=== PATIENT | female | born 1940 | race Caucasian/White ===

== ENCOUNTER 2017-06-24 10:24 | Observation (INO) ==
[2017-06-24] MEDS ORDERED: Dextrose Gel 15 GM/37.5 ML TUBE PO PRN ×2 (14:25)
[2017-06-24] MEDS ORDERED: D5% in Water 1,000 ML IVC PRN ×2 (14:25→21:39)
[2017-06-24] MEDS ORDERED: *HR* Dextrose 50 % in Water (Syg) 50 ML SYRINGE IVP PRN (14:25)
--- NOTE | 2017-06-24 14:30 | Internal Med History&Physical ---
Date of Encounter: 06/24/17 Time of Encounter: 14:28 Assessment and Plan (1) Renal failure (ARF), acute on chronic Current visit: Yes Status: Acute [place] [facility] [place] Multiple lesions noted in kidneys History of IgA-MGUS Electropheresis for light chains ordered Hold all nephrotoxic medications Nephrology consulted Qualifiers: Acute renal failure type: unspecified Chronic kidney disease stage: stage 4 (severe) Qualified Code(s): N17.9 - Acute kidney failure, unspecified; N18.4 - Chronic kidney disease, stage 4 (severe); N18.4 - Chronic kidney disease , stage 4 (severe); N18.4 - Chronic kidney disease, stage 4 (severe); N18.4 - Chronic kidney disease, stage 4 (severe) (2) Anemia Current visit: Yes Status: Acute Likely secondary to CKD but check FOB Above transfusion limit Continue to monitor Qualifiers: Anemia type: unspecified type Qualified Code(s): D64.9 - Anemia, unspecified (3) MGUS (monoclonal gammopathy of unknown significance) Current visit: No Status: Acute Protein electrophoresis for light chains ordered. (4) Diabetes mellitus Current visit: No Status: Acute Hold oral agents and start LD SSI with meals and qACHS AccuChecks Qualifiers: Diabetes mellitus type: type 2 Diabetes mellitus complication status: with unspecified complications Diabetes mellitus auto care center manager insulin use: unspecified auto care center manager insulin use status Qualified Code(s): E11.8 - Type 2 diabetes mellitus with unspecified complications (5) Bronchitis Current visit: Yes Status: Acute She was started on Rocephin and Azithromycin at [facility] but she may be devolping PNA. Start Levaquin DuoNebs as needed Internal Medicine - H&P: HPI Chief complaint: ARF Admitted From: Hospital to Hospital Transfer History of present illness: 76 yr old woman transferred from [facility] in [place] with ARF. She has been previously diagnosed with IgA MGUS and was evaluated by Dr. Ramirez in 2014 for her CKD-III. She was admitted to [facility] about 3 days ago with "allergic Bronchitis and treated with Rocephin and Azithromycin plus SoluMedrol. Her routine labs reveal a significant change in renal function since her last available labs at [facility] (12/2016). At that time her KERI, Cr, eGFR were 45,2.31,21 respectively and at [facility] 81,3.59, 12 respectively. Additionally she appears volume overloaded with a possible pneumonia. A CT-Chest, Abdoman/ Pelvis as well as a renal U/S which showed nonspecific renal lesions. A possible hemorrhagic cyst was noted in the left idney and 3 small lessions likely representing benign cysts in the right kidney. Also a 4.5 x 4.1 cm mass was noted in the lower abdomen requiring further w/u. She cannot tell us if she's had changes to her stools, melanna or hematochezia. At [facility] she had a TTE which was read as grossly normal. She's hemodynamically stable but has coarse lung sounds and is requiring supplemental O2 now. Her additional comorbid conditions include TIA, DM-2, obesity and essential HTN. Past Med Surg Social Fam HX - Past Medical History Medical history: diabetes, hyperlipidemia, hypertension, renal disease Psychiatric history: depression - Past Surgical History Surgical History: appendectomy, cholecystectomy, hysterectomy, knee replacement , orthopedic, other - Social History Smoking Status: Never smoker Alcohol use: none Drug use: none - Family History Mother Living Status: Hx Family Endocrine Disorder: Yes (DM) Father Living Status: Internal Medicine - H&P: Meds Allopurinol [Zyloprim 100 MG] 200 mg PO DAILY 05/13/15 [History] Cholecalciferol (Vitamin D3) [Vitamin D3] 10,000 unit PO DAILY 05/13/15 [History ] HYDROcodone/Acet 5/325 mg [[place] 5-325 mg] 1 tab PO Q6H PRN 05/13/15 [History] amLODIPine [Norvasc] 5 mg PO DAILY 05/13/15 [History] GlipiZIDE XL (24 HR) [Glucotrol XL] 2.5 mg PO DAILY 03/22/16 [History] Lovastatin [Mevacor] 40 mg PO HS 03/22/16 [History] [place]-3/Dha/Epa/Fish Oil [Fish Oil 1,000 mg Softgel] 1 each PO DAILY 03/22/16 [ History] Venlafaxine [Effexor] 75 mg PO TID 03/22/16 [History] Aspirin Enteric Coated [Aspirin EC] 81 mg PO DAILY #30 tablet. 03/25/16 [Rx] cloNIDine HCl [CloNIDine HCl] 1 tab PO BID 06/24/17 [History] 3 Allergy/AdvReac Type Severity Reaction Status Date / Time ETHAN Inhibitors Allergy Cough Verified 03/22/16 16:25 All Systems PM: A 10-system review of systems was performed and is negative for pertinent findings except as documented above in the HPI. - Constitutional Vitals: Temp Pulse Resp BP Pulse Ox 98.9 F 103 15 151/76 96 06/24/17 13:57 06/24/17 13:57 06/24/17 13:57 06/24/17 13:57 06/24/17 13:57 Internal Med - H&P Results - Labs CBC & Chem 7: 06/24/17 14:40 06/24/17 14:40
[2017-06-24 14:54] LABS: Basophils % 0.2 %; Eosinophils # 0.1 K/mcL (0.0-0.6); Eosinophils % 0.7 %; Hematocrit 24.1 % (35.3-44.9); Hemoglobin 8.1 g/dL (11.5-15.4); Immature Granulocytes % 1.2 % (0-4); Lymphocytes % 8.8 %; Mean Corpuscular HGB Conc 33.6 g/dL (31.6-35.5); Mean Corpuscular Hemoglobin 29.7 pg (28.0-33.3); Mean Corpuscular Volume 88.3 fL (83.0-100.0); Mean Platelet Volume 9.9 fL (9.4-12.4); Monocytes # 0.4 K/mcL (0.0-1.3); Monocytes % 3.3 %; Neutrophils # 9.9 K/mcL (1.6-8.9); Platelet Count 114 K/mcL (140-400); Red Blood Count 2.73 M/mcL (3.82-4.97); Red Cell Distribution Width 14.4 % (11.5-14.5); Segmented Neutrophils % 85.8 %
[2017-06-24 15:03] LABS: Albumin 3.3 g/dL (3.5-5.7); Bilirubin,Total 0.4 mg/dL (0.3-1.0); Calcium 8.2 mg/dL (8.6-10.3); Potassium 5.1 mEq/L (3.5-5.1)
[2017-06-24 15:09] LABS: Albumin/Globulin Ratio 1.4 (1.1-2.2); Globulin 2.3 g/dL (2.4-3.5); Total Protein 5.6 g/dL (6.4-8.9)
[2017-06-24] MEDS ORDERED: Acetaminophen 325 MG TABLET PO PRN (16:42)
[2017-06-24] MEDS: Insulin LISPRO 300 UNITS/3 ML VIAL SQ SCH ×2 (17:31→22:03)
[2017-06-24] MEDS: Levofloxacin 750 MG/150 ML 750 MG/150 ML BAG IVPB SCH (17:32)
[2017-06-24] MEDS: cloNIDine HCl 0.1 MG TABLET PO SCH (21:59)
--- NOTE | 2017-06-25 07:41 | Nephrology Consult Note ---
Date of Encounter: 06/25/17 Time of Encounter: 07:39 Assessment and Plan (1) Renal failure (ARF), acute on chronic Current Visit: Yes Status: Acute The patient has a history of stage III chronic kidney disease with significant proteinuria likely related related to diabetic nephropathy. Her serum creatinine has been known to progressively worsen between 2015 in 2017. At this point time is difficult to say if her worsening renal function is related to progressive chronic kidney disease or if there is an acute component superimposed on chronic kidney disease. Her renal ultrasound did not suggest any hydronephrosis. She currently has a Menendez catheter and so we cannot evaluate her bladder emptying. There is no obvious sign of nephrotoxin exposure. This may represent progressive chronic kidney disease. We will check a few other studies as well as workup her anemia while she is here. Nephrotoxins should be avoided. Additional recommendations will be made as her evaluation proceeds. Qualifiers: Acute renal failure type: unspecified Chronic kidney disease stage: stage 4 (severe) Qualified Code(s): N17.9 - Acute kidney failure, unspecified; N18.4 - Chronic kidney disease, stage 4 (severe); N18.4 - Chronic kidney disease , stage 4 (severe); N18.4 - Chronic kidney disease, stage 4 (severe); N18.4 - Chronic kidney disease, stage 4 (severe) (2) Benign hypertension with chronic kidney disease, stage III Current Visit: Yes Status: Acute (3) Type 2 diabetes mellitus with diabetic chronic kidney disease Current Visit: Yes Status: Acute Qualifiers: Diabetes mellitus director long term care insulin use: with snf use Chronic kidney disease stage: stage 3 (moderate) Qualified Code(s): E11.22 - Type 2 diabetes mellitus with diabetic chronic kidney disease; N18.3 - Chronic kidney disease, stage 3 (moderate); N18.3 - Chronic kidney disease, stage 3 (moderate); Z79.4 - intermediate project manager (current) use of insulin; Z79.4 - custodial (current) use of insulin; Z79.4 - intermediate project manager (current) use of insulin; Z79.4 - custodial (current) use of insulin (4) MGUS (monoclonal gammopathy of unknown significance) Current Visit: No Status: Acute History of Present Illness - History of Present Illness This is a 76-year-old female was previously previously been seen for stage III chronic kidney disease. She was recently admitted a [facility] in [place] for which she describes as acute bronchitis. [facility] and management per her request. She says she was admitted to the hospital after several days of cough with sputum production along with shortness of breath. She was diagnosed with bronchitis and treated with antibiotics. On her transfer to a dinner she was noted to have a serum creatinine of 3.30. Previous creatinine values were 2.31 in December 2016 and 1.9 in 2016. She has a history of proteinuria. She also been diagnosed with IgA MGUS seen oncology previously. She does have a history of diabetes hypertension and arthritis. She has symptoms of bladder incontinence. She also says that she has several urinary tract infections per year and receives antibiotics. She denies any hematuria. She denies taking any [id number] nonsteroidal anti-inflammatory agents. She says in general she is feeling better from the standpoint of her bronchitis. The recent renal ultrasound shows normal-sized kidneys with no hydronephrosis. Several renal cysts have been noted. Past Med Surg Social Fam HX - Past Medical History Medical history: diabetes, hyperlipidemia, hypertension, renal disease Psychiatric history: depression - Past Surgical History Surgical History: appendectomy, cholecystectomy, hysterectomy, knee replacement , orthopedic, other - Social History Smoking Status: Never smoker Alcohol use: none Drug use: none - Family History Mother Living Status: Hx Family Endocrine Disorder: Yes (DM) Father Living Status: Medications and Allergies Allopurinol [Zyloprim 100 MG] 200 mg PO DAILY 05/13/15 [History] Cholecalciferol (Vitamin D3) [Vitamin D3] 10,000 unit PO DAILY 05/13/15 [History ] HYDROcodone/Acet 5/325 mg [[place] 5-325 mg] 1 tab PO Q6H PRN 05/13/15 [History] amLODIPine [Norvasc] 5 mg PO DAILY 05/13/15 [History] GlipiZIDE XL (24 HR) [Glucotrol XL] 2.5 mg PO DAILY 03/22/16 [History] Lovastatin [Mevacor] 40 mg PO HS 03/22/16 [History] [place]ina-3/Dha/Epa/Fish Oil [Fish Oil 1,000 mg Softgel] 1 each PO DAILY 03/22/16 [ History] Venlafaxine [Effexor] 75 mg PO TID 03/22/16 [History] Aspirin Enteric Coated [Aspirin EC] 81 mg PO DAILY #30 tablet. 03/25/16 [Rx] cloNIDine HCl [CloNIDine HCl] 1 tab PO BID 06/24/17 [History] 3 Allergy/AdvReac Type Severity Reaction Status Date / Time ETHAN Inhibitors Allergy Cough Verified 03/22/16 16:25 Review of Systems Constitutional: as per HPI, weakness Eyes: bilateral: blurred vision (patient denies), diplopia (patient denies) Nose, mouth and throat: no dizziness, no headache(s) Cardiovascular: as per HPI, dyspnea, dyspnea on exertion Respiratory: as per HPI, cough, dyspnea, dyspnea on exertion Gastrointestinal: nausea, vomiting Genitourinary Female: urinary incontinence Musculoskeletal: no muscle weakness, no numbness Integumentary: no hirsutism, no striae Neurological: weakness Psychiatric: no depression, no difficulty concentrating Endocrine: as per HPI Hematologic/Lymphatic: no easy bruising, no lymphadenopathy Exam - Vital Signs Vital signs: Initial Vital Signs Temp Pulse Resp BP Pulse Ox 98.9 F 103 15 151/76 96 06/24/17 13:57 06/24/17 13:57 06/24/17 13:57 06/24/17 13:57 06/24/17 13:57 Vital Signs - Last 8 Hours Temp Pulse Resp BP Pulse Ox 06/25/17 04:46 97.6 F 90 18 156/75 98 Intake and Output 06/24/17 06/24/17 06/25/17 15:59 23:59 07:59 Intake Total 260 / 260 Output Total 1450 / 1450 650 / 650 Balance -1190 / -1190 -650 / -650 Intake: Oral 260 / 260 Output: Catheter 1450 / 1450 650 / 650 Other: # Urine Diapers 1 2 Weight 158.2 kg 156.5 kg Blood Glucose* 275 Patient Weight 06/25/17 23:59 Weight 156.5 kg - General Appearance Exam: Patient is alert and oriented. She is in no acute distress. She is obese. She appears chronically ill. She appears pale. Lungs diminished breath sounds otherwise clear. Heart regular rate and rhythm without a murmur or S3 or S4 gallops clicks or rubs. Abdomen shows normal bowel sounds bruits masses megaly or tenderness. Lower 70 show minimal swelling. Results - Lab Results 06/24/17 14:40 06/24/17 14:40 Most recent lab results Calcium 8.2 mg/dL (8.6-10.3) L 06/24/17 14:40 Urine Creatinine 37 mg/dL 06/24/17 17:30 Urine Sodium 24.0 mEq/L 06/24/17 17:30 Consult Discharge Plan - Plan Referrals: Bill Candelaria MD [Primary Care Provider] -
[2017-06-25] MEDS: Cholecalciferol (D-3) 1,000 UNIT TABLET PO SCH (08:22)
[2017-06-25] MEDS: amLODIPine 5 MG TABLET PO SCH (08:22)
[2017-06-25] MEDS: Aspirin Enteric Coated 81 MG Tablet PO SCH (08:22)
[2017-06-25] MEDS: (Omega-3/Dha/Epa/Fish Oil [Fish Oil 1,000 Mg Softgel] PO SCH (08:23)
[2017-06-25] MEDS: Insulin LISPRO 300 UNITS/3 ML VIAL SQ SCH ×4 (08:23→22:02)
[2017-06-25] MEDS: cloNIDine HCl 0.1 MG TABLET PO SCH ×2 (08:23→22:01)
[2017-06-25] MEDS ORDERED: Levofloxacin 500 MG/100 ML 500 MG/100 ML BAG IVPB SCH (09:00)
[2017-06-25 09:07] LABS: Phosphorous 6.2 mg/dL (2.7-4.5)
[2017-06-25 09:27] LABS: Folate 14.9 ng/mL (3.0-16.0)
--- NOTE | 2017-06-25 12:12 | General Surgery Consult Note ---
Date of Encounter: 06/25/17 Time of Encounter: 12:09 Assessment and Plan (1) Abdominal mass Current Visit: Yes Status: Acute Going to have the CT uploaded into our PACS system. Once that is uploaded our review the scans with radiology. Qualifiers: Qualified Code(s): R19.00 - Intra-abdominal and pelvic swelling, mass and lump, unspecified site History of Present Illness Reason for consult: other (This 76-year-old female presents to the hospital with renal failure and a questionable pneumonia. However she was transferred in from an outlying facility. On her pre-transfers CT there was a mass identified in her pelvis. I was asked to see her for evaluation of this mass.) Past Med Surg Social Fam HX - Past Medical History Medical history: diabetes, hyperlipidemia, hypertension, renal disease Psychiatric history: depression - Past Surgical History Surgical History: appendectomy, cholecystectomy, hysterectomy, knee replacement , orthopedic, other - Social History Smoking Status: Never smoker Alcohol use: none Drug use: none - Family History Mother Living Status: Hx Family Endocrine Disorder: Yes (DM) Father Living Status: Medications and Allergies Allopurinol [Zyloprim 100 MG] 200 mg PO DAILY 05/13/15 [History] Cholecalciferol (Vitamin D3) [Vitamin D3] 10,000 unit PO DAILY 05/13/15 [History ] HYDROcodone/Acet 5/325 mg [[place] 5-325 mg] 1 tab PO Q6H PRN 05/13/15 [History] amLODIPine [Norvasc] 5 mg PO DAILY 05/13/15 [History] GlipiZIDE XL (24 HR) [Glucotrol XL] 2.5 mg PO DAILY 03/22/16 [History] Lovastatin [Mevacor] 40 mg PO HS 03/22/16 [History] [place]-3/Dha/Epa/Fish Oil [Fish Oil 1,000 mg Softgel] 1 each PO DAILY 03/22/16 [ History] Venlafaxine [Effexor] 75 mg PO TID 03/22/16 [History] Aspirin Enteric Coated [Aspirin EC] 81 mg PO DAILY #30 tablet. 03/25/16 [Rx] cloNIDine HCl [CloNIDine HCl] 1 tab PO BID 06/24/17 [History] 3 Allergy/AdvReac Type Severity Reaction Status Date / Time ETHAN Inhibitors Allergy Cough Verified 03/22/16 16:25 Review of Systems All systems PM: reviewed and no additional remarkable complaints except as stated All systems PM: A 10-system review of systems was performed and is negative for pertinent findings except as documented above in the HPI. General Surgery Exam Initial Vital Signs Temp Pulse Resp BP Pulse Ox 98.9 F 103 15 151/76 96 06/24/17 13:57 06/24/17 13:57 06/24/17 13:57 06/24/17 13:57 06/24/17 13:57 - Eyes PERRL, normal ocular movement - ENT normal pinna, normal mucosa - Respiratory normal respiratory effort, clear to percussion - Abdomen Abdomen general surgery: Present: soft, non tender - Integumentary Integumentary general surgery: Present: warm and dry, no abnormal pigmentation - Neurologic Present: CN 2-12 grossly intact, normal sensation Exam Initial Vital Signs Temp Pulse Resp BP Pulse Ox 98.9 F 103 15 151/76 96 06/24/17 13:57 06/24/17 13:57 06/24/17 13:57 06/24/17 13:57 06/24/17 13:57 Results - Labs 06/24/17 14:40 06/24/17 14:40 Abnormal lab results WBC 11.5 K/mcL (4.3-11.1) H 06/24/17 14:40 RBC 2.73 M/mcL (3.82-4.97) L 06/24/17 14:40 Hgb 8.1 g/dL (11.5-15.4) L 06/24/17 14:40 Hct 24.1 % (35.3-44.9) L 06/24/17 14:40 Plt Count 114 K/mcL (140-400) L 06/24/17 14:40 Neutrophils # 9.9 K/mcL (1.6-8.9) H 06/24/17 14:40 Sodium 130 mEq/L (136-145) L 06/24/17 14:40 Carbon Dioxide 19 mEq/L (23-29) L 06/24/17 14:40 BUN 80 mg/dL (8-23) H 06/24/17 14:40 Creatinine 3.30 mg/dL (0.60-1.20) H 06/24/17 14:40 Est GFR ( Amer) 17 (> 60) L 06/24/17 14:40 Est GFR (Non-Af Amer) 14 (> 60) L 06/24/17 14:40 Glucose 188 mg/dL (70-105) H 06/24/17 14:40 POC Glucose 254 (58-89) H 06/25/17 07:40 Lactic Acid 0.3 mmol/L (0.5-2.2) L 06/24/17 14:40 Calcium 8.2 mg/dL (8.6-10.3) L 06/24/17 14:40 Phosphorus 6.2 mg/dL (2.7-4.5) H 06/25/17 08:20 Iron 17 mcg/dL (50-170) L 06/25/17 08:20 % Saturation 6 % (15-50) L 06/25/17 08:20 Transferrin 192 mg/dL (203-362) L 06/25/17 08:20 Ferritin 175 ng/ml (10-120) H 06/25/17 08:20 Serum Total Protein 5.6 g/dL (6.4-8.9) L 06/24/17 14:40 Albumin 3.3 g/dL (3.5-5.7) L 06/24/17 14:40 Globulin 2.3 g/dL (2.4-3.5) L 06/24/17 14:40 Urine Osmolality 195 mOsm/kg (300-1090) L 06/24/17 17:30 Diabetes panel 06/24/17 Range/Units 14:40 Sodium 130 L (136-145) mEq/L Potassium 5.1 (3.5-5.1) mEq/L Chloride 102 (98-107) mEq/L Carbon Dioxide 19 L (23-29) mEq/L BUN 80 H (8-23) mg/dL Creatinine 3.30 H (0.60-1.20) mg/dL Glucose 188 H (70-105) mg/dL Calcium 8.2 L (8.6-10.3) mg/dL AST 20 (13-39) Units/L ALT 19 (7-52) Units/L Alkaline Phosphatase 79 (34-104) Units/L Albumin 3.3 L (3.5-5.7) g/dL Calcium panel 06/24/17 06/25/17 Range/Units 14:40 08:20 Calcium 8.2 L (8.6-10.3) mg/dL Phosphorus 6.2 H (2.7-4.5) mg/dL Albumin 3.3 L (3.5-5.7) g/dL Pituitary panel 06/24/17 Range/Units 14:40 Sodium 130 L (136-145) mEq/L Potassium 5.1 (3.5-5.1) mEq/L Chloride 102 (98-107) mEq/L Carbon Dioxide 19 L (23-29) mEq/L BUN 80 H (8-23) mg/dL Creatinine 3.30 H (0.60-1.20) mg/dL Glucose 188 H (70-105) mg/dL Calcium 8.2 L (8.6-10.3) mg/dL Adrenal panel 06/24/17 Range/Units 14:40 Sodium 130 L (136-145) mEq/L Potassium 5.1 (3.5-5.1) mEq/L Chloride 102 (98-107) mEq/L Carbon Dioxide 19 L (23-29) mEq/L BUN 80 H (8-23) mg/dL Creatinine 3.30 H (0.60-1.20) mg/dL Glucose 188 H (70-105) mg/dL Calcium 8.2 L (8.6-10.3) mg/dL Total Bilirubin 0.4 (0.3-1.0) mg/dL AST 20 (13-39) Units/L ALT 19 (7-52) Units/L Alkaline Phosphatase 79 (34-104) Units/L Albumin 3.3 L (3.5-5.7) g/dL All other labs normal. Consult Discharge Plan - Plan Referrals: Bill Candelaria MD [Primary Care Provider] -
--- NOTE | 2017-06-25 16:16 | Internal Med Progress Note ---
Date of Encounter: 06/25/17 Time of Encounter: 10:30 - Assessment and plan (1) Acute bronchitis Current Visit: Yes Status: Suspected Assessment and plan: Currently on IV Levaquin. Qualifiers: Bronchitis organism: other organism Qualified Code(s): J20.8 - Acute bronchitis due to other specified organisms (2) Diabetic nephropathy Current Visit: Yes Status: Suspected Assessment and plan: Pt with worsening renal function. Currently in work up per nephrology. 24 hour urine at this time. Qualifiers: Diabetes mellitus type: type 2 Qualified Code(s): E11.21 - Type 2 diabetes mellitus with diabetic nephropathy (3) Atrial fibrillation Current Visit: Yes Status: Chronic Assessment and plan: Continue home meds. Qualifiers: Atrial fibrillation type: chronic Qualified Code(s): I48.2 - Chronic atrial fibrillation (4) Anemia Current Visit: Yes Status: Chronic Qualifiers: Anemia type: due to chronic kidney disease Chronic kidney disease stage: stage 4 (severe) Qualified Code(s): N18.4 - Chronic kidney disease, stage 4 ( severe); D63.1 - Anemia in chronic kidney disease; D63.1 - Anemia in chronic kidney disease (5) Hypertension Current Visit: No Status: Chronic Assessment and plan: Controlled at this time. Continue meds. Qualifiers: Hypertension type: essential hypertension Qualified Code(s): I10 - Essential (primary) hypertension (6) MGUS (monoclonal gammopathy of unknown significance) Current Visit: No Status: Chronic (7) Abdominal mass Current Visit: Yes Status: Acute Assessment and plan: Surgery eval. Qualifiers: Abdominal location: other location Qualified Code(s): R19.09 - Other intra- abdominal and pelvic swelling, mass and lump (8) Morbid obesity with BMI of 50.0-59.9, adult Current Visit: Yes Status: Chronic - Subjective Interval history: Ms Rubin is currently in observation for acute on chronic renal failure. She remains moderate to high risk due to potential for worsening clinical status. Ms Rubin has no new complaints at this time. No CP or SOB at this time. No fever noted. Work up in progress - appreciate nephrology input. - Constitutional Vitals: Temp Pulse Resp BP Pulse Ox 98.3 F 86 18 136/77 97 06/25/17 11:36 06/25/17 11:36 06/25/17 11:36 06/25/17 11:36 06/25/17 11:36 General appearance: Present: A&O X 3, answers questions appropriately - Head Head exam: Present: normocephalic - Eye Eye exam: Present: EOMI, conjuntiva pink - ENT ENT exam: Present: mucous membranes moist - Respiratory Respiratory exam: Present: decreased breath sounds, CTAB. Absent: rales, rhonchi, wheezes - Cardiovascular Cardiovascular exam: Present: RRR. Absent: tachycardia - GI/Abdominal GI/Abdominal exam: Present: soft. Absent: tenderness - Extremities Exam Extremities exam: Present: pedal edema, warm. Absent: tenderness - Neurological Exam Neurological exam: Present: alert, oriented X3 - Skin Skin exam: Present: dry, warm. Absent: rash Internal Medicine: Result - Labs CBC & Chem 7: 06/24/17 14:40 06/24/17 14:40 - Impressions Impressions Retroperitoneum Ultrasound 06/24/17 14:17 IMPRESSION: 1. Limited ultrasound of the kidneys due to patient body habitus but no gross evidence for hydronephrosis. However, I would suggest CT scan for further evaluation. D/ / Antwan Harris MD / Antwan Harris MD Interpreting Provider: Antwan Harris MD Chest X-Ray 06/24/17 14:44 IMPRESSION: No acute process. D/ / Will Hensley MD / Will Hensley MD Interpreting Provider: Will Hensley MD Consult Discharge Plan - Plan Referrals: Bill Candelaria MD [Primary Care Provider] -
[2017-06-26 05:24] LABS: Hematocrit 24.4 % (35.3-44.9); Hemoglobin 7.7 g/dL (11.5-15.4); Mean Corpuscular HGB Conc 31.6 g/dL (31.6-35.5); Mean Corpuscular Hemoglobin 28.8 pg (28.0-33.3); Mean Corpuscular Volume 91.4 fL (83.0-100.0); Mean Platelet Volume 10.1 fL (9.4-12.4); Platelet Count 150 K/mcL (140-400); Red Blood Count 2.67 M/mcL (3.82-4.97); Red Cell Distribution Width 14.5 % (11.5-14.5)
[2017-06-26 05:32] LABS: Albumin/Globulin Ratio 1.3 (1.1-2.2); Bilirubin,Total 0.3 mg/dL (0.3-1.0); Calcium 8.2 mg/dL (8.6-10.3); Globulin 2.4 g/dL (2.4-3.5); Potassium 5.3 mEq/L (3.5-5.1); Total Protein 5.4 g/dL (6.4-8.9)
[2017-06-26] MEDS: Loratadine 10 MG TABLET PO SCH (08:02)
[2017-06-26] MEDS: amLODIPine 5 MG TABLET PO SCH (08:02)
[2017-06-26] MEDS: (Omega-3/Dha/Epa/Fish Oil [Fish Oil 1,000 Mg Softgel] PO SCH (08:02)
[2017-06-26] MEDS: Aspirin Enteric Coated 81 MG Tablet PO SCH (08:02)
[2017-06-26] MEDS: Cholecalciferol (D-3) 1,000 UNIT TABLET PO SCH (08:02)
[2017-06-26] MEDS: cloNIDine HCl 0.1 MG TABLET PO SCH ×2 (08:02→21:07)
[2017-06-26] MEDS: Insulin LISPRO 300 UNITS/3 ML VIAL SQ SCH ×4 (08:03→21:07)
--- NOTE | 2017-06-26 09:08 | Internal Med Progress Note ---
<Hubert Morales - Last Filed: 06/26/17 14:52> Date of Encounter: 06/26/17 Time of Encounter: 08:50 - Assessment and plan (1) Acute bronchitis Current Visit: Yes Status: Suspected Assessment and plan: Currently on IV Levaquin. 750mg IV Q48H; received 1 dose thus far. Possible discharge tomorrow. Qualifiers: Bronchitis organism: other organism Qualified Code(s): J20.8 - Acute bronchitis due to other specified organisms (2) Diabetic nephropathy Current Visit: Yes Status: Suspected Assessment and plan: Pt with minimal improvement in renal function. Currently in work up per nephrology-Dr. Posey. 24 hour urine protein collected. Avoid nephrotoxins as possible. Spoke with Leann(nephrology PATIENT SAFETY COORDINATOR), maicol to follow up as outpatient. Qualifiers: Diabetes mellitus type: type 2 Qualified Code(s): E11.21 - Type 2 diabetes mellitus with diabetic nephropathy (3) Atrial fibrillation with controlled ventricular rate Current Visit: Yes Status: Acute Assessment and plan: Continue home meds. (4) Anemia Current Visit: Yes Status: Chronic Assessment and plan: Hgb down from 8.1 yesterday to 7.7 today. Patient on ASA-home medication. Patient was to received IV iron today, extravasation of medication. Will start oral iron. Qualifiers: Anemia type: due to chronic kidney disease Chronic kidney disease stage: stage 4 (severe) Qualified Code(s): N18.4 - Chronic kidney disease, stage 4 ( severe); D63.1 - Anemia in chronic kidney disease; D63.1 - Anemia in chronic kidney disease (5) Hypertension Current Visit: No Status: Chronic Assessment and plan: Controlled at this time. Continue meds. Qualifiers: Hypertension type: essential hypertension Qualified Code(s): I10 - Essential (primary) hypertension (6) MGUS (monoclonal gammopathy of unknown significance) Current Visit: No Status: Chronic (7) Abdominal mass Current Visit: Yes Status: Acute Assessment and plan: Evaluated by surgery, plan to follow up as outpatient. Qualifiers: Abdominal location: other location Qualified Code(s): R19.09 - Other intra- abdominal and pelvic swelling, mass and lump (8) Morbid obesity with BMI of 50.0-59.9, adult Current Visit: Yes Status: Chronic - Time Spent With Patient less than 15 minutes - Subjective Interval history: No acute events overnight, Afebrile, vital stable on 2LMP supplemental O2. No acute complaints currently. Notes overall energy has improved. Patient was laying in bed eating breakfast upon entering room. Possible discharge tomorrow. - Constitutional Vitals: Temp Pulse Resp BP Pulse Ox 97.8 F 85 18 145/58 98 06/26/17 07:41 06/26/17 07:41 06/26/17 07:41 06/26/17 07:41 06/26/17 07:41 General appearance: Present: A&O X 3, no acute distress, answers questions appropriately - Head Head exam: Present: atraumatic, normocephalic - Eye Eye exam: Present: EOMI, conjuntiva pink - ENT ENT exam: Present: mucous membranes moist - Respiratory Respiratory exam: Present: decreased breath sounds, wheezes. Absent: respiratory distress, rhonchi, stridor - Cardiovascular Cardiovascular exam: Present: RRR. Absent: diastolic murmur, systolic murmur - GI/Abdominal GI/Abdominal exam: Present: normal bowel sounds, soft. Absent: tenderness - Extremities Exam Extremities exam: Present: pedal edema (1+). Absent: cyanotic, tenderness - Neurological Exam Neurological exam: Present: alert, oriented X3 - Skin Skin exam: Present: dry, warm Internal Medicine: Result - Labs CBC & Chem 7: 06/26/17 04:42 06/26/17 04:42 Labs: Short CBC 06/26/17 Range/Units 04:42 WBC 10.0 (4.3-11.1) K/mcL Hgb 7.7 L (11.5-15.4) g/dL Hct 24.4 L (35.3-44.9) % Plt Count 150 (140-400) K/mcL BMP 06/26/17 04:42 Sodium 133 L Potassium 5.3 H Chloride 106 Carbon Dioxide 18 L BUN 78 H Creatinine 3.00 H Glucose 203 H Calcium 8.2 L Liver Function 06/26/17 Range/Units 04:42 Total Bilirubin 0.3 (0.3-1.0) mg/dL AST 14 (13-39) Units/L ALT 13 (7-52) Units/L Alkaline Phosphatase 63 (34-104) Units/L Albumin 3.0 L (3.5-5.7) g/dL Consult Discharge Plan - Plan Referrals: Raudel Reagan DO [Partnered Physician] - 07/11/17 10:50 am (hospital follow- up pelvic mass) Bill Candelaria MD [Primary Care Provider] - <Larry Adam A - Last Filed: 06/26/17 17:51> Date of Encounter: 06/26/17 - Assessment and plan (1) Acute bronchitis Current Visit: Yes Status: Suspected Qualifiers: Bronchitis organism: other organism Qualified Code(s): J20.8 - Acute bronchitis due to other specified organisms (2) Diabetic nephropathy Current Visit: Yes Status: Suspected Qualifiers: Diabetes mellitus type: type 2 Qualified Code(s): E11.21 - Type 2 diabetes mellitus with diabetic nephropathy (3) Atrial fibrillation Current Visit: Yes Status: Chronic Qualifiers: Atrial fibrillation type: chronic Qualified Code(s): I48.2 - Chronic atrial fibrillation (4) Anemia Current Visit: Yes Status: Chronic Qualifiers: Anemia type: due to chronic kidney disease Chronic kidney disease stage: stage 4 (severe) Qualified Code(s): N18.4 - Chronic kidney disease, stage 4 ( severe); D63.1 - Anemia in chronic kidney disease; D63.1 - Anemia in chronic kidney disease (5) Hypertension Current Visit: No Status: Chronic Qualifiers: Hypertension type: essential hypertension Qualified Code(s): I10 - Essential (primary) hypertension (6) MGUS (monoclonal gammopathy of unknown significance) Current Visit: No Status: Chronic (7) Abdominal mass Current Visit: Yes Status: Acute Qualifiers: Abdominal location: other location Qualified Code(s): R19.09 - Other intra- abdominal and pelvic swelling, mass and lump (8) Morbid obesity with BMI of 50.0-59.9, adult Current Visit: Yes Status: Chronic - Time Spent With Patient My time was 37min - Constitutional Vitals: Temp Pulse Resp BP Pulse Ox 98 F 84 18 163/78 96 06/26/17 15:23 06/26/17 15:23 06/26/17 15:23 06/26/17 15:23 06/26/17 15:23 Internal Medicine: Result - Labs CBC & Chem 7: 06/26/17 04:42 06/26/17 04:42 Labs: Short CBC 06/26/17 Range/Units 04:42 WBC 10.0 (4.3-11.1) K/mcL Hgb 7.7 L (11.5-15.4) g/dL Hct 24.4 L (35.3-44.9) % Plt Count 150 (140-400) K/mcL BMP 06/26/17 04:42 Sodium 133 L Potassium 5.3 H Chloride 106 Carbon Dioxide 18 L BUN 78 H Creatinine 3.00 H Glucose 203 H Calcium 8.2 L Liver Function 06/26/17 Range/Units 04:42 Total Bilirubin 0.3 (0.3-1.0) mg/dL AST 14 (13-39) Units/L ALT 13 (7-52) Units/L Alkaline Phosphatase 63 (34-104) Units/L Albumin 3.0 L (3.5-5.7) g/dL - Attending Attestation I examined this patient and my medical decision-making was reviewed with the Resident Physician on 06/26/17. I agree with the documented findings, disposition and treatment plan as described except to the extent set forth below. Ms Rubin is currently in observation for acute on chronic renal failure. Ms Rubin feels OK. She had iron infusion infiltrate today. No fever or chills. H/H low as well today. Completing 24 h urine. Exam alert Comfortable Mucus membranes dry Heart irreg No wheeze Abd soft Area of infiltration of IV iron noted R forearm I/P 1. Anemia due to CKD 2. CKD Further diagnoses and plan as above. Anticipate d/c in next 1-2 days
[2017-06-26] MEDS ORDERED: Ferumoxytol 510 MG in 0.9 % Sodium Chloride 100 ML IVPB ONE (10:14)
--- NOTE | 2017-06-26 10:26 | Nephrology Progress Note ---
Date of Encounter: 06/26/17 Time of Encounter: 09:35 - Assessment and Plan (1) Renal failure (ARF), acute on chronic Current Visit: Yes Status: Acute SAUL superimposed on CKD 4, baseline creat 1.8-2.3. Hx-IgA MGUS, proteinuria. Renal fct improving, creat 3.0. Documented urine output 1700cc. 24 hr urine protein in progress.Tsat 6-will order Feraheme infusion. Continue to monitor, avoid nephrotoxins. Qualifiers: Acute renal failure type: unspecified Chronic kidney disease stage: stage 4 (severe) Qualified Code(s): N17.9 - Acute kidney failure, unspecified; N18.4 - Chronic kidney disease, stage 4 (severe); N18.4 - Chronic kidney disease , stage 4 (severe); N18.4 - Chronic kidney disease, stage 4 (severe); N18.4 - Chronic kidney disease, stage 4 (severe) Subjective Interval history: Resting quietly, states breathing much easier and feels better. Objective - Vital Signs Vital signs: Vital Signs Temp Pulse Resp BP Pulse Ox 06/26/17 07:41 97.8 F 85 18 145/58 98 06/26/17 04:26 97.9 F 89 18 149/60 94 06/25/17 23:12 98.9 F 92 17 158/82 98 06/25/17 19:34 98.8 F 96 19 193/88 96 06/25/17 16:12 98.6 F 94 18 137/75 96 06/25/17 11:36 98.3 F 86 18 136/77 97 Intake and Output 06/25/17 06/26/17 06/26/17 23:59 07:59 15:59 Intake Total 240 / 240 480 / 480 Output Total 400 / 400 1200 / 1200 Balance -160 / -160 -1200 / -1200 480 / 480 Intake: Oral 240 / 240 480 / 480 Output: Urine 650 / 650 Catheter 400 / 400 550 / 550 Other: Meal Dinner Breakfast Percent of Meal Consumed 75% 95% Weight 157 kg Blood Glucose* 254 196 Patient Weight 06/26/17 23:59 Weight 157 kg - General Appearance General appearance: Present: well-developed, well-nourished, appears started age , obese EENT: Present: mucous membranes moist Neck: Present: no JVD Respiratory: Present: clear Cardiology: Present: edema, regular rate, regular rhythm Additional Comments: mild Gastrointestinal: Present: normoactive bowel sounds, no tenderness, obese Integumentary: Present: warm and dry Neurologic: Present: alert and oriented x3 - Lab 06/26/17 04:42 06/26/17 04:42 Most recent lab results Calcium 8.2 mg/dL (8.6-10.3) L 06/26/17 04:42 Phosphorus 6.2 mg/dL (2.7-4.5) H 06/25/17 08:20 Magnesium 2.3 mg/dL (1.6-2.6) 06/26/17 04:42 Urine Creatinine 37 mg/dL 06/24/17 17:30 Urine Sodium 24.0 mEq/L 06/24/17 17:30 Consult Discharge Plan - Plan Referrals: Bill Candelaria MD [Primary Care Provider] -
--- NOTE | 2017-06-26 11:13 | General Surgery Progress Note ---
Date of Encounter: 06/26/17 Time of Encounter: 10:30 - Assessment and Plan (1) Abdominal mass Current Visit: Yes Status: Acute Recommend outpatient follow-up with Dr. Reagan for further work-up and management No urgent surgical intervention indicated at this time Recommend continued treatment of acute renal failure prior to proceeding with further surgical intervention Will schedule appointment for [address] Reagan Continue Diabetic Diet Supportive measures Qualifiers: Abdominal location: other location Qualified Code(s): R19.09 - Other intra- abdominal and pelvic swelling, mass and lump (2) Renal failure (ARF), acute on chronic Current Visit: Yes Status: Chronic Management per nephrology Qualifiers: Acute renal failure type: unspecified Chronic kidney disease stage: stage 4 (severe) Qualified Code(s): N17.9 - Acute kidney failure, unspecified; N18.4 - Chronic kidney disease, stage 4 (severe); N18.4 - Chronic kidney disease , stage 4 (severe); N18.4 - Chronic kidney disease, stage 4 (severe); N18.4 - Chronic kidney disease, stage 4 (severe) Subjective Patient reports: no new complaints, feels better, tolerating a regular diet ( Diabetic), flatus, bowel movement, afebrile Objective Vital Signs - Last 8 Hours Temp Pulse Resp BP Pulse Ox 06/26/17 07:41 97.8 F 85 18 145/58 98 06/26/17 04:26 97.9 F 89 18 149/60 94 Intake and Output 06/25/17 06/26/17 06/26/17 23:59 07:59 15:59 Intake Total 240 / 240 480 / 480 Output Total 400 / 400 1200 / 1200 Balance -160 / -160 -1200 / -1200 480 / 480 Intake: Oral 240 / 240 480 / 480 Output: Urine 650 / 650 Catheter 400 / 400 550 / 550 Other: Meal Dinner Breakfast Percent of Meal Consumed 75% 95% Weight 157 kg Blood Glucose* 254 196 Patient Weight 06/26/17 23:59 Weight 157 kg - General physical appearance well developed, well nourished, no distress, chronically ill, obese - Eyes normal ocular movement - ENT normal mucosa, atraumatic, normocephalic - Neck Neck exam: trachea midline - Respiratory normal respiratory effort, clear to auscultation - Cardiovascular Cardiovascular exam: Present: RRR - Abdomen Abdomen: Present: bowel sounds present, soft, non tender - Neurologic CN 2-12 grossly intact - Psychiatric oriented to time, oriented to person, oriented to place, speech is normal, memory intact - Labs 06/26/17 04:42 06/26/17 04:42 Diabetes panel 06/26/17 Range/Units 04:42 Sodium 133 L (136-145) mEq/L Potassium 5.3 H (3.5-5.1) mEq/L Chloride 106 (98-107) mEq/L Carbon Dioxide 18 L (23-29) mEq/L BUN 78 H (8-23) mg/dL Creatinine 3.00 H (0.60-1.20) mg/dL Glucose 203 H (70-105) mg/dL Calcium 8.2 L (8.6-10.3) mg/dL AST 14 (13-39) Units/L ALT 13 (7-52) Units/L Alkaline Phosphatase 63 (34-104) Units/L Albumin 3.0 L (3.5-5.7) g/dL Calcium panel 06/26/17 Range/Units 04:42 Calcium 8.2 L (8.6-10.3) mg/dL Albumin 3.0 L (3.5-5.7) g/dL Pituitary panel 06/26/17 Range/Units 04:42 Sodium 133 L (136-145) mEq/L Potassium 5.3 H (3.5-5.1) mEq/L Chloride 106 (98-107) mEq/L Carbon Dioxide 18 L (23-29) mEq/L BUN 78 H (8-23) mg/dL Creatinine 3.00 H (0.60-1.20) mg/dL Glucose 203 H (70-105) mg/dL Calcium 8.2 L (8.6-10.3) mg/dL Adrenal panel 06/26/17 Range/Units 04:42 Sodium 133 L (136-145) mEq/L Potassium 5.3 H (3.5-5.1) mEq/L Chloride 106 (98-107) mEq/L Carbon Dioxide 18 L (23-29) mEq/L BUN 78 H (8-23) mg/dL Creatinine 3.00 H (0.60-1.20) mg/dL Glucose 203 H (70-105) mg/dL Calcium 8.2 L (8.6-10.3) mg/dL Total Bilirubin 0.3 (0.3-1.0) mg/dL AST 14 (13-39) Units/L ALT 13 (7-52) Units/L Alkaline Phosphatase 63 (34-104) Units/L Albumin 3.0 L (3.5-5.7) g/dL Consult Discharge Plan - Plan Referrals: Bill Candelaria MD [Primary Care Provider] - Raudel Reagan DO [Partnered Physician] - 07/11/17 10:50 am (hospital follow- up pelvic mass) - Attending Attestation For this encounter, I have reviewed the CARDIAC MONITOR or PA documentation, treatment plan, and medical decision making; and I have had face to face time with this patient.
[2017-06-26 14:36] LABS: Total Volume 24 Hour,Urine 2.3 Liters (0.60-1.60)
[2017-06-26] MEDS: Levofloxacin 750 MG/150 ML 750 MG/150 ML BAG IVPB SCH (16:37)
[2017-06-27 07:49] LABS: Basophils % 0.3 %; Eosinophils # 0.7 K/mcL (0.0-0.6); Eosinophils % 9.4 %; Hematocrit 24.1 % (35.3-44.9); Hemoglobin 7.6 g/dL (11.5-15.4); Immature Granulocytes % 1.1 % (0-4); Lymphocytes # 2.1 K/mcL (0.6-4.6); Lymphocytes % 29.4 %; Mean Corpuscular HGB Conc 31.5 g/dL (31.6-35.5); Mean Corpuscular Hemoglobin 28.8 pg (28.0-33.3); Mean Corpuscular Volume 91.3 fL (83.0-100.0); Monocytes # 0.8 K/mcL (0.0-1.3); Neutrophils # 3.5 K/mcL (1.6-8.9); Platelet Count 139 K/mcL (140-400); Red Blood Count 2.64 M/mcL (3.82-4.97); Red Cell Distribution Width 14.6 % (11.5-14.5); Segmented Neutrophils % 48.8 %
[2017-06-27] MEDS ORDERED: Ferumoxytol 510 MG in 0.9 % Sodium Chloride 100 ML IVPB ONE (08:07)
[2017-06-27] MEDS: Cholecalciferol (D-3) 1,000 UNIT TABLET PO SCH (08:16)
[2017-06-27] MEDS: Loratadine 10 MG TABLET PO SCH (08:16)
[2017-06-27] MEDS: cloNIDine HCl 0.1 MG TABLET PO SCH (08:16)
[2017-06-27] MEDS: Aspirin Enteric Coated 81 MG Tablet PO SCH (08:16)
[2017-06-27] MEDS: Insulin LISPRO 300 UNITS/3 ML VIAL SQ SCH ×2 (08:21→11:38)
[2017-06-27 08:48] LABS: Calcium 8.4 mg/dL (8.6-10.3); Potassium 5.2 mEq/L (3.5-5.1)
--- NOTE | 2017-06-27 08:57 | Nephrology Progress Note ---
Date of Encounter: 06/27/17 Time of Encounter: 08:30 - Assessment and Plan (1) Renal failure (ARF), acute on chronic Current Visit: Yes Status: Chronic SAUL superimposed on CKD 4, baseline creat 1.8-2.3. Hx-IgA MGUS, proteinuria. Renal fct improving, creat 2.79. Documented urine output 1900cc. 24 hr urine protein 3+gms-nephrotic range. Tsat 6-will order Feraheme infusion x 2. Continue to monitor, avoid nephrotoxins. Qualifiers: Acute renal failure type: unspecified Chronic kidney disease stage: stage 4 (severe) Qualified Code(s): N17.9 - Acute kidney failure, unspecified; N18.4 - Chronic kidney disease, stage 4 (severe); N18.4 - Chronic kidney disease , stage 4 (severe); N18.4 - Chronic kidney disease, stage 4 (severe); N18.4 - Chronic kidney disease, stage 4 (severe) Subjective Interval history: Resting quietly, states breathing much easier and feels better. Objective - Vital Signs Vital signs: Vital Signs Temp Pulse Resp BP Pulse Ox 06/27/17 07:44 98.1 F 86 18 139/89 98 06/27/17 05:13 98.7 F 85 17 188/95 94 06/26/17 20:55 96 06/26/17 19:18 98.1 F 88 18 178/84 96 06/26/17 15:23 98 F 84 18 163/78 96 06/26/17 11:44 97.8 F 83 17 122/54 96 Intake and Output 06/26/17 06/27/17 06/27/17 23:59 07:59 15:59 Intake Total 240 / 240 600 / 600 Output Total 1750 / 1750 1450 / 1450 Balance -1510 / -1510 -1450 / -1450 600 / 600 Intake: Oral 240 / 240 600 / 600 Output: Urine 1250 / 1250 Catheter 500 / 500 1450 / 1450 Other: Meal Dinner Breakfast Percent of Meal Consumed 100% 100% Weight 156.9 kg Blood Glucose* 233 166 Patient Weight 06/27/17 23:59 Weight 156.9 kg - General Appearance General appearance: Present: well-developed, well-nourished, appears started age , obese EENT: Present: mucous membranes moist Neck: Present: no JVD Respiratory: Present: clear Cardiology: Present: edema, regular rate, regular rhythm Additional Comments: trace LE pitting edema Gastrointestinal: Present: normoactive bowel sounds, no tenderness Integumentary: Present: warm and dry Neurologic: Present: alert and oriented x3 - Lab 06/27/17 06:09 06/27/17 06:09 Most recent lab results Calcium 8.4 mg/dL (8.6-10.3) L 06/27/17 06:09 Phosphorus 6.2 mg/dL (2.7-4.5) H 06/25/17 08:20 Magnesium 2.3 mg/dL (1.6-2.6) 06/26/17 04:42 Urine Creatinine 60 mg/dL 06/26/17 11:30 Ur Total Protein 24 Hr 3427 mg/day (50-80) H 06/26/17 11:30 Urine Sodium 24.0 mEq/L 06/24/17 17:30 Urine Total Protein 149 mg/dL (1-14) H 06/26/17 11:30 Consult Discharge Plan - Plan Referrals: Raudel Reagan DO [Partnered Physician] - 07/11/17 10:50 am (hospital follow- up pelvic mass) Bill Candelaria MD [Primary Care Provider] -
[2017-06-27] MEDS ORDERED: amLODIPine 5 MG TABLET PO SCH (09:00)
--- NOTE | 2017-06-27 09:50 | Discharge Summary ---
<Hubert Morales - Last Filed: 06/27/17 09:46> Date of Encounter: 06/27/17 Time of Encounter: 07:30 - Discharge Diagnosis (1) Acute bronchitis Priority: Primary Status: Suspected Qualifiers: Bronchitis organism: other organism Qualified Code(s): J20.8 - Acute bronchitis due to other specified organisms (2) Diabetic nephropathy Priority: Secondary Status: Suspected Qualifiers: Diabetes mellitus type: type 2 Qualified Code(s): E11.21 - Type 2 diabetes mellitus with diabetic nephropathy (3) Atrial fibrillation with controlled ventricular rate Priority: Secondary Status: Acute (4) Anemia Priority: Secondary Status: Chronic Qualifiers: Anemia type: due to chronic kidney disease Chronic kidney disease stage: stage 4 (severe) Qualified Code(s): N18.4 - Chronic kidney disease, stage 4 ( severe); D63.1 - Anemia in chronic kidney disease; D63.1 - Anemia in chronic kidney disease (5) Hypertension Priority: Secondary Status: Chronic Qualifiers: Hypertension type: essential hypertension Qualified Code(s): I10 - Essential (primary) hypertension (6) MGUS (monoclonal gammopathy of unknown significance) Priority: Secondary Status: Chronic (7) Abdominal mass Priority: Secondary Status: Acute Qualifiers: Abdominal location: other location Qualified Code(s): R19.09 - Other intra- abdominal and pelvic swelling, mass and lump (8) Morbid obesity with BMI of 50.0-59.9, adult Priority: Secondary Status: Chronic (9) Positive occult stool blood test Priority: Secondary Status: Acute - Discharge Medications Prescriptions: Ferrous Sulfate 325 mg PO BIDWM #60 tablet levoFLOXacin [Levaquin] 500 mg PO DAILY #3 tablet Omeprazole [PriLOSEC] 40 mg PO DAILY #30 cap Home Medications: Allopurinol [Zyloprim 100 MG] 200 mg PO DAILY 05/13/15 [History] Cholecalciferol (Vitamin D3) [Vitamin D3] 10,000 unit PO DAILY 05/13/15 [History ] HYDROcodone/Acet 5/325 mg [[place] 5-325 mg] 1 tab PO Q6H PRN 05/13/15 [History] amLODIPine [Norvasc] 5 mg PO DAILY 05/13/15 [History] GlipiZIDE XL (24 HR) [Glucotrol XL] 2.5 mg PO DAILY 03/22/16 [History] Lovastatin [Mevacor] 40 mg PO HS 03/22/16 [History] [place]-3/Dha/Epa/Fish Oil [Fish Oil 1,000 mg Softgel] 1 each PO DAILY 03/22/16 [ History] Venlafaxine [Effexor] 75 mg PO TID 03/22/16 [History] Aspirin Enteric Coated [Aspirin EC] 81 mg PO DAILY #30 tablet. 03/25/16 [Rx] cloNIDine HCl [CloNIDine HCl] 1 tab PO BID 06/24/17 [History] Cetirizine HCl 10 mg PO DAILY 06/25/17 [History] HYDROcodone/Acet 5/325 mg [[place] 5-325 mg] 1 tab PO Q6H PRN 06/25/17 [History] Losartan Potassium [Cozaar] 50 mg PO DAILY 06/25/17 [History] Ferrous Sulfate 325 mg PO BIDWM #60 tablet 06/27/17 [Rx] Omeprazole [PriLOSEC] 40 mg PO DAILY #30 cap 06/27/17 [Rx] levoFLOXacin [Levaquin] 500 mg PO DAILY #3 tablet 06/27/17 [Rx] Allergies/Adverse Reactions: 3 Allergy/AdvReac Type Severity Reaction Status Date / Time ETHAN Inhibitors Allergy Cough Verified 03/22/16 16:25 Procedures/tests Complete & Pending: Procedures Performed prior 72 hours Category Date Time Status retroperitoneal ultrasound - limited [US Exams 06/24/17 14:17 Completed retroperitoneal limited] [US] Routine Date of admission: 06/24/17 13:37 Primary care physician: Bill Candelaria MD Consults: 06/24/17 16:00 Consult to Surgery [CONS] Routine Consulting Provider: [facility] Reason for Consult: Abdominal mass Time Notified: 16:01 Call Completed: Yes 06/24/17 18:01 Consult to Nephrology [CONS] Routine Consulting Provider: [facility]/LISSA/TIFFANIE/ORI Reason for Consult: ARF Time Notified: 16:00 Call Completed: Yes Discharging clinician: Brennen Tello Anticipated date of discharge: 06/27/17 - Patient Status Disposition: Home, Self-Care Condition: Good Functional capacity at discharge: independent ambulation Overall status at discharge: patient is progressing back to baseline - Discharge Instructions Follow Up With: Raudel Reagan DO [Partnered Physician] - 07/11/17 10:50 am (hospital follow- up pelvic mass) Bill Candelaria MD [Primary Care Provider] - [facility] [Provider Group] Delta Mcdermott DO [Non-Partnered Physician] - Additional Instructions: Complete 3 additional days of antibiotic therapy with levaquin. Continue oral iron supplementation. Start PPI with Omeprazole for possible GI irritation/bleeding. Follow up with PCP in the next 5-7 days. Follow up as outpatient with Surgery of abdominal mass. Follow up as outpatient with Nephrology for kidney issues. Follow up as outpatient with GI for possible GI bleed, positive blood in stool. - Diet and Activity Activity: increase activity as tolerated Diet: diabetic diet Interval History: Patient seen and examined laying in bed, no acute distress, denies respiratory distress. Does have an occasional cough on exam.Patient found have positive occult stool test yesterday in the setting of anemia/low Hgb. Vital stable on 2 L per minute of supplemental oxygen. Offered patient further evaluation and G.I. consult during this day however patient prefers to follow-up as outpatient. Hospital course: Ms. Rubin is a 76 year old female transferred from [facility] in [place] with ARF with bronchitis- initially treated at [facility] with Rocephin and Azithromycin plus SoluMedrol. Abx here switched to IV levaquin, which patient will be sent home with orally. She has been previously diagnosed with IgA MGUS and was evaluated by Dr. Ramirez in 2014 for her CKD-III, workup for nephropathy started while inpatient, but plan is to follow up and continue workup as outpatient. Her routine labs reveal a significant change in renal function since her last available labs at [facility] (12/2016). At that time her KERI, Cr, eGFR were 45,2.31,21 respectively and at [facility] 81,3.59, [address]-Chest, Abdoman/Pelvis as well as a renal U/S which showed nonspecific renal lesions, were completed. A possible hemorrhagic cyst was noted in the left kidney and 3 small lesions likely representing benign cysts in the right kidney. Also a 4.5 x 4.1 cm mass was noted in the lower abdomen requiring further w/u. She was seen by surgery which recommended outpatient follow up n 2 weeks. Echo at [facility], reported as grossly normal. She remained hemodynamically stable, but with renal testing was found to have occult positive stool. Patient not sure of any melena or stool changes. Options discussed for inpatient vs outpatient workup. Patent prefers outpatient, Hgb stable today from yesterday. Will start omeprazole pending GI follow up. Is requiring supplemental O2 now, O2 sat 98%. Pending 6min walk test, may need to send patient home with supplemental O2. Her additional comorbid conditions include TIA, DM-2, obesity and essential HTN. - Time Spent with Patient Total time spent providing and/or coordinating discharge services: Less than 30 minutes - Constitutional Vitals: Temp Pulse Resp BP Pulse Ox 98.1 F 86 18 139/89 98 06/27/17 07:44 06/27/17 07:44 06/27/17 07:44 06/27/17 07:44 06/27/17 07:44 General appearance: Present: A&O X 3, no acute distress, answers questions appropriately - Head Head exam: Present: atraumatic, normocephalic - Eye Eye exam: Present: EOMI, conjuntiva pink, sclera anicteric - Neck Neck exam general surgery: Present: supple, trachea midline. Absent: lymphadenopathy - Respiratory Respiratory exam: Present: wheezes. Absent: accessory muscle use, rales, respiratory distress, rhonchi - Cardiovascular Cardiovascular exam: Present: RRR, +S1, +S2. Absent: diastolic murmur, gallop, rubs, systolic murmur - GI/Abdominal GI/Abdominal exam: Present: normal bowel sounds, soft, no peritoneal signs. Absent: distended, tenderness - Extremities Exam Extremities exam: Present: pedal edema (1+), warm, radial pulses palpable and symmetrical. Absent: calf tenderness, cyanotic - Neurological Exam Neurological exam: Present: oriented X3, no focal deficits. Absent: facial droop, speech deficit - Skin Skin exam: Present: dry, intact <Brennen Tello - Last Filed: 06/27/17 11:05> Date of Encounter: 06/27/17 Procedures/tests Complete & Pending: Procedures Performed prior 72 hours Category Date Time Status retroperitoneal ultrasound - limited [US Exams 06/24/17 14:17 Completed retroperitoneal limited] [US] Routine Date of admission: 06/24/17 13:37 Primary care physician: Bill Cadnelaria MD Consults: 06/24/17 16:00 Consult to Surgery [CONS] Routine Consulting Provider: [facility] Reason for Consult: Abdominal mass Time Notified: 16:01 Call Completed: Yes 06/24/17 18:01 Consult to Nephrology [CONS] Routine Consulting Provider: [facility]/LISSA/TIFFANIE/ORI Reason for Consult: ARF Time Notified: 16:00 Call Completed: Yes Hospital course: Ms. Rubin is a 76 year old female - Time Spent with Patient Total time spent providing and/or coordinating discharge services: - Constitutional Vitals: Temp Pulse Resp BP Pulse Ox 98.1 F 86 18 139/89 98 06/27/17 07:44 06/27/17 07:44 06/27/17 07:44 06/27/17 07:44 06/27/17 07:44 - Attending Attestation Chronic iron deficiency anemia, possible acute on chronic blood loss, not actively bleeding. The patient was given the option to stay another day and be worked up by the GI service but prefers to go home in order to have either endoscopy and a colonoscopy as an outpatient. She will hold aspirin until seen the GI physician. Omeprazole will be provided Complete doses of Levaquin for acute bacterial bronchitis I examined this patient and my medical decision-making was reviewed with the Resident Physician. I agree with the documented findings, disposition and treatment plan as described except to the extent set forth below. time spent : 40 min
--- NOTE | 2017-06-27 11:03 | Physician Discharge Referral ---
Home Health/Hosp Referral Info Transfer to: Home Health Provider in Charge Post Discharge: PCP - Diagnosis (1) Acute bronchitis Priority: Primary Status: Suspected (2) Diabetic nephropathy Priority: Secondary Status: Suspected (3) Atrial fibrillation with controlled ventricular rate Priority: Secondary Status: Acute (4) Anemia Priority: Secondary Status: Chronic (5) Hypertension Priority: Secondary Status: Chronic (6) MGUS (monoclonal gammopathy of unknown significance) Priority: Secondary Status: Chronic (7) Abdominal mass Priority: Secondary Status: Acute (8) Morbid obesity with BMI of 50.0-59.9, adult Priority: Secondary Status: Chronic (9) Positive occult stool blood test Priority: Secondary Status: Acute - Respiratory Orders None Smoking Cessation: Smoking cessation has been advised. For more information, call the [place] Tobacco Quit Line at 3-438-REVI-NOW. - Diet/Nutrition Diet/Nutrition Orders: Regular - Activity Activity Orders: Ambulate, Walker - Services Needed Following services are medically necessary services: Nursing, Home Health Aide, Physical Therapy Home Care Orders: Patient noted to have existing home health services, they expressed concern for limited physical capacity. Patient refused evaluation inpatient. Possible evaluate for PT/OT needs. - Transfer Medications Prescriptions: Ferrous Sulfate 325 mg PO BIDWM #60 tablet levoFLOXacin [Levaquin] 500 mg PO DAILY #3 tablet Omeprazole [PriLOSEC] 40 mg PO DAILY #30 cap Home Medications: Allopurinol [Zyloprim 100 MG] 200 mg PO DAILY 05/13/15 [History] Cholecalciferol (Vitamin D3) [Vitamin D3] 10,000 unit PO DAILY 05/13/15 [History ] HYDROcodone/Acet 5/325 mg [[place] 5-325 mg] 1 tab PO Q6H PRN 05/13/15 [History] amLODIPine [Norvasc] 5 mg PO DAILY 05/13/15 [History] GlipiZIDE XL (24 HR) [Glucotrol XL] 2.5 mg PO DAILY 03/22/16 [History] Lovastatin [Mevacor] 40 mg PO HS 03/22/16 [History] [place]-3/Dha/Epa/Fish Oil [Fish Oil 1,000 mg Softgel] 1 each PO DAILY 03/22/16 [ History] Venlafaxine [Effexor] 75 mg PO TID 03/22/16 [History] Aspirin Enteric Coated [Aspirin EC] 81 mg PO DAILY #30 tablet. 03/25/16 [Rx] cloNIDine HCl [CloNIDine HCl] 1 tab PO BID 06/24/17 [History] Cetirizine HCl 10 mg PO DAILY 06/25/17 [History] HYDROcodone/Acet 5/325 mg [[place] 5-325 mg] 1 tab PO Q6H PRN 06/25/17 [History] Losartan Potassium [Cozaar] 50 mg PO DAILY 06/25/17 [History] Ferrous Sulfate 325 mg PO BIDWM #60 tablet 06/27/17 [Rx] Omeprazole [PriLOSEC] 40 mg PO DAILY #30 cap 06/27/17 [Rx] levoFLOXacin [Levaquin] 500 mg PO DAILY #3 tablet 06/27/17 [Rx] Allergies/Adverse Reactions: 3 Allergy/AdvReac Type Severity Reaction Status Date / Time ETHAN Inhibitors Allergy Cough Verified 03/22/16 16:25 Certification: Further, I certify that my clinical findings support that this patient is homebound (i.e. absences from home require considerable and taxing effort and are for medical reasons or yazdanism services or infrequently or short duration when for other reasons) because: Homebound Reason: Leaving home requires considerable and taxing effort due to condition, Severity of cardiac or pulmonary status limits activity tolerance Attestation: My signature below is to certify that this patient is under my care and that I, or nurse practitioner, or a physician's internal medicine physician assistant working with me, has a face-to -face encounter with this patient.
[2017-06-27 11:34] VITALS: BP 146/82
[2017-06-27 12:49] LABS: Kappa Qnt Free Light Chains 2.9 mg/dL (0.33-1.94); Lambda Qnt Free Light Chains 2.19 mg/dL (0.57-2.63)
[2017-06-28 15:36] LABS: Alpha 2 Globulin (PEP) 0.86 g/dL (0.48-1.05)
[2017-06-29 01:12] LABS: Urine Collection Duration 24 hr; Urine Collection Volume 2300 mL
[2017-06-29 09:49] LABS: IFE Reflexed IFE Done; Immunoglobulin A 240 mg/dL (68-408); Immunoglobulin G 494 mg/dL (768-1632); Immunoglobulin M 32 mg/dL (35-263)
== END 2017-06-27 15:35 | disposition home health service (06) ==
LOC: 2NENU 13:37 → INTOOBSV 13:37
PROVIDERS: ADMIT Internal Medicine Cardiovascular Disease; ATTEND Internal Medicine

== ENCOUNTER 2018-03-07 20:30 | Inpatient (IN) ==
[2018-03-07] MEDS ORDERED: Naloxone 0.4 MG/ML INJ IVP PRN (22:58)
--- NOTE | 2018-03-07 23:00 | Internal Med History&Physical ---
<Ruslan Padilla Tata - Last Filed: 03/08/18 18:42> Date of Encounter: 03/08/18 Time of Encounter: 04:00 Internal Medicine - H&P: HPI History of present illness: Ms. Rubin is a 77 year old female Internal Medicine - H&P: Meds Allopurinol [Zyloprim 100 MG] 200 mg PO DAILY 05/13/15 [History] amLODIPine [Norvasc] 5 mg PO DAILY 05/13/15 [History] GlipiZIDE XL (24 HR) [Glucotrol XL] 2.5 mg PO DAILY 03/22/16 [History] Lovastatin [Mevacor] 40 mg PO HS 03/22/16 [History] [place]-3/Dha/Epa/Fish Oil [Fish Oil 1,000 mg Softgel] 1 cap PO DAILY 03/22/16 [History] Venlafaxine [Effexor] 75 mg PO BID 03/22/16 [History] Aspirin Enteric Coated [Aspirin EC] 81 mg PO DAILY #30 tablet.dr 03/25/16 [Rx] cloNIDine HCl [CloNIDine HCl] 0.1 mg PO BID 06/24/17 [History] Cetirizine HCl 10 mg PO DAILY 06/25/17 [History] HYDROcodone/Acet 5/325 mg [[place] 5-325 mg] 1 tab PO Q8H PRN 06/25/17 [History] Ferrous Sulfate 325 mg PO BIDWM #60 tablet 06/27/17 [Rx] Omeprazole [PriLOSEC] 40 mg PO DAILY #30 cap 06/27/17 [Rx] Cholecalciferol (D-3) [Vitamin D] 1,000 unit PO DAILY 03/08/18 [History] Losartan [Cozaar] 25 mg PO DAILY 03/08/18 [History] Allergy/AdvReac Type Severity Reaction Status Date / Time No Known Allergies Allergy Verified 03/08/18 15:00 All Systems PM: A 10-system review of systems was performed and is negative for pertinent findings except as documented above in the HPI. - Constitutional Vitals: Temp Pulse Resp BP Pulse Ox 99.1 F 82 17 188/99 95 03/08/18 07:21 03/08/18 07:21 03/08/18 07:21 03/08/18 07:21 03/08/18 07:21 Internal Med - H&P Results - Labs CBC & Chem 7: 03/08/18 10:42 03/08/18 10:42 Labs: Short CBC 03/07/18 Range/Units 23:08 WBC 8.0 (4.3-11.1) K/mcL Hgb 8.2 L (11.5-15.4) g/dL Hct 24.0 L (35.3-44.9) % Plt Count 69 L (140-400) K/mcL Neutrophils # 4.3 (1.6-8.9) K/mcL BMP 03/07/18 23:08 Sodium 145 Potassium 4.6 Chloride 105 Carbon Dioxide 24 BUN 58 H Creatinine 4.12 H Glucose 106 H Calcium 8.4 L - Impressions ITS Impressions Head CT 03/08/18 03:00 IMPRESSION: No acute intracranial abnormality. Extensive chronic white matter microangiopathic ischemic changes. D/ / Bud Young MD / Bud Young MD Interpreting Provider: Bud Young MD - Time Spent With Patient Total time spent is greater than 50% in coordination of care (as documented) at patient's floor/unit and/or counseling patient: - Attending Attestation Patient seen and examined. Chart reviewed. Case discussed with resident. Agree with assessment and plan. We will admit patient for acute on chronic kidney injury and possible UTI. Given patient's history of installment agent headache associated with nausea and vomiting, we will obtain CT scan of the head. Continue with ceftriaxone. Nephrology consult for the morning. <Patel Villegas - Last Filed: 03/08/18 19:22> Time of Encounter: 23:00 Internal Medicine - H&P: HPI Chief complaint: Generalized weakness History of present illness: Susannah Rubin is an 82 year old female with a PMH of HTN, DM, gout, depression, and knee replacement who presented as a transfer from [facility] to [facility] on 03/07/18. Patient initially presented to [facility] for headache and body aches. Patient also complained of progressive weakness of several days duration. Known history of stage IV CKD; seen by nephrology in Telephone. Patient is supposed to undergo dialysis training, and possibly start dialysis in the near future. Patient still produces urine with incontinence. Patient reports a headache, and feels like she has a fluid due to body aches. Patient denied having any other symptoms. No exacerbating or relieving factors. Vitals on presentation to [facility] were as follows: Blood pressure 145/70, temperature 97.9, pulse 90 bpm, respiratory rate 20/m, O2 saturation 95% on room air. Labs demonstrated a hemoglobin of 8.8. Platelets were low at 75. Creatinine was elevated at 4.41. Alkaline phosphatase elevated at 134. Influenza a and B were both negative. Patient was seen and examined at bedside; patient reports that she feels generalized weakness, and complains of a headache that has been present since her arrival. Patient describes headache as bilateral, located in's temporal area. Denies having any associated visual changes or lightheadedness. Pain is not exacerbated by bright lights. She denies having any fever, chills, nausea, vomiting, diarrhea, numbness, tingling, or paresthesias. No further complaints at this time. Past Med Surg Social Fam HX - Past Medical History Medical history: diabetes, hyperlipidemia, hypertension, renal disease Additional medical history: CKD. PELVIC MASS. ANEMIA. CATARACTS. GOUT Psychiatric history: depression - Past Surgical History Surgical History: appendectomy, cholecystectomy, hysterectomy, knee replacement, orthopedic, other Additional surgical history: cataract surg bilateral eyes - Social History Smoking Status: Never smoker Smokeless Tobacco Status: No Alcohol use: none Drug use: none - Family History Mother Living Status: Hx Family Endocrine Disorder: Yes (DM) Father Living Status: All Systems PM: A 10-system review of systems was performed and is negative for pertinent findings except as documented above in the HPI. - Constitutional Vitals: Temp Pulse Resp BP Pulse Ox 98.9 F 88 16 161/91 96 03/07/18 22:41 03/07/18 22:41 03/07/18 22:41 03/07/18 22:41 03/07/18 22:41 Exam: General: No acute distress, A&Ox3 Head: atraumatic, normocephalic ENT: Mucosal membranes moist Neck: supple, trachea midline Respiratory: CTAB; no wheezes, rales, rhonchi Cardiovascular: RRR, S1 and S2, no murmurs, rubs or gallops Abdomen: Soft, nontender and nondistended with positive bowel sounds Extremities: No clubbing or cyanosis Skin: dry, intact Internal Med - H&P Results - Labs CBC & Chem 7: 03/08/18 10:42 03/08/18 10:42 - Assessment and plan (1) Acute on chronic kidney failure Current Visit: Yes Status: Acute Assessment and plan: Unknown etiology at this time - Creatinine is 4.12; Previous Cr per chart review on 11/20 was 2.97 - Patient sees Dr. Ramirez - Patient is in the process of hemodialysis education - Patient denies having any new medications Plan: - Consult nephrology - IV fluid hydration at 100 mils per hour - Retroperitoneal ultrasound to rule out obstructive etiology Qualifiers: Qualified Code(s): N17.9 - Acute kidney failure, unspecified; N18.9 - Chronic kidney disease, unspecified (2) UTI (urinary tract infection) Current Visit: No Status: Acute Assessment and plan: Initial UA demonstrates evidence of UTI - Does not endorse any new urinary symptoms - Repeat UA with reflex CX ordered - Rocephin 1g daily Qualifiers: Urinary tract infection type: acute cystitis Hematuria presence: without hematuria Qualified Code(s): N30.00 - Acute cystitis without hematuria (3) Headache Current Visit: Yes Status: Acute Assessment and plan: Patient reported presenting to the hospital with new onset headache - She states that her pain is constant, bilateral temporal region - Not affected by light or sound Plan: - CT scan of the head - Acetaminophen PRN Qualifiers: Qualified Code(s): R51 - Headache (4) Anemia Current Visit: No Status: Chronic Assessment and plan: - Unknown etiology at this time; possibly due to chronic disease - No bleeding source is suspected at this time - Repeat a.m. labs Qualifiers: Anemia type: due to chronic kidney disease Chronic kidney disease stage: stage 4 (severe) Qualified Code(s): N18.4 - Chronic kidney disease, stage 4 (severe); D63.1 - Anemia in chronic kidney disease (5) HTN (hypertension) Current Visit: Yes Status: Acute Assessment and plan: - Patient has a known history of hypertension - Last blood pressure was 161/91 - Continue home medications Qualifiers: Qualified Code(s): I10 - Essential (primary) hypertension (6) Diabetes mellitus Current Visit: No Status: Acute Assessment and plan: - Elevated glucose 106 Qualifiers: Diabetes mellitus type: type 2 Diabetes mellitus terminal supervisor insulin use: unspecified senior living insulin use status Diabetes mellitus complication status: with unspecified complications Qualified Code(s): E11.8 - Type 2 diabetes mellitus with unspecified complications - Time Spent With Patient Total time spent is greater than 50% in coordination of care (as documented) at patient's floor/unit and/or counseling patient: 25 - 35 minutes
[2018-03-07 23:23] LABS: Basophils % 0.3 %; Eosinophils # 0.2 K/mcL (0.0-0.6); Eosinophils % 2.9 %; Hemoglobin 8.2 g/dL (11.5-15.4); Immature Granulocytes % 0.4 % (0-4); Lymphocytes # 2.7 K/mcL (0.6-4.6); Lymphocytes % 33.9 %; Mean Corpuscular HGB Conc 34.2 g/dL (31.6-35.5); Mean Corpuscular Hemoglobin 30.3 pg (28.0-33.3); Mean Corpuscular Volume 88.6 fL (83.0-100.0); Mean Platelet Volume 9.3 fL (9.4-12.4); Monocytes # 0.7 K/mcL (0.0-1.3); Neutrophils # 4.3 K/mcL (1.6-8.9); Red Blood Count 2.71 M/mcL (3.82-4.97); Red Cell Distribution Width 13.4 % (11.5-14.5); Segmented Neutrophils % 53.5 %
[2018-03-07 23:24] LABS: Platelet Count 69 K/mcL (140-400)
[2018-03-07 23:31] LABS: INR 1.1; Prothrombin Time 12.9 Seconds (9.4-12.1)
[2018-03-07 23:41] LABS: Calcium 8.4 mg/dL (8.6-10.3); Potassium 4.6 mEq/L (3.5-5.1)
[2018-03-08] MEDS: 0.9 % Sodium Chloride 1,000 ML IVC SCH ×2 (04:18→21:06)
[2018-03-08] MEDS ORDERED: Acetaminophen 325 MG TABLET PO SCH (06:00)
[2018-03-08 10:12] LABS: Bilirubin,Urine Negative (Negative); Blood,Urine Small (Negative); Color,Urine Yellow (Yellow); Glucose,Urine (UA) 100 mg/dL (Normal); Ketones,Urine Negative (Negative); Leukocyte Esterase,Urine Small (Negative); Nitrite,Urine Negative (Negative); Protein,Urine >=1000 mg/dL (Neg-Trace); Specific Gravity,Urine 1.017 (1.010-1.025); Urobilinogen,Urine Normal (Normal)
[2018-03-08] MEDS: cefTRIAXone 1,000 MG in Water for inj. (sterile) 20 ML 10 ML IVP SCH (10:13)
[2018-03-08 10:15] LABS: Bacteria,Urine Moderate per hpf (None-Few); Hyaline Casts,Urine None Seen per lpf (None-Few); RBC,Urine 0-3 per hpf (0-3); Squamous Epithelial Cell,Urine Moderate per lpf (None-Few); WBC,Urine TNTC per hpf (0-3)
[2018-03-08 10:16] LABS: Clarity,Urine Slightly Hazy (Clear)
--- NOTE | 2018-03-08 10:48 | Nephrology Consult Note ---
Date of Encounter: 03/08/18 Time of Encounter: 09:02 Assessment and Plan (1) Renal failure (ARF), acute on chronic Current Visit: No Status: Chronic Acute on chronic kidney injury. She has known CKD IV for which she follows with felt washing machine tender Dr. Mcdermott. They have had discussions that she may have to start dialysis in the near future. -Etiology may be diabetic nephropathy, interstitial nephritis. Patient also has symptomatic UTI. -creatinine 4.12 (baseline 2.9-3) -GFR 11 -BUN 58 -I&O: 490/1000 good urine output -urinalysis: >1000 protein, leukocyte esterase positive, WBC, no casts seen Workup thus far 06/25/2017: -urine total protein 24 hour 3427, urine albumin (PEP) detected -total protein 5.6, serum total protein 5.4, Alpha 1 globulins 0.43, alpha 2 globulin 0.86, beta globulins 0.8, gamma globulins 0.5 -IgG 498, IgA 240, IgM 32, free [place] LC Quant 2.9, free lambda LC Quant 2.19, free [place]/lambda ratio 1.32 Plan: -retroperitoneal ultrasound pending -will order for urine eosinophils -will review medical records to see what workup has already been done in terms of determining the etiology of her worsened creatinine -renal dose medications -avoid nephrotoxic agents -monitor I&O -monitor serum creatinine Qualifiers: Acute renal failure type: unspecified Chronic kidney disease stage: stage 4 (severe) Qualified Code(s): N17.9 - Acute kidney failure, unspecified; N18.4 - Chronic kidney disease, stage 4 (severe) (2) Anemia Current Visit: No Status: Chronic Anemia likely both iron deficiency and chronic disease in setting of CKD, CHF, DM hemoglobin 8.2 (she is at baseline) MCV normocytic 06/25/2017: iron 17, 6% saturation, transferrin 182, ferritin 175 no obvious active bleeding -May benefit from iron supplementation Qualifiers: Anemia type: due to chronic kidney disease Chronic kidney disease stage: stage 4 (severe) Qualified Code(s): N18.4 - Chronic kidney disease, stage 4 (severe); D63.1 - Anemia in chronic kidney disease (3) Hypertension Current Visit: No Status: Chronic History of hypertension with medications including losartan, clonidine, amlodipine Qualifiers: Hypertension type: essential hypertension Qualified Code(s): I10 - Essential (primary) hypertension (4) UTI (urinary tract infection) Current Visit: No Status: Acute She is frequent urinary tract infections with her last one being last week where she finished taking Bactrim. She still reports feeling like she has a urinary tract infection with dysuria and foul-smelling urine. She denies increased frequency and hematuria. -urinalysis: >1000 protein, leukocyte esterase positive, WBC, no casts seen -urine culture pending -patient receiving Rocephin Qualifiers: Urinary tract infection type: acute cystitis Hematuria presence: without hematuria Qualified Code(s): N30.00 - Acute cystitis without hematuria History of Present Illness - Reason for Consult Consult date: 03/08/18 Acute Kidney Injury, Chronic Kidney Disease Requesting physician: Patel Villegas - Chief Complaint Generalized weakness - History of Present Illness Ms. Rubin is a 77-year-old female with past medical history of COPD stage IV, hypertension, hyperlipidemia, diabetes, CHF who presented to [facility] complaining of body aches and headache. Nephrology was consulted due to acute on chronic kidney disease. Upon my examination of the patient she stated that her felt washing machine tender is Dr. Mcdermott and that her appointment with him would have been today. They have been discussing the possibility of starting dialysis in the near future her creatinine did not improve. She stated that she is still producing urine and that she frequently gets urinary tract infections and believes that she has one now. She has dysuria, foul-smelling urine. She stated that she was just treated and finished taking Bactrim last week for a UTI. She typically gets Bactrim for her UTIs. She has subjective fever and chills. Denied change in urinary frequency. She denies nausea, vomiting, abdominal pain, chest pain, shortness of breath. Past Med Surg Social Fam HX - Past Medical History Attestation: Yes The following information was validated with the patient. Source: patient Medical history: diabetes, hyperlipidemia, hypertension, renal disease Additional medical history: CKD. PELVIC MASS. ANEMIA. CATARACTS. GOUT Psychiatric history: depression - Past Surgical History Surgical History: appendectomy, cholecystectomy, hysterectomy, knee replacement, orthopedic, other Additional surgical history: cataract surg bilateral eyes - Social History Smoking Status: Never smoker Smokeless Tobacco Status: No Alcohol use: none Drug use: none - Family History Mother Living Status: Hx Family Endocrine Disorder: Yes (DM) Hx Family Medical Disorders: Yes (Diabetes) Father Living Status: Medications and Allergies Allopurinol [Zyloprim 100 MG] 200 mg PO DAILY 05/13/15 [History] Cholecalciferol (Vitamin D3) [Vitamin D3] 10,000 unit PO DAILY 05/13/15 [Hi story] amLODIPine [Norvasc] 5 mg PO DAILY 05/13/15 [History] GlipiZIDE XL (24 HR) [Glucotrol XL] 2.5 mg PO DAILY 03/22/16 [History] Lovastatin [Mevacor] 40 mg PO HS 03/22/16 [History] Levels-3/Dha/Epa/Fish Oil [Fish Oil 1,000 mg Softgel] 1 cap PO DAILY 03/22/16 [History] Venlafaxine [Effexor] 75 mg PO TID 03/22/16 [History] Aspirin Enteric Coated [Aspirin EC] 81 mg PO DAILY #30 tablet. 03/25/16 [Rx] cloNIDine HCl [CloNIDine HCl] 0.1 mg PO BID 06/24/17 [History] Cetirizine HCl 10 mg PO DAILY 06/25/17 [History] HYDROcodone/Acet 5/325 mg [[place] 5-325 mg] 1 tab PO Q8H PRN 06/25/17 [History] Ferrous Sulfate 325 mg PO BIDWM #60 tablet 06/27/17 [Rx] Omeprazole [PriLOSEC] 40 mg PO DAILY #30 cap 06/27/17 [Rx] Losartan [Cozaar] 25 mg PO DAILY 03/08/18 [History] cloNIDine HCl [CloNIDine HCl] 03/08/18 [History] Allergy/AdvReac Type Severity Reaction Status Date / Time No Known Allergies Allergy Verified 09/07/17 07:58 Review of Systems Constitutional: chills, fever(s), headache(s), malaise, no weakness Nose, mouth and throat: no abnormal hearing, no dysphagia Cardiovascular: no chest pain, no edema, no lightheadedness, no palpitations Respiratory: no cough, no dyspnea, no wheezing Gastrointestinal: no abdominal pain, no diarrhea, no hematochezia, no melena, no nausea, no vomiting Genitourinary Female: dysuria, no hematuria, no urinary frequency Musculoskeletal: myalgias Integumentary: no erythema, no lesions Neurological: headache(s), no dizziness, no loss of vision, no weakness Hematologic/Lymphatic: no easy bleeding, no easy bruising Exam - Vital Signs Vital signs: Initial Vital Signs Temp Pulse Resp BP Pulse Ox 98.9 F 88 16 161/91 96 03/07/18 22:41 03/07/18 22:41 03/07/18 22:41 03/07/18 22:41 03/07/18 22:41 Vital Signs - Last 8 Hours Temp Pulse Resp BP Pulse Ox 03/08/18 07:21 99.1 F 82 17 188/99 95 03/08/18 04:32 99.6 F 86 16 187/94 92 Intake and Output 03/07/18 03/08/18 03/08/18 23:59 07:59 15:59 Intake Total 480 / 480 Output Total 1000 / 1000 Balance -1000 / -1000 480 / 480 Intake: Oral 480 / 480 Output: Catheter 1000 / 1000 Other: Meal Breakfast Percent of Meal Consumed 100% Weight 141.4 kg Blood Glucose* 121 - General Appearance General appearance: well-developed, well-nourished, appears started age EENT: mucous membranes moist Neck: supple Cardiology: no murmurs, no rub, no edema, regular rate, regular rhythm Gastrointestinal: normoactive bowel sounds, no tenderness, no guarding, no masses Integumentary: no rash, warm and dry, chronic venous stasis (Right ankle) Neurologic: no focal deficit, alert and oriented x3, CN 3-12 intact Musculoskeletal: no erythema, no clubbing Psychiatric: mood/affect appropriate, cooperative Results - Lab Results 03/08/18 10:42 03/08/18 10:42 Most recent lab results Calcium 8.4 mg/dL (8.6-10.3) L 03/07/18 23:08 Consult Discharge Plan - Plan Referrals: Bill Candelaria MD [Primary Care Provider] -
[2018-03-08 10:54] LABS: Mean Corpuscular HGB Conc 33.2 g/dL (31.6-35.5); Mean Corpuscular Hemoglobin 29.7 pg (28.0-33.3); Monocytes % 7.7 %
[2018-03-08 10:55] LABS: Hematocrit 24.4 % (35.3-44.9); Hemoglobin 8.1 g/dL (11.5-15.4); Immature Platelets 1.4 % (1.1-6.1); Mean Corpuscular Volume 89.4 fL (83.0-100.0); Mean Platelet Volume 9.1 fL (9.4-12.4); Red Blood Count 2.73 M/mcL (3.82-4.97); Red Cell Distribution Width 13.7 % (11.5-14.5); Segmented Neutrophils % 55.1 %
--- NOTE | 2018-03-08 10:55 | Internal Med Progress Note ---
Hospitalist Progress Note - Encounter Date of Encounter: 03/08/18 Time of Encounter: 11:00 - Subjective Interval History: Patient with acute on chronic renal failure without much improvement in renal function this morning on IV fluids. Nephrology consulted for recommendations - Exam Vitals: Temp Pulse Resp BP Pulse Ox 99.1 F 82 17 188/99 95 03/08/18 07:21 03/08/18 07:21 03/08/18 07:21 03/08/18 07:21 03/08/18 07:21 Exam: Gen.: Nonacute distress, alert and oriented 3 ENT: Mucosal membranes moist Respiratory: Lungs are clear to auscultation bilaterally without any wheezing rhonchi or rales Cardiovascular: Normal S1 and S2 regular rate rhythm no murmurs rubs or gallops Abdomen: Soft, nontender and nondistended with positive bowel sounds Extremities: No lower extremity edema Skin: pale - Assessment and Plan (1) Renal failure (ARF), acute on chronic Current Visit: No Status: Chronic Assessment and Plan: Patient with a creatinine of 4.12 on admission; baseline approximately 2.0 Will continue IV fluids started on admission Nephrology consulted and appreciate recommendations (2) UTI (urinary tract infection) Current Visit: No Status: Acute Assessment and Plan: Patient with a positive urinalysis at outlying facility; repeat uri nalysis/cultures pending Will continue IV ceftriaxone started on admission (3) Benign hypertension with chronic kidney disease, stage III Current Visit: No Status: Acute Assessment and Plan: Controlled; continue clonidine, losartan and amlodipine. (4) Type 2 diabetes mellitus with diabetic chronic kidney disease Current Visit: No Status: Acute Assessment and Plan: Will hold home dose of sulfonylurea and cover with low-dose sliding scale insulin. (5) Anemia Current Visit: No Status: Chronic Assessment and Plan: Stable; continue to monitor (6) DVT prophylaxis Current Visit: No Status: Acute Assessment and Plan: Heparin subcutaneous - Time Spent with Patient Total time spent is greater than 50% in coordination of care (as documented) at patient's floor/unit and/or counseling patient: Internal Medicine: Result - Labs CBC & Chem 7: 03/08/18 10:42 03/08/18 10:42 Labs: Short CBC 03/07/18 Range/Units 23:08 WBC 8.0 (4.3-11.1) K/mcL Hgb 8.2 L (11.5-15.4) g/dL Hct 24.0 L (35.3-44.9) % Plt Count 69 L (140-400) K/mcL Neutrophils # 4.3 (1.6-8.9) K/mcL BMP 03/07/18 23:08 Sodium 145 Potassium 4.6 Chloride 105 Carbon Dioxide 24 BUN 58 H Creatinine 4.12 H Glucose 106 H Calcium 8.4 L Urine 03/08/18 Range/Units 09:40 Urine Color Yellow (Yellow) Urine Clarity Slightly Hazy (Clear) Urine pH 6.0 (5.0-8.0) pH Units Ur Specific [place] 1.017 (1.010-1.025) Urine Protein >=1000 H (Neg-Trace) mg/dL Urine Glucose (UA) 100 H (Normal) mg/dL - ABG Interpretation ABG results: PT/INR, D-dimer PT 12.9 Seconds (9.4-12.1) H 03/07/18 23:08 - Impressions Impressions Head CT 03/08/18 03:00 IMPRESSION: No acute intracranial abnormality. Extensive chronic white matter microangiopathic ischemic changes. D/ / 03/08/2018 07:38:28 Bud Young MD / Shelby Nguyen Interpreting Provider: Bud Young MD Consult Discharge Plan - Plan Referrals: Bill Candelaria MD [Primary Care Provider] - (1) Renal failure (ARF), acute on chronic Qualifiers: Acute renal failure type: unspecified Chronic kidney disease stage: stage 4 (severe) Qualified Code(s): N17.9 - Acute kidney failure, unspecified; N18.4 - Chronic kidney disease, stage 4 (severe) (2) UTI (urinary tract infection) Qualifiers: Urinary tract infection type: acute cystitis Hematuria presence: without hematuria Qualified Code(s): N30.00 - Acute cystitis without hematuria (4) Type 2 diabetes mellitus with diabetic chronic kidney disease Qualifiers: Diabetes mellitus chcf insulin use: with chcf use Chronic kidney disease stage: stage 3 (moderate) Qualified Code(s): E11.22 - Type 2 diabetes mellitus with diabetic chronic kidney disease; N18.3 - Chronic kidney disease, stage 3 (moderate); Z79.4 - skilled nursing (current) use of insulin (5) Anemia Qualifiers: Anemia type: due to chronic kidney disease Chronic kidney disease stage: stage 4 (severe) Qualified Code(s): N18.4 - Chronic kidney disease, stage 4 (severe); D63.1 - Anemia in chronic kidney disease
[2018-03-08 10:56] LABS: Basophils % 0.3 %; Eosinophils # 0.2 K/mcL (0.0-0.6); Eosinophils % 2.9 %; Immature Granulocytes % 0.3 % (0-4); Lymphocytes # 2.6 K/mcL (0.6-4.6); Lymphocytes % 33.7 %; Monocytes # 0.6 K/mcL (0.0-1.3); Neutrophils # 4.2 K/mcL (1.6-8.9)
[2018-03-08 11:00] LABS: Platelet Count 70 K/mcL (140-400)
[2018-03-08 11:13] LABS: Calcium 8.1 mg/dL (8.6-10.3); Potassium 4.7 mEq/L (3.5-5.1)
[2018-03-08] MEDS: cloNIDine HCl 0.1 MG TABLET PO SCH ×2 (17:13→21:09)
[2018-03-08] MEDS: *HR* Heparin 5,000 UNIT/ML VIAL SQ SCH (17:13)
[2018-03-09] MEDS ORDERED: cloNIDine HCl 0.1 MG TABLET PO ONE (00:52)
[2018-03-09 05:55] LABS: Calcium 8.7 mg/dL (8.6-10.3); Potassium 4.8 mEq/L (3.5-5.1)
[2018-03-09] MEDS: *HR* Heparin 5,000 UNIT/ML VIAL SQ SCH ×2 (06:11→18:29)
[2018-03-09] MEDS ORDERED: 0.9 % Sodium Chloride 250 ML IVC PRN (07:12)
[2018-03-09] MEDS ORDERED: 0.9 % Sodium Chloride 1,000 ML PRIME SCH (07:15)
[2018-03-09] MEDS ORDERED: 0.9 % Sodium Chloride 1,000 ML ONE (08:13)
[2018-03-09 08:37] LABS: Hepatitis B Surface Antibody 0.04 mIU/mL; Hepatitis B Surface Antigen Nonreactive (Nonreactive)
--- NOTE | 2018-03-09 09:30 | Nephrology Progress Note ---
Date of Encounter: 03/09/18 Time of Encounter: 09:29 - Assessment and Plan (1) Renal failure (ARF), acute on chronic Current Visit: No Status: Chronic Acute on chronic kidney injury. She has known CKD IV for which she follows with sample puller Dr. Mcdermott. They have had discussions that she may have to start dialysis in the near future. -Etiology may be diabetic nephropathy, interstitial nephritis. Patient also has symptomatic UTI. -creatinine 4.3, admission 4.12 (baseline 2.9-3) -GFR 10 -BUN 58 -I&O: 1610/2900 good urine output -urinalysis: >1000 protein, leukocyte esterase positive, WBC, no casts seen -retroperitoneal ultrasound: multiple bilateral renal cyst, no hydronephrosis. -Negative urine eosinophils Workup thus far 06/25/2017: -urine total protein 24 hour 3427, urine albumin (PEP) detected -total protein 5.6, serum total protein 5.4, Alpha 1 globulins 0.43, alpha 2 globulin 0.86, beta globulins 0.8, gamma globulins 0.5 -IgG 498, IgA 240, IgM 32, free [place] LC Quant 2.9, free lambda LC Quant 2.19, free [place]/lambda ratio 1.32 Plan: -patient's renal function has not improved but has worsened. We will plan for initiation of dialysis today. IR is consulted for placement of a permit cath today as she is likely going to need scheduled dialysis -renal dose medications -avoid nephrotoxic agents -monitor I&O -monitor serum creatinine Qualifiers: Acute renal failure type: unspecified Chronic kidney disease stage: stage 4 (severe) Qualified Code(s): N17.9 - Acute kidney failure, unspecified; N18.4 - Chronic kidney disease, stage 4 (severe) (2) Anemia Current Visit: No Status: Chronic Anemia likely both iron deficiency and chronic disease in setting of CKD, CHF, DM hemoglobin 8.2 (she is at baseline) MCV normocytic 06/25/2017: iron 17, 6% saturation, transferrin 182, ferritin 175 no obvious active bleeding -May benefit from iron supplementation Qualifiers: Anemia type: due to chronic kidney disease Chronic kidney disease stage: stage 4 (severe) Qualified Code(s): N18.4 - Chronic kidney disease, stage 4 (severe); D63.1 - Anemia in chronic kidney disease (3) Hypertension Current Visit: No Status: Chronic History of hypertension with medications including losartan, clonidine, amlodipine Qualifiers: Hypertension type: essential hypertension Qualified Code(s): I10 - Essential (primary) hypertension (4) UTI (urinary tract infection) Current Visit: No Status: Acute She is frequent urinary tract infections with her last one being last week where she finished taking Bactrim. She still reports feeling like she has a urinary tract infection with dysuria and foul-smelling urine. She denies increased frequency and hematuria. -urinalysis: >1000 protein, leukocyte esterase positive, WBC, no casts seen -urine culture pending -patient receiving Rocephin Qualifiers: Urinary tract infection type: acute cystitis Hematuria presence: without hematuria Qualified Code(s): N30.00 - Acute cystitis without hematuria Subjective Principal diagnosis: Acute chronic renal failure Interval history: Patient seen and examined at bedside. She is alert and oriented times 3. She denies fever, chills, nausea, vomiting, abdominal pain, dysuria, pelvic pressure. She has no complaints at this time. Objective - Vital Signs Vital signs: Vital Signs Temp Pulse Resp BP Pulse Ox 03/09/18 07:41 97.9 F 79 18 179/98 95 03/09/18 04:02 98.6 F 79 20 164/82 94 03/08/18 23:40 98.5 F 78 18 172/91 95 03/08/18 19:44 98.9 F 82 18 173/87 97 03/08/18 16:46 98.8 F 85 18 176/88 96 03/08/18 11:18 97.4 F L 90 18 198/76 94 Intake and Output 03/08/18 03/09/18 03/09/18 23:59 07:59 15:59 Output Total 1450 / 1450 990 / 990 Balance -1450 / -1450 -990 / -990 Output: Catheter 1450 / 1450 990 / 990 Other: Weight 145 kg Blood Glucose* 197 125 Patient Weight 03/09/18 23:59 Weight 145 kg - General Appearance General appearance: Present: well-developed, well-nourished, appears started age EENT: Present: mucous membranes dry. Absent: scleral icterus Neck: Present: supple Respiratory: Present: clear Cardiology: Present: no rub, edema (mild bilateral), regular rate, regular rhythm Gastrointestinal: Present: normoactive bowel sounds, no tenderness, no guarding Integumentary: Present: warm and dry, chronic venous stasis (Right ankle) Neurologic: Present: alert and oriented x3, CN 3-12 intact Musculoskeletal: Present: no erythema, no cyanosis Psychiatric: Present: mood/affect appropriate, cooperative - Lab 03/08/18 10:42 03/09/18 04:54 Most recent lab results Calcium 8.7 mg/dL (8.6-10.3) 03/09/18 04:54 Consult Discharge Plan - Plan Referrals: Bill Candelaria MD [Primary Care Provider] -
[2018-03-09] MEDS ORDERED: Heparin 1,000 UNITS/500 mL 500 ML ONE (10:19)
[2018-03-09] MEDS: cefTRIAXone 1,000 MG in Water for inj. (sterile) 20 ML 10 ML IVP SCH (10:48)
[2018-03-09] MEDS: cloNIDine HCl 0.1 MG TABLET PO SCH ×2 (10:48→21:18)
[2018-03-09] MEDS ORDERED: *HR* FentaNYL (PF) 100 MCG/2 ML VIAL IVP ONE (11:06)
[2018-03-09] MEDS ORDERED: *HR* Midazolam HCl 2 MG/2 ML VIAL IVP ONE (11:06)
[2018-03-09] MEDS ORDERED: *HR* Midazolam HCl 2 MG/2 ML VIAL ONE (11:18)
[2018-03-09] MEDS ORDERED: *HR* FentaNYL (PF) 100 MCG/2 ML VIAL ONE (11:18)
[2018-03-09] MEDS ORDERED: 0.9 % Sodium Chloride 500 ML ONE (11:26)
[2018-03-09] MEDS ORDERED: *HR* Heparin 5,000 UNIT/ML VIAL ONE (11:32)
--- NOTE | 2018-03-09 12:37 | Pre-Sedation Evaluation ---
Pre-sedation evaluation - Pre-sedation checklist Date of procedure: 03/09/18 Procedure: Permacath Recent Vitals: Last Vital Signs Temp 98.7 F 03/09/18 10:36 Pulse 89 03/09/18 11:47 Resp 14 03/09/18 11:47 BP 194/105 03/09/18 11:47 Pulse Ox 98 03/09/18 11:47 H&P (including ROS) documented in medical record: Yes Previous reaction to sedatives/anesthetics: Yes; explain in comment Dietary Status: NPO after Midnight Airway Assessment: Patient can open mouth completely, TMJ function normal, Micrognathia (under-bite, receding chin) absent, Neck with adequate range of motion ASA Classification *see protocol: CLASS II-Mild systemic disease Plan of Care: Pt appropriate candidate for procedure/moderate/conscious sedation, Risks/benefits of procedure/sedation discussed w/ patient/family, If not NPO; Risk of intake outweiged by necessity to perform procedure
--- NOTE | 2018-03-09 12:39 | IR Procedure Note ---
Date of procedure: 03/09/18 Consent Obtained: Verbal consent, Written consent Timeout: Correct patient and procedure verified, Correct site verified, Time out performed, Skin prep completed Local anesthetic: Lidocaine 1% Indications: ESRD Procedure Performed: permcath placement Was there an hygiene assistant present: No Estimated blood loss (cc): 5 Complications: None; Tolerated procedure well Post Procedure Treatment Plan: catheter okay to use; bedrest x 1 hour Specimen: none
[2018-03-09] MEDS ORDERED: Dextrose Gel 15 GM/37.5 ML TUBE PO PRN ×2 (13:06)
[2018-03-09] MEDS ORDERED: D5% in Water 1,000 ML IVC PRN (13:06)
[2018-03-09] MEDS ORDERED: *HR* Dextrose 50 % in Water (Syg) 50 ML SYRINGE IVP PRN (13:06)
[2018-03-09] MEDS: amLODIPine 5 MG TABLET PO SCH (13:38)
[2018-03-09] MEDS ORDERED: *HR* Heparin 10,000 UNIT/10 ML VIAL IV PRN (14:08)
[2018-03-09] MEDS: Insulin LISPRO 300 UNITS/3 ML VIAL SQ SCH ×2 (18:29→21:14)
--- NOTE | 2018-03-09 19:42 | Internal Med Progress Note ---
Hospitalist Progress Note - Encounter Date of Encounter: 03/09/18 Time of Encounter: 11:00 - Subjective Interval History: Patient with acute on chronic renal failure without much improvement in renal function this morning on IV fluids. Nephrology with recommendations for permacath which was placed today for initiating hemodialysis - Exam Vitals: Temp Pulse Resp BP Pulse Ox 99.3 F 88 18 171/96 97 03/09/18 17:12 03/09/18 17:12 03/09/18 17:12 03/09/18 17:12 03/09/18 17:12 Exam: Gen.: Nonacute distress, alert and oriented 3 ENT: Mucosal membranes moist Respiratory: Lungs are clear to auscultation bilaterally without any wheezing rhonchi or rales Cardiovascular: Normal S1 and S2 regular rate rhythm no murmurs rubs or gallops Abdomen: Soft, nontender and nondistended with positive bowel sounds Extremities: No lower extremity edema Skin: Normal color - Assessment and Plan (1) Renal failure (ARF), acute on chronic Current Visit: No Status: Chronic Assessment and Plan: Patient with a creatinine of 4.30 on admission; baseline approximately 2.0 Nephrology consulted with recommendations for permacath placement Plans to initiate hemodialysis after permacath placement today (2) UTI (urinary tract infection) Current Visit: No Status: Acute Assessment and Plan: Patient with a positive urinalysis at outlying facility; repeat urinalys is/cultures pending Will continue IV ceftriaxone started on admission (3) Benign hypertension with chronic kidney disease, stage III Current Visit: No Status: Acute Assessment and Plan: Controlled; continue clonidine, losartan and amlodipine. (4) Type 2 diabetes mellitus with diabetic chronic kidney disease Current Visit: No Status: Acute Assessment and Plan: Will hold home dose of sulfonylurea and cover with low-dose sliding scale insulin. (5) Anemia Current Visit: No Status: Chronic Assessment and Plan: Stable; continue to monitor DVT Prophylaxis: Subcutaneous heparin - Time Spent with Patient Total time spent is greater than 50% in coordination of care (as documented) at patient's floor/unit and/or counseling patient: Internal Medicine: Result - Labs CBC & Chem 7: 03/08/18 10:42 03/09/18 04:54 Labs: BMP 03/09/18 04:54 Sodium 143 Potassium 4.8 Chloride 112 H Carbon Dioxide 24 BUN 53 H Creatinine 4.30 H Glucose 114 H Calcium 8.7 - ABG Interpretation ABG results: PT/INR, D-dimer PT 12.9 Seconds (9.4-12.1) H 03/07/18 23:08 - Impressions Impressions Retroperitoneum Ultrasound 03/08/18 16:00 IMPRESSION: 1. Technically limited by body habitus. 2. Multiple bilateral renal cysts as described. 3. No hydronephrosis. D/ / 03/08/2018 18:01:28 Alanis Gong MD / tho Interpreting Provider: Alanis Gong MD Consult Discharge Plan - Plan Referrals: Bill Candelaria MD [Primary Care Provider] - (1) Renal failure (ARF), acute on chronic Qualifiers: Acute renal failure type: unspecified Chronic kidney disease stage: stage 4 (severe) Qualified Code(s): N17.9 - Acute kidney failure, unspecified; N18.4 - Chronic kidney disease, stage 4 (severe) (2) UTI (urinary tract infection) Qualifiers: Urinary tract infection type: acute cystitis Hematuria presence: without hematuria Qualified Code(s): N30.00 - Acute cystitis without hematuria (4) Type 2 diabetes mellitus with diabetic chronic kidney disease Qualifiers: Diabetes mellitus long-term insulin use: with analysis director use Chronic kidney disease stage: stage 3 (moderate) Qualified Code(s): E11.22 - Type 2 diabetes mellitus with diabetic chronic kidney disease; N18.3 - Chronic kidney disease, stage 3 (moderate); Z79.4 - stock clerk (current) use of insulin (5) Anemia Qualifiers: Anemia type: due to chronic kidney disease Chronic kidney disease stage: stage 4 (severe) Qualified Code(s): N18.4 - Chronic kidney disease, stage 4 (severe); D63.1 - Anemia in chronic kidney disease
[2018-03-09] MEDS: Ondansetron 4 MG/2 ML VIAL IVP PRN (22:44)
[2018-03-10 04:49] LABS: Basophils % 0.5 %; Eosinophils % 3.5 %; Hemoglobin 8.4 g/dL (11.5-15.4)
[2018-03-10 04:53] LABS: Eosinophils # 0.3 K/mcL (0.0-0.6); Hematocrit 24.7 % (35.3-44.9); Immature Granulocytes % 0.5 % (0-4); Lymphocytes % 32.5 %; Mean Corpuscular Hemoglobin 29.7 pg (28.0-33.3); Mean Corpuscular Volume 87.3 fL (83.0-100.0); Mean Platelet Volume 9.7 fL (9.4-12.4); Monocytes # 0.6 K/mcL (0.0-1.3); Monocytes % 7.3 %; Neutrophils # 4.9 K/mcL (1.6-8.9); Red Blood Count 2.83 M/mcL (3.82-4.97); Red Cell Distribution Width 13.5 % (11.5-14.5); Segmented Neutrophils % 55.7 %
[2018-03-10 04:54] LABS: Lymphocytes # 2.9 K/mcL (0.6-4.6); Platelet Count 70 K/mcL (140-400)
[2018-03-10] MEDS ORDERED: *HR* Labetalol 20 MG/4 ML SYRINGE IVP ONE ×2 (04:59→06:37)
[2018-03-10 05:07] LABS: Calcium 8.4 mg/dL (8.6-10.3); Potassium 4.4 mEq/L (3.5-5.1)
[2018-03-10] MEDS: *HR* Heparin 5,000 UNIT/ML VIAL SQ SCH ×2 (05:22→18:00)
[2018-03-10] MEDS: Acetaminophen 325 MG TABLET PO PRN ×2 (06:34→17:59)
[2018-03-10] MEDS ORDERED: 0.9 % Sodium Chloride 250 ML IVC PRN (07:21)
[2018-03-10] MEDS ORDERED: 0.9 % Sodium Chloride 1,000 ML ONE (07:41)
--- NOTE | 2018-03-10 08:49 | Internal Med Progress Note ---
Hospitalist Progress Note - Encounter Date of Encounter: 03/10/18 Time of Encounter: 11:00 - Subjective Interval History: Patient with acute on chronic CKD4 in addition to UTI Patient status post permacath placement on 03/09/18 and hemodialysis started on 03/09/80 Renal function with some improvement this morning - Exam Vitals: Temp Pulse Resp BP Pulse Ox 98.4 F 89 20 205/100 95 03/10/18 08:23 03/10/18 08:23 03/10/18 08:23 03/10/18 08:23 03/10/18 08:23 Exam: Gen.: Nonacute distress, alert and oriented 3 ENT: Mucosal membranes moist Respiratory: Lungs are clear to auscultation bilaterally without any wheezing rhonchi or rales Cardiovascular: Normal S1 and S2 regular rate rhythm no murmurs rubs or gallops Abdomen: Soft, nontender and nondistended with positive bowel sounds Extremities: No lower extremity edema Skin: pale - Assessment and Plan (1) Renal failure (ARF), acute on chronic Current Visit: No Status: Chronic Assessment and Plan: Patient with acute on chronic CKD4 in addition to UTI Patient status post permacath placement on 03/09/18 and hemodialysis started on 03/09/80 Renal function with some improvement this morning Nephrology following and appreciate recommendations (2) UTI (urinary tract infection) Current Visit: No Status: Acute Assessment and Plan: Patient with a positive urinalysis at outlying facility; repeat urinalysis/cultures showing gram-negative rods on Gram stain Will continue day 3 of IV ceftriaxone and await final results of cultures sensitivities (3) Benign hypertension with chronic kidney disease, stage III Current Visit: No Status: Acute Assessment and Plan: Controlled; continue clonidine, losartan and amlodipine. (4) Type 2 diabetes mellitus with diabetic chronic kidney disease Current Visit: No Status: Acute Assessment and Plan: Will hold home dose of sulfonylurea and cover with low-dose sliding scale insulin. (5) Anemia Current Visit: No Status: Chronic Assessment and Plan: Hemoglobin 8.4 this morning Suspect secondary to chronic kidney disease and iron deficiency anemia Will start iron supplementation DVT Prophylaxis: Subcutaneous heparin - Time Spent with Patient Total time spent is greater than 50% in coordination of care (as documented) at patient's floor/unit and/or counseling patient: Internal Medicine: Result - Labs CBC & Chem 7: 03/11/18 03:45 03/11/18 03:45 Labs: Short CBC 03/10/18 Range/Units 04:11 WBC 8.8 (4.3-11.1) K/mcL Hgb 8.4 L (11.5-15.4) g/dL Hct 24.7 L (35.3-44.9) % Plt Count 70 L (140-400) K/mcL Neutrophils # 4.9 (1.6-8.9) K/mcL BMP 03/10/18 04:11 Sodium 140 Potassium 4.4 Chloride 107 Carbon Dioxide 25 BUN 38 H Creatinine 3.39 H Glucose 129 H Calcium 8.4 L - ABG Interpretation ABG results: PT/INR, D-dimer PT 12.9 Seconds (9.4-12.1) H 03/07/18 23:08 Consult Discharge Plan - Plan Referrals: Bill Candelaria MD [Primary Care Provider] - (1) Renal failure (ARF), acute on chronic Qualifiers: Acute renal failure type: unspecified Chronic kidney disease stage: stage 4 (severe) Qualified Code(s): N17.9 - Acute kidney failure, unspecified; N18.4 - Chronic kidney disease, stage 4 (severe) (2) UTI (urinary tract infection) Qualifiers: Urinary tract infection type: acute cystitis Hematuria presence: without hematuria Qualified Code(s): N30.00 - Acute cystitis without hematuria (4) Type 2 diabetes mellitus with diabetic chronic kidney disease Qualifiers: Diabetes mellitus chcf insulin use: with chcf use Chronic kidney disease stage: stage 3 (moderate) Qualified Code(s): E11.22 - Type 2 diabetes mellitus with diabetic chronic kidney disease; N18.3 - Chronic kidney disease, stage 3 (moderate); Z79.4 - general laborer (current) use of insulin (5) Anemia Qualifiers: Anemia type: due to chronic kidney disease Chronic kidney disease stage: stag e 4 (severe) Qualified Code(s): N18.4 - Chronic kidney disease, stage 4 (s evere); D63.1 - Anemia in chronic kidney disease
[2018-03-10] MEDS: cloNIDine HCl 0.1 MG TABLET PO SCH ×3 (09:23→21:17)
[2018-03-10] MEDS: Aspirin Enteric Coated 81 MG Tablet PO SCH (09:24)
[2018-03-10] MEDS: Insulin LISPRO 300 UNITS/3 ML VIAL SQ SCH ×4 (09:25→21:28)
--- NOTE | 2018-03-10 11:39 | Nephrology Progress Note ---
Date of Encounter: 03/10/18 Time of Encounter: 10:45 - Assessment and Plan (1) Acute on chronic kidney failure Current Visit: Yes Status: Acute Pt was s/e while on HD. Next HD would tentatively be assessed for Monday. She has dialysis dependent SAUL but given her pre-existing advanced CKD she may have also just progressed into ESRD. Continue to arrange for an HD outpt chair and her Peramcath is already in place I will be available tomorrow (Monday) if needed. Qualifiers: Qualified Code(s): N17.9 - Acute kidney failure, unspecified; N18.9 - Chronic kidney disease, unspecified (2) HTN (hypertension) Current Visit: Yes Status: Chronic Uncontrolled: so I restarted her home Rx and inc'd the losartan from 25mg po daily to 50mg po daily. Qualifiers: Qualified Code(s): I10 - Essential (primary) hypertension Subjective Principal diagnosis: Acute chronic renal failure Interval history: Pt was s/e while on dialysis. She did not affirm N/V, cramping or feeling dizzy. Objective - Vital Signs Vital signs: Vital Signs Temp Pulse Resp BP Pulse Ox 03/10/18 08:23 98.4 F 89 20 205/100 95 03/10/18 06:30 193/82 03/10/18 04:58 98.7 F 79 16 176/87 97 03/10/18 04:55 188/93 03/10/18 02:51 184/89 03/10/18 02:25 189/84 03/10/18 01:54 188/93 03/10/18 01:17 178/90 03/10/18 00:05 98.5 F 85 17 200/78 96 03/09/18 21:57 99.3 F 03/09/18 19:28 98.8 F 84 17 176/83 95 03/09/18 17:12 99.3 F 88 18 171/96 97 03/09/18 16:48 97.3 F L 18 172/98 03/09/18 16:00 175/62 03/09/18 15:45 173/98 03/09/18 15:30 181/99 03/09/18 15:15 143/97 03/09/18 15:00 176/100 03/09/18 14:45 174/96 03/09/18 14:30 185/101 03/09/18 14:15 191/96 03/09/18 14:00 97.5 F L 18 194/93 03/09/18 11:47 89 14 194/105 98 03/09/18 11:41 86 16 190/108 97 Intake and Output 03/09/18 03/10/18 03/10/18 23:59 07:59 15:59 Output Total 1600 / 1600 500 / 500 Balance -1600 / -1600 -500 / -500 Output: Urine 0 / 0 Total Dialysis (HD) Output 1600 / 1600 Catheter 500 / 500 Other: Weight 142.7 kg Blood Glucose* 176 135 Hemodialysis Net Fluid Removed 1000 (mL) Patient Weight 03/10/18 23:59 Weight 142.7 kg - General Appearance General appearance: Present: well-developed, well-nourished, appears started age, obese EENT: Present: ATNC, PERRL, mucous membranes moist Neck: Present: supple Respiratory: Present: clear (but diminished d/t her body habitus) Cardiology: Present: edema (trace to 1+ ankle edema b/l), regular rate, regular rhythm, normal S1, normal S2 Dialysis Vascular Access: Venous Catheter (Right sided Permacath in place without exudates and Tegaderm nicely in place.) Gastrointestinal: Present: normoactive bowel sounds, no guarding, obese Integumentary: Present: no rash, warm and dry Neurologic: Present: no focal deficit, no asterixis, alert and oriented x3 Musculoskeletal: Present: no deformities, no erythema, no cyanosis Psychiatric: Present: mood/affect appropriate, cooperative - Lab 03/12/18 04:34 03/12/18 04:34 Most recent lab results Calcium 8.4 mg/dL (8.6-10.3) L 03/10/18 04:11 Consult Discharge Plan - Plan Referrals: Bill Candelaria MD [Primary Care Provider] -
[2018-03-10] MEDS: cefTRIAXone 1,000 MG in Water for inj. (sterile) 20 ML 10 ML IVP SCH (15:22)
[2018-03-10] MEDS: amLODIPine 5 MG TABLET PO SCH (15:23)
[2018-03-11] MEDS: Ondansetron 4 MG/2 ML VIAL IVP PRN (00:10)
[2018-03-11 04:11] LABS: Hemoglobin 8.8 g/dL (11.5-15.4); Immature Platelets 2.7 % (1.1-6.1); Mean Corpuscular HGB Conc 33.8 g/dL (31.6-35.5); Mean Corpuscular Hemoglobin 29.8 pg (28.0-33.3); Mean Corpuscular Volume 88.1 fL (83.0-100.0); Mean Platelet Volume 9.4 fL (9.4-12.4); Red Blood Count 2.95 M/mcL (3.82-4.97); Red Cell Distribution Width 13.4 % (11.5-14.5)
[2018-03-11 04:22] LABS: Calcium 8.9 mg/dL (8.6-10.3); Potassium 4.4 mEq/L (3.5-5.1)
[2018-03-11] MEDS: *HR* Heparin 5,000 UNIT/ML VIAL SQ SCH ×2 (05:17→18:22)
[2018-03-11] MEDS: Insulin LISPRO 300 UNITS/3 ML VIAL SQ SCH ×4 (09:35→22:13)
[2018-03-11] MEDS: amLODIPine 5 MG TABLET PO SCH (09:46)
[2018-03-11] MEDS: Aspirin Enteric Coated 81 MG Tablet PO SCH (09:46)
[2018-03-11] MEDS: cefTRIAXone 1,000 MG in Water for inj. (sterile) 20 ML 10 ML IVP SCH (09:47)
[2018-03-11] MEDS: cloNIDine HCl 0.1 MG TABLET PO SCH ×3 (09:47→20:22)
--- NOTE | 2018-03-11 09:51 | Internal Med Progress Note ---
Hospitalist Progress Note - Encounter Date of Encounter: 03/11/18 Time of Encounter: 11:00 - Subjective Interval History: Patient with acute on chronic CKD4 in addition to UTI Urine culture positive for ESBL Patient status post permacath placement on 03/09/18 and hemodialysis started on 03/09/80 Renal function continues to improve status post dialysis - Exam Vitals: Temp Pulse Resp BP Pulse Ox 98.5 F 133 16 178/76 95 03/11/18 07:39 03/11/18 07:39 03/11/18 07:39 03/11/18 07:39 03/11/18 07:39 Exam: Gen.: Nonacute distress, alert and oriented 3 ENT: Mucosal membranes moist Respiratory: Lungs are clear to auscultation bilaterally without any wheezing rhonchi or rales Cardiovascular: Normal S1 and S2 regular rate rhythm no murmurs rubs or gallops Abdomen: Soft, nontender and nondistended with positive bowel sounds Extremities: No lower extremity edema Skin: pale - Assessment and Plan (1) ESBL (extended spectrum beta-lactamase) producing bacteria infection Current Visit: Yes Status: Acute Assessment and Plan: Patient's urine culture positive for ESBL which is resistant to ceftriaxone Will therefore discontinue ceftriaxone and start patient on IV Zosyn which bacteria is sensitive to Will consult infectious disease for recommendations for duration of treatment (2) Renal failure (ARF), acute on chronic Current Visit: No Status: Chronic Assessment and Plan: Patient with acute on chronic CKD4 in addition to UTI Patient status post permacath placement on 03/09/18 and hemodialysis started on 03/09/18 Renal function continues to improve status post dialysis Nephrology following and appreciate recommendations (3) Benign hypertension with chronic kidney disease, stage III Current Visit: No Status: Acute Assessment and Plan: Controlled; continue clonidine, losartan and amlodipine. (4) Type 2 diabetes mellitus with diabetic chronic kidney disease Current Visit: No Status: Acute Assessment and Plan: Continue holding home dose of sulfonylurea and coverage with low-dose sliding scale insulin. (5) Anemia Current Visit: No Status: Chronic Assessment and Plan: Hemoglobin 8.8 this morning Suspect secondary to chronic kidney disease and iron deficiency anemia Will start iron supplementation DVT Prophylaxis: Heparin subcutaneous - Time Spent with Patient Total time spent is greater than 50% in coordination of care (as documented) at patient's floor/unit and/or counseling patient: Internal Medicine: Result - Labs CBC & Chem 7: 03/11/18 03:45 03/11/18 03:45 Labs: Short CBC 03/11/18 Range/Units 03:45 WBC 7.5 (4.3-11.1) K/mcL Hgb 8.8 L (11.5-15.4) g/dL Hct 26.0 L (35.3-44.9) % Plt Count 79 L (140-400) K/mcL BMP 03/11/18 03:45 Sodium 138 Potassium 4.4 Chloride 102 Carbon Dioxide 27 BUN 25 H Creatinine 2.79 H Glucose 128 H Calcium 8.9 - ABG Interpretation ABG results: PT/INR, D-dimer PT 12.9 Seconds (9.4-12.1) H 03/07/18 23:08 - Impressions Impressions Guidance Ultrasound 03/09/18 00:00 IMPRESSION: Successful ultrasound and fluoroscopy guided tunneled dialysis catheter placement . D/ / Dante Mueller MD / Dante Mueller MD Interpreting Provider: Dante Mueller MD Insertion Tunneled Catheter 03/09/18 00:00 IMPRESSION: Successful ultrasound and fluoroscopy guided tunneled dialysis catheter placement . D/ / Dante Mueller MD / Dante Mueller MD Interpreting Provider: Dante Mueller MD Consult Discharge Plan - Plan Referrals: Bill Candelaria MD [Primary Care Provider] - (2) Renal failure (ARF), acute on chronic Qualifiers: Acute renal failure type: unspecified Chronic kidney disease stage: stage 4 (severe) Qualified Code(s): N17.9 - Acute kidney failure, unspecified; N18.4 - Chronic kidney disease, stage 4 (severe) (4) Type 2 diabetes mellitus with diabetic chronic kidney disease Qualifiers: Diabetes mellitus keno terminal operator insulin use: with keno terminal operator use Chronic kidney disease stage: stage 3 (moderate) Qualified Code(s): E11.22 - Type 2 diabetes mellitus with diabetic chronic kidney disease; N18.3 - Chronic kidney disease, s tage 3 (moderate); 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
--- NOTE | 2018-03-11 12:27 | Event Note ---
Date of Encounter: 03/11/18 Time of Encounter: 12:26 Nephrology Chart Review/Update She last completed HD yesterday (Monday) via a Permacath. Awaiting the SW to assist with a dialysis chair for placement for Dialysis-dependent SAUL. She will be a check for HD on Monday, but definitely back on for Monday, if she remains hospitalized. Thank you.
[2018-03-11] MEDS: Acetaminophen 325 MG TABLET PO PRN ×2 (13:45→20:36)
[2018-03-11] MEDS: Piperacillin/Tazobactam 3.375 GM in 0.9 % Sodium Chloride Mini Bag 100 ML IVPB SCH (18:22)
[2018-03-12 05:00] LABS: Hematocrit 24.4 % (35.3-44.9); Immature Platelets 2.4 % (1.1-6.1); Mean Corpuscular HGB Conc 32.8 g/dL (31.6-35.5); Mean Corpuscular Hemoglobin 29.5 pg (28.0-33.3); Red Blood Count 2.71 M/mcL (3.82-4.97); Red Cell Distribution Width 13.6 % (11.5-14.5)
[2018-03-12 05:16] LABS: Calcium 8.3 mg/dL (8.6-10.3); Potassium 4.6 mEq/L (3.5-5.1)
[2018-03-12] MEDS: *HR* Heparin 5,000 UNIT/ML VIAL SQ SCH ×2 (06:00→17:16)
[2018-03-12] MEDS: Ondansetron 4 MG/2 ML VIAL IVP PRN (06:00)
[2018-03-12] MEDS: Piperacillin/Tazobactam 3.375 GM in 0.9 % Sodium Chloride Mini Bag 100 ML IVPB SCH (06:00)
[2018-03-12] MEDS ORDERED: 0.9 % Sodium Chloride 250 ML IVC PRN (06:45)
[2018-03-12] MEDS: Insulin LISPRO 300 UNITS/3 ML VIAL SQ SCH ×4 (09:18→21:42)
[2018-03-12] MEDS: Aspirin Enteric Coated 81 MG Tablet PO SCH (10:17)
[2018-03-12] MEDS ORDERED: *HR* Heparin 10,000 UNIT/10 ML VIAL IV PRN (12:09)
--- NOTE | 2018-03-12 13:35 | Nephrology Progress Note ---
Date of Encounter: 03/12/18 Time of Encounter: 13:31 - Assessment and Plan (1) Renal failure (ARF), acute on chronic Current Visit: No Status: Chronic Acute on chronic kidney injury. She has known CKD IV for which she follows with logging tractor operator Dr. Mcdermott. They have had discussions that she may have to start dialysis in the near future. -Etiology may be diabetic nephropathy, interstitial nephritis. Patient also has symptomatic UTI. -creatinine 3.86, admission 4.12 (baseline 2.9-3) -GFR 11 -BUN 37 -I&O: 610/3800 good urine output -urinalysis: >1000 protein, leukocyte esterase positive, WBC, no casts seen -retroperitoneal ultrasound: multiple bilateral renal cyst, no hydronephrosis. -Negative urine eosinophils Workup thus far 06/25/2017: -urine total protein 24 hour 3427, urine albumin (PEP) detected -total protein 5.6, serum total protein 5.4, Alpha 1 globulins 0.43, alpha 2 globulin 0.86, beta globulins 0.8, gamma globulins 0.5 -IgG 498, IgA 240, IgM 32, free [place] LC Quant 2.9, free lambda LC Quant 2.19, free [place]/lambda ratio 1.32 Plan: -patient has developed dialysis dependent acute kidney injury however she may also be progressing to ESRD. She currently has a permit cath in place in underwent HD on Monday. She will go for HD today. Social work is scheduling patient for chair time for HD. -renal dose medications -avoid nephrotoxic agents -monitor I&O -monitor serum creatinine Qualifiers: Acute renal failure type: unspecified Chronic kidney disease stage: stage 4 (severe) Qualified Code(s): N17.9 - Acute kidney failure, unspecified; N18.4 - Chronic kidney disease, stage 4 (severe) (2) Anemia Current Visit: No Status: Chronic Anemia likely both iron deficiency and chronic disease in setting of CKD, CHF, DM hemoglobin 8 (she is at baseline) MCV normocytic 06/25/2017: iron 17, 6% saturation, transferrin 182, ferritin 175 no obvious active bleeding -May benefit from iron supplementation. Goal hemoglobin 10 to 11 Qualifiers: Anemia type: due to chronic kidney disease Chronic kidney disease stage: s tage 4 (severe) Qualified Code(s): N18.4 - Chronic kidney disease, stage 4 (severe); D63.1 - Anemia in chronic kidney disease (3) Hypertension Current Visit: No Status: Chronic History of hypertension with medications including losartan, clonidine, amlodipine stable Qualifiers: Hypertension type: essential hypertension Qualified Code(s): I10 - Essential (primary) hypertension (4) UTI (urinary tract infection) Current Visit: No Status: Acute She is frequent urinary tract infections with her last one being last week where she finished taking Bactrim. She still reports feeling like she has a urinary tract infection with dysuria and foul-smelling urine. She denies increased frequency and hematuria. -urinalysis: >1000 protein, leukocyte esterase positive, WBC, no casts seen -urine culture growing E. coli ESBL -patient receiving ertapenem Qualifiers: Urinary tract infection type: acute cystitis Hematuria presence: without hematuria Qualified Code(s): N30.00 - Acute cystitis without hematuria Subjective Principal diagnosis: Acute chronic renal failure Interval history: Patient seen and examined at bedside. She is alert and oriented times 3. She admits to fatigue and a little nausea today. She stated that her pelvic pressure has resolved. She denies fever, chills, vomiting, abdominal pain, dysuria. Objective - Vital Signs Vital signs: Vital Signs Temp Pulse Resp BP Pulse Ox 03/12/18 12:00 152/90 03/12/18 11:45 156/92 03/12/18 11:30 151/90 03/12/18 11:15 146/93 03/12/18 11:00 143/81 03/12/18 10:45 156/85 03/12/18 10:30 157/78 03/12/18 10:15 164/85 03/12/18 10:04 94 03/12/18 10:00 175/89 03/12/18 09:45 98.8 F 18 177/90 03/12/18 06:40 98.4 F 80 16 179/81 94 03/12/18 04:40 98.4 F 69 16 162/75 95 03/12/18 00:05 98.1 F 70 16 160/74 95 03/11/18 21:40 98.6 F 79 16 179/78 95 03/11/18 17:15 98.8 F 77 20 167/85 96 Intake and Output 03/11/18 03/12/18 03/12/18 23:59 07:59 15:59 Intake Total 600 / 600 740 / 740 Balance 600 / 600 740 / 740 Intake: IV Fluids 100 / 100 Zosyn 3.375 GM In 0.9 % Sodium 100 / 100 Chloride (Mini-Bag +) 100 ML @ 25 mls/hr IVPB Q12HR YUNG Rx#: [id number] Oral 500 / 500 140 / 140 Intake, Rinseback and Flushes 600 / 600 Other: Meal Breakfast Percent of Meal Consumed 75% # Voids 1 Weight 143.5 kg 143.5 kg Blood Glucose* 186 115 131 Hemodialysis Net Fluid Removed 2006 (mL) Patient Weight 03/12/18 23:59 Weight 143.5 kg - General Appearance General appearance: Present: well-developed, well-nourished, appears started age EENT: Present: mucous membranes moist Neck: Present: supple Respiratory: Present: clear Cardiology: Present: no murmurs, edema (Mild bilateral), regular rate, regular rhythm Dialysis Vascular Access: Venous Catheter (Right-sided perma cath) Gastrointestinal: Present: normoactive bowel sounds, no tenderness, no guarding, no organomegaly Integumentary: Present: no rash, warm and dry Neurologic: Present: alert and oriented x3, CN 3-12 intact Musculoskeletal: Present: no deformities, no erythema Psychiatric: Present: mood/affect appropriate, cooperative - Lab 03/12/18 04:34 03/12/18 04:34 Most recent lab results Calcium 8.3 mg/dL (8.6-10.3) L 03/12/18 04:34 Consult Discharge Plan - Plan Referrals: Bill Candelaria MD [Primary Care Provider] -
[2018-03-12] MEDS: amLODIPine 5 MG TABLET PO SCH (13:49)
[2018-03-12] MEDS: cloNIDine HCl 0.1 MG TABLET PO SCH ×3 (13:49→21:48)
--- NOTE | 2018-03-12 17:20 | Internal Med Progress Note ---
Hospitalist Progress Note - Encounter Date of Encounter: 03/12/18 Time of Encounter: 17:18 - Subjective Interval History: Pt states she is constipated. Nurse states she has had colace 100 mg x 6 doses and still feels constipated. She denies vomiting but does report some nausea. She denies CP or SOB. She denies fever or chills. - Exam Vitals: Temp Pulse Resp BP Pulse Ox 97.9 F 88 16 173/79 96 03/12/18 16:02 03/12/18 16:02 03/12/18 16:02 03/12/18 16:02 03/12/18 16:02 Exam: Physical exam: Gen.: Nonacute distress, alert and oriented 3 ENT: Mucosal membranes moist Respiratory: Lungs are clear to auscultation bilaterally without any wheezing rhonchi or rales Cardiovascular: Normal S1 and S2 regular rate rhythm no murmurs rubs or gallops Abdomen: Soft, non-tender and non-distended with positive bowel sounds Extremities: No lower extremity edema Skin: no rash, bumps, or bruises. - Assessment and Plan (1) Renal failure (ARF), acute on chronic Current Visit: No Status: Chronic Assessment and Plan: Patient with acute on chronic CKD4 in addition to UTI Patient status post permacath placement on 03/09/18 and hemodialysis started on 03/09/18 Renal function continuesd to improve status post dialysis but Cr bumped today 03/12/2018 Nephrology following and appreciate recommendations (2) Anemia Current Visit: No Status: Chronic Assessment and Plan: Hemoglobin 8.8 this morning Suspect secondary to chronic kidney disease. Iron 17 L, % saturation 6% L, Ferritin 175 H, transferrin 192 L. (3) Benign hypertension with chronic kidney disease, stage III Current Visit: No Status: Acute Assessment and Plan: Controlled; continue clonidine, losartan and amlodipine. (4) Type 2 diabetes mellitus with diabetic chronic kidney disease Current Visit: No Status: Acute Assessment and Plan: Continue holding home dose of sulfonylurea and coverage with low-dose sliding scale insulin. (5) ESBL (extended spectrum beta-lactamase) producing bacteria infection Current Visit: Yes Status: Acute Assessment and Plan: Patient's urine culture positive for ESBL which is resistant to ceftriaxone Ceftriaxone was discontinued and pt was tarted on Zosyn which bacteria is sensitive to Discussed with pharmacy and was switched to Ertapenem but after discussion with ID he recommends Fosfomycin instead. Appreciate medical recommendation from infectious disease for Fosfomycin 1 packet Q 48 hours disp 3 to be given at discharge. DVT Prophylaxis: Heparin subcutaneous - Summary of Assessment and Plan Summary of Assessment and Plan: Susannah Rubin is an 82 year old female with a PMH of HTN, DM, gout, depression, and knee replacement who presented as a transfer from [facility] to [facility] [place] on 03/07/18. Patient initially presented to [facility] for headache and body aches. Patient also complained of progressive weakness of several days duration. Known history of stage IV CKD; seen by nephrology in [place]. Patient is supposed to undergo dialysis training, and possibly start dialysis in the near future. Patient still produces urine with incontinence. Patient reports a headache, and feels like she has a fluid due to body aches. Patient denied having any other symptoms. No exacerbating or relieving factors. Vitals on presentation to [facility] were as follows: Blood pressure 145/70, temperature 97.9, pulse 90 bpm, respiratory rate 20/m, O2 saturation 95% on room air. Labs demonstrated a hemoglobin of 8.8. Platelets were low at 75. Creatinine was elevated at 4.41. Alkaline phosphatase elevated at 134. Influenza a and B were both negative. Patient was seen and examined at bedside; patient reports that she feels generalized weakness, and complains of a headache that has been present since her arrival. Patient describes headache as bilateral, located in's temporal area. Denies having any associated visual changes or lightheadedness. Pain is not exacerbated by bright lights. She denies having any fever, chills, nausea, vomiting, diarrhea, numbness, tingling, or paresthesias. No further complaints at this time. - Time Spent with Patient Total time spent is greater than 50% in coordination of care (as documented) at patient's floor/unit and/or counseling patient: less than 15 minutes Plan of Care Discussed with: patient Internal Medicine: Result - Labs CBC & Chem 7: 03/12/18 04:34 03/12/18 04:34 Labs: Short CBC 03/12/18 Range/Units 04:34 WBC 7.3 (4.3-11.1) K/mcL Hgb 8.0 L (11.5-15.4) g/dL Hct 24.4 L (35.3-44.9) % Plt Count 83 L (140-400) K/mcL BMP 03/12/18 04:34 Sodium 138 Potassium 4.6 Chloride 103 Carbon Dioxide 27 BUN 37 H Creatinine 3.86 H Glucose 101 Calcium 8.3 L - ABG Interpretation ABG results: PT/INR, D-dimer PT 12.9 Seconds (9.4-12.1) H 03/07/18 23:08 Consult Discharge Plan - Plan Referrals: Bill Candelaria MD [Primary Care Provider] - (1) Renal failure (ARF), acute on chronic Qualifiers: Acute renal failure type: unspecified Chronic kidney disease stage: stage 4 (severe) Qualified Code(s): N17.9 - Acute kidney failure, unspecified; N18.4 - Chronic kidney disease, stage 4 (severe) (2) Anemia Qualifiers: Anemia type: due to chronic kidney disease Chronic kidney disease stage: stage 4 (severe) Qualified Code(s): N18.4 - Chronic kidney disease, stage 4 (severe); D63.1 - Anemia in chronic kidney disease (4) Type 2 diabetes mellitus with diabetic chronic kidney disease Qualifiers: Diabetes mellitus oysterman insulin use: with senior living use Chronic kidney disease stage: stage 3 (moderate) Qualified Code(s): E11.22 - Type 2 diabetes mellitus with diabetic chronic kidney disease; N18.3 - Chronic kidney disease, stage 3 (moderate); Z79.4 - half-way (current) use of insulin
[2018-03-12] MEDS ORDERED: Milk and Molasses Enema 200 ML RC ONE (17:29)
[2018-03-12] MEDS: Sennosides 8.6 MG TABLET PO SCH (21:48)
[2018-03-13] MEDS: *HR* Heparin 5,000 UNIT/ML VIAL SQ SCH ×2 (05:22→17:23)
[2018-03-13 05:46] LABS: Mean Corpuscular Volume 90.6 fL (83.0-100.0)
[2018-03-13 05:48] LABS: Hematocrit 26.9 % (35.3-44.9); Hemoglobin 8.8 g/dL (11.5-15.4); Immature Platelets 2.8 % (1.1-6.1); Mean Corpuscular HGB Conc 32.7 g/dL (31.6-35.5); Mean Corpuscular Hemoglobin 29.6 pg (28.0-33.3); Red Blood Count 2.97 M/mcL (3.82-4.97); Red Cell Distribution Width 13.9 % (11.5-14.5)
[2018-03-13 05:58] LABS: Calcium 8.5 mg/dL (8.6-10.3); Potassium 4.2 mEq/L (3.5-5.1)
[2018-03-13] MEDS: Insulin LISPRO 300 UNITS/3 ML VIAL SQ SCH ×4 (08:03→23:27)
[2018-03-13] MEDS: cloNIDine HCl 0.1 MG TABLET PO SCH ×3 (08:14→20:51)
[2018-03-13] MEDS: Sennosides 8.6 MG TABLET PO SCH ×2 (08:14→20:52)
[2018-03-13] MEDS: amLODIPine 5 MG TABLET PO SCH (08:14)
[2018-03-13] MEDS: Aspirin Enteric Coated 81 MG Tablet PO SCH (08:14)
[2018-03-13] MEDS: Acetaminophen 325 MG TABLET PO PRN (08:19)
--- NOTE | 2018-03-13 08:53 | Nephrology Progress Note ---
Date of Encounter: 03/13/18 Time of Encounter: 08:47 - Assessment and Plan (1) Renal failure (ARF), acute on chronic Current Visit: No Status: Chronic Acute on chronic kidney injury. She has known CKD IV for which she follows with engineer systems Dr. Mcdermott. They have had discussions that she may have to start dialysis in the near future. -Etiology may be diabetic nephropathy, interstitial nephritis. Patient also has symptomatic UTI. -creatinine 3.34, admission 4.12 (baseline 2.9-3) -GFR 13 -I&O: 950/3100 good urine output -urinalysis: >1000 protein, leukocyte esterase positive, WBC, no casts seen -retroperitoneal ultrasound: multiple bilateral renal cyst, no hydronephrosis. -Negative urine eosinophils Workup thus far 06/25/2017: -urine total protein 24 hour 3427, urine albumin (PEP) detected -total protein 5.6, serum total protein 5.4, Alpha 1 globulins 0.43, alpha 2 globulin 0.86, beta globulins 0.8, gamma globulins 0.5 -IgG 498, IgA 240, IgM 32, free [place] LC Quant 2.9, free lambda LC Quant 2.19, free [place]/lambda ratio 1.32 Plan: -patient has developed dialysis dependent acute kidney injury however she may also be progressing to ESRD. Social work is scheduling patient for chair time for HD. She has a right-sided perma cath however, a follow up chest x-ray showed it has moved and interventional radiology has been consulted to correct placement. Additionally, before chair time can be set up she needs a total core hepatitis B antibody. The orders have been placed. Once chair time is set up and confirmed, patient may be discharged from a nephrology standpoint. -renal dose medications -avoid nephrotoxic agents -monitor I&O -monitor serum creatinine Qualifiers: Acute renal failure type: unspecified Chronic kidney disease stage: stage 4 (severe) Qualified Code(s): N17.9 - Acute kidney failure, unspecified; N18.4 - Chronic kidney disease, stage 4 (severe) (2) Anemia Current Visit: No Status: Chronic Anemia likely both iron deficiency and chronic disease in setting of CKD, CHF, DM hemoglobin 8.8 (she is at baseline) MCV normocytic 06/25/2017: iron 17, 6% saturation, transferrin 182, ferritin 175 no obvious active bleeding -She takes ferrous sulfate at home. Goal hemoglobin 10 to 11 Qualifiers: Anemia type: due to chronic kidney disease Chronic kidney disease stage: stage 4 (severe) Qualified Code(s): N18.4 - Chronic kidney disease, stage 4 (severe); D63.1 - Anemia in chronic kidney disease (3) Hypertension Current Visit: No Status: Chronic History of hypertension with medications including losartan, clonidine, amlodipine stable Qualifiers: Hypertension type: essential hypertension Qualified Code(s): I10 - Essential (primary) hypertension (4) UTI (urinary tract infection) Current Visit: No Status: Acute She is frequent urinary tract infections with her last one being last week where she finished taking Bactrim. She still reports feeling like she has a urinary t ract infection with dysuria and foul-smelling urine. She denies increased frequency and hematuria. -urinalysis: >1000 protein, leukocyte esterase positive, WBC, no casts seen -urine culture growing E. coli ESBL -patient receiving ertapenem Qualifiers: Urinary tract infection type: acute cystitis Hematuria presence: without hematuria Qualified Code(s): N30.00 - Acute cystitis without hematuria Subjective Principal diagnosis: Acute chronic renal failure Interval history: Patient seen and examined at bedside. She is alert and oriented times 3. She admits to nausea however this is chronic to her. She denies fever, chills, vomiting, abdominal pain, dysuria. Objective - Vital Signs Vital signs: Vital Signs Temp Pulse Resp BP Pulse Ox 03/13/18 07:43 98.6 F 77 18 185/78 95 03/13/18 04:08 98.4 F 83 18 156/81 95 03/12/18 23:19 98.3 F 82 18 160/77 97 03/12/18 18:00 98.7 F 83 16 145/68 96 03/12/18 16:02 97.9 F 88 16 173/79 96 03/12/18 13:44 98.4 F 86 17 166/96 96 03/12/18 13:30 98.1 F 18 173/93 03/12/18 13:15 153/95 03/12/18 13:00 133/95 03/12/18 12:45 132/92 03/12/18 12:30 149/90 03/12/18 12:15 163/92 03/12/18 12:00 152/90 03/12/18 11:45 156/92 03/12/18 11:30 151/90 03/12/18 11:15 146/93 03/12/18 11:00 143/81 03/12/18 10:45 156/85 03/12/18 10:30 157/78 03/12/18 10:15 164/85 03/12/18 10:04 94 03/12/18 10:00 175/89 03/12/18 09:45 98.8 F 18 177/90 Intake and Output 03/12/18 03/13/18 03/13/18 23:59 07:59 15:59 Intake Total 200 / 200 Output Total 0 / 0 Balance 200 / 200 Intake: IV Fluids 200 / 200 INVanz 500 MG In 0.9 % Sodium 100 / 100 Chloride 100 ML @ 100 mls/hr IVPB ONCE ONE Rx#:[id number] Zosyn 3.375 GM In 0.9 % Sodium 100 / 100 Chloride (Mini-Bag +) 100 ML @ 25 mls/hr IVPB Q12HR [facility] Rx#: [id number] Oral 0 / 0 Output: Urine 0 / 0 Other: Stool Size Large Stool Consistency formed # Bowel Movements 1 Weight 141.7 kg Blood Glucose* 125 103 - General Appearance General appearance: Present: well-developed, well-nourished, appears started age EENT: Present: mucous membranes moist Neck: Present: supple Respiratory: Present: clear Cardiology: Present: edema (Mild bilateral), regular rate, regular rhythm Dialysis Vascular Access: Venous Catheter (right perma cath) Gastrointestinal: Present: no tenderness, no guarding, no organomegaly Integumentary: Present: no rash, warm and dry Neurologic: Present: no focal deficit, no asterixis, alert and oriented x3 Musculoskeletal: Present: no cyanosis, no clubbing Psychiatric: Present: mood/affect appropriate, cooperative - Lab 03/13/18 04:55 03/13/18 04:55 Most recent lab results Calcium 8.5 mg/dL (8.6-10.3) L 03/13/18 04:55 Consult Discharge Plan - Plan Referrals: Bill Candelaria MD [Primary Care Provider] -
[2018-03-13] MEDS ORDERED: amLODIPine 5 MG TABLET PO ONE (10:39)
[2018-03-13] MEDS ORDERED: Heparin 1,000 UNITS/500 mL 500 ML ONE (13:47)
[2018-03-13] MEDS ORDERED: *HR* Heparin 5,000 UNIT/ML VIAL ONE (14:56)
--- NOTE | 2018-03-13 14:58 | Internal Med Progress Note ---
Hospitalist Progress Note - Encounter Date of Encounter: 03/13/18 Time of Encounter: 15:03 - Subjective Interval History: Pt states she is constipated. Nurse states she has had colace 100 mg x 6 doses and still feels constipated. She denies vomiting but does report some nausea. She denies CP or SOB. She denies fever or chills. - Exam Vitals: Temp Pulse Resp BP Pulse Ox 98.4 F 79 18 160/78 97 03/13/18 11:43 03/13/18 11:43 03/13/18 11:43 03/13/18 11:43 03/13/18 11:43 Exam: Physical exam: Gen.: Nonacute distress, alert and oriented 3 ENT: Mucosal membranes moist Respiratory: Lungs are clear to auscultation bilaterally without any wheezing rhonchi or rales Cardiovascular: Normal S1 and S2 regular rate rhythm no murmurs rubs or gallops Abdomen: Soft, non-tender and non-distended with positive bowel sounds Extremities: No lower extremity edema Skin: no rash, bumps, or bruises. - Assessment and Plan (1) Renal failure (ARF), acute on chronic Current Visit: No Status: Chronic Assessment and Plan: Patient with acute on chronic CKD4 in addition to UTI Patient status post perm-a-cath placement on 03/09/18 and hemodialysis started on 03/09/18 Renal function continued to improve status post dialysis but Cr bumped today 03/12/2018 but down again 03/13/2018. Nephrology following and appreciate recommendations (2) Benign hypertension with chronic kidney disease, stage III Current Visit: No Status: Acute Assessment and Plan: Controlled; continue clonidine, losartan and amlodipine. (3) Type 2 diabetes mellitus with diabetic chronic kidney disease Current Visit: No Status: Acute Assessment and Plan: Continue holding home dose of sulfonylurea. Pt's glucose has been stable. Has coverage with low-dose sliding scale insulin. (4) ESBL (extended spectrum beta-lactamase) producing bacteria infection Current Visit: Yes Status: Acute Assessment and Plan: Patient's urine culture positive for ESBL which is resistant to ceftriaxone Ceftriaxone was discontinued and pt was tarted on Zosyn which bacteria is sensitive to Discussed with pharmacy and was switched to Ertapenem but after discussion with ID he recommends Fosfomycin instead. Appreciate medical recommendation from infectious disease for Fosfomycin 1 packet Q 48 hours disp 3 to be given at discharge. (5) Anemia Current Visit: No Status: Chronic Assessment and Plan: Hemoglobin 8.8 this morning Suspect secondary to chronic kidney disease. Iron 17 L, % saturation 6% L, Ferritin 175 H, transferrin 192 L. (6) Acute cystitis Current Visit: Yes Status: Acute Assessment and Plan: Patient's urine culture positive for ESBL which is resistant to ceftriaxone Ceftriaxone was discontinued and pt was tarted on Zosyn which bacteria is sensitive to Discussed with pharmacy and was switched to Ertapenem but after discussion with ID he recommends Fosfomycin at discharge. Appreciate medical recommendation from infectious disease for Fosfomycin 1 packet Q 48 hours disp 3 to be given at discharge. DVT Prophylaxis: Heparin - Summary of Assessment and Plan Summary of Assessment and Plan: Susannah Rubin is an 82 year old female with a PMH of HTN, DM, gout, depression, and knee replacement who presented as a transfer from [facility] to [facility] on 03/07/18. Patient initially presented to [facility] for headache and body aches. Patient also complained of progressive weakness of several days duration. Known history of stage IV CKD; seen by nephrology in [place]. Patient is supposed to undergo dialysis training, and possibly start dialysis in the near future. Patient still produces urine with incontinence. Patient reports a head ache, and feels like she has a fluid due to body aches. Patient denied having any other symptoms. No exacerbating or relieving factors. Vitals on presentation to [facility] were as follows: Blood pressure 145/70, temperature 97.9, pulse 90 bpm, respiratory rate 20/m, O2 saturation 95% on room air. Labs demonstrated a hemoglobin of 8.8. Platelets were low at 75. Creatinine was elevated at 4.41. Alkaline phosphatase elevated at 134. Influenza a and B were both negative. Patient was seen and examined at bedside; patient reports that she feels generalized weakness, and complains of a headache that has been present since her arrival. Patient describes headache as bilateral, located in's temporal area. Denies having any associated visual changes or lightheadedness. Pain is not exacerbated by bright lights. She denies having any fever, chills, nausea, vomiting, diarrhea, numbness, tingling, or paresthesias. No further complaints at this time. - Time Spent with Patient Total time spent is greater than 50% in coordination of care (as documented) at patient's floor/unit and/or counseling patient: less than 15 minutes Plan of Care Discussed with: patient Internal Medicine: Result - Labs CBC & Chem 7: 03/13/18 04:55 03/13/18 04:55 Labs: Short CBC 03/13/18 Range/Units 04:55 WBC 7.6 (4.3-11.1) K/mcL Hgb 8.8 L (11.5-15.4) g/dL Hct 26.9 L (35.3-44.9) % Plt Count 86 L (140-400) K/mcL BMP 03/13/18 04:55 Sodium 140 Potassium 4.2 Chloride 103 Carbon Dioxide 29 BUN 23 Creatinine 3.34 H Glucose 105 Calcium 8.5 L - ABG Interpretation ABG results: PT/INR, D-dimer PT 12.9 Seconds (9.4-12.1) H 03/07/18 23:08 - Impressions Impressions Chest X-Ray 03/12/18 18:48 IMPRESSION: 1. Slight interval retraction of the right IJ tunneled hemodialysis catheter with distal tip now terminating in the superior vena cava. The patient should be scheduled for nonemergent catheter repositioning by interventional radiology. 2. The visible lungs are without pneumothorax, pleural effusion or focal airspace opacity. D/ / Jamar Sepulveda / Jamar Sepulveda Interpreting Provider: Jamar Sepulveda Consult Discharge Plan - Plan Referrals: Bill Candelaria MD [Primary Care Provider] - (1) Renal failure (ARF), acute on chronic Qualifiers: Acute renal failure type: unspecified Chronic kidney disease stage: stage 4 (severe) Qualified Code(s): N17.9 - Acute kidney failure, unspecified; N18.4 - Chronic kidney disease, stage 4 (severe) (3) Type 2 diabetes mellitus with diabetic chronic kidney disease Qualifiers: Diabetes mellitus penitentiary insulin use: with intermodal dispatcher use Chronic kidney disease stage: stage 3 (moderate) Qualified Code(s): E11.22 - Type 2 diabetes mellitus with diabetic chronic kidney disease; N18.3 - Chronic kidney disease, stage 3 (moderate); Z79.4 - FPC (current) use of insulin (5) Anemia Qualifiers: Anemia type: due to chronic kidney disease Chronic kidney disease stage: stage 4 (severe) Qualified Code(s): N18.4 - Chronic kidney disease, stage 4 (severe); D63.1 - Anemia in chronic kidney disease
--- NOTE | 2018-03-13 15:01 | IR Procedure Note ---
Date of procedure: 03/13/18 Consent Obtained: Verbal consent, Written consent Timeout: Correct patient and procedure verified, Correct site verified, Time out performed, Skin prep completed Local anesthetic: Lidocaine 1% Indications: retracted tunneled HD catheter Procedure Performed: tunneled HD catheter exchange to 23 cm tip to cuff Was there an night assistant present: No Site/Technique: right IJ Results/Findings: retracted right IJ TDC Estimated blood loss (cc): 0 Complications: None; Tolerated procedure well Post Procedure Treatment Plan: ok to use catheter Specimen: NA
[2018-03-14 05:25] LABS: Hematocrit 27.1 % (35.3-44.9); Hemoglobin 8.8 g/dL (11.5-15.4); Immature Platelets 2.4 % (1.1-6.1); Mean Corpuscular HGB Conc 32.5 g/dL (31.6-35.5); Mean Corpuscular Hemoglobin 29.4 pg (28.0-33.3); Mean Corpuscular Volume 90.6 fL (83.0-100.0); Mean Platelet Volume 10.1 fL (9.4-12.4); Red Blood Count 2.99 M/mcL (3.82-4.97); Red Cell Distribution Width 13.8 % (11.5-14.5)
[2018-03-14 05:42] LABS: Calcium 8.5 mg/dL (8.6-10.3)
[2018-03-14] MEDS: *HR* Heparin 5,000 UNIT/ML VIAL SQ SCH ×2 (06:42→16:28)
[2018-03-14] MEDS ORDERED: 0.9 % Sodium Chloride 250 ML IVC PRN (07:20)
[2018-03-14] MEDS ORDERED: *HR* Heparin 10,000 UNIT/10 ML VIAL IV PRN (07:20)
[2018-03-14] MEDS ORDERED: 0.9 % Sodium Chloride 1,000 ML PRIME SCH (07:30)
[2018-03-14] MEDS ORDERED: 0.9 % Sodium Chloride 1,000 ML ONE (07:32)
[2018-03-14] MEDS: Aspirin Enteric Coated 81 MG Tablet PO SCH (08:03)
[2018-03-14] MEDS: Sennosides 8.6 MG TABLET PO SCH ×2 (08:03→22:28)
[2018-03-14] MEDS: cloNIDine HCl 0.1 MG TABLET PO SCH ×3 (08:03→22:27)
[2018-03-14] MEDS: amLODIPine 5 MG TABLET PO SCH (08:03)
[2018-03-14] MEDS: Insulin LISPRO 300 UNITS/3 ML VIAL SQ SCH ×4 (08:04→22:27)
--- NOTE | 2018-03-14 08:56 | Nephrology Progress Note ---
Date of Encounter: 03/14/18 Time of Encounter: 08:45 - Assessment and Plan (1) Renal failure (ARF), acute on chronic Current Visit: No Status: Chronic Acute on chronic kidney injury. She has known CKD IV for which she follows with wire stockkeeper Dr. Mcdermott. They have had discussions that she may have to start dialysis in the near future. -Etiology may be diabetic nephropathy, interstitial nephritis. Patient also has symptomatic UTI. -creatinine 4.16, admission 4.12 (baseline 2.9-3) worsening -GFR 10 -I&O: 150/300 good urine output -urinalysis: >1000 protein, leukocyte esterase positive, WBC, no casts seen -retroperitoneal ultrasound: multiple bilateral renal cyst, no hydronephrosis. -Negative urine eosinophils Workup thus far 06/25/2017: -urine total protein 24 hour 3427, urine albumin (PEP) detected -total protein 5.6, serum total protein 5.4, Alpha 1 globulins 0.43, alpha 2 globulin 0.86, beta globulins 0.8, gamma globulins 0.5 -IgG 498, IgA 240, IgM 32, free [place] LC Quant 2.9, free lambda LC Quant 2.19, free [place]/lambda ratio 1.32 Plan: -patient has developed dialysis dependent acute kidney injury however she may also be progressing to ESRD. Social work is scheduling patient for chair time for HD Monday, Monday, Monday. Additionally, before chair time can be set up she needs a total core hepatitis B antibody. The orders have been placed. Once chair time is set up and confirmed, patient may be discharged from a nephrology standpoint. Awaiting lab results. -renal dose medications -avoid nephrotoxic agents -monitor I&O -monitor serum creatinine Qualifiers: Acute renal failure type: unspecified Chronic kidney disease stage: stage 4 (severe) Qualified Code(s): N17.9 - Acute kidney failure, unspecified; N18.4 - Chronic kidney disease, stage 4 (severe) (2) Anemia Current Visit: No Status: Chronic Anemia likely both iron deficiency and chronic disease in setting of CKD, CHF, DM hemoglobin 8.8 (she is at baseline) MCV normocytic 06/25/2017: iron 17, 6% saturation, transferrin 182, ferritin 175 no obvious active bleeding -She takes ferrous sulfate at home. Goal hemoglobin 10 to 11 Qualifiers: Anemia type: due to chronic kidney disease Chronic kidney disease stage: stage 4 (severe) Qualified Code(s): N18.4 - Chronic kidney disease, stage 4 (severe); D63.1 - Anemia in chronic kidney disease (3) Hypertension Current Visit: No Status: Chronic History of hypertension with medications including losartan, clonidine, amlodipine stable Qualifiers: Hypertension type: essential hypertension Qualified Code(s): I10 - Essential (primary) hypertension (4) UTI (urinary tract infection) Current Visit: No Status: Acute She is frequent urinary tract infections with her last one being last week where she finished taking Bactrim. She still reports feeling like she has a urinary tract infection with dysuria and foul-smelling urine. She denies increased frequency and hematuria. -urinalysis: >1000 protein, leukocyte esterase positive, WBC, no casts seen -urine culture growing E. coli ESBL -patient receiving ertapenem Qualifiers: Urinary tract infection type: acute cystitis Hematuria presence: without hematuria Qualified Code(s): N30.00 - Acute cystitis without hematuria Subjective Principal diagnosis: Acute chronic renal failure Interval history: Patient seen and examined at bedside. She is alert and oriented times 3. She denies fever, chills, vomiting, abdominal pain, dysuria. She has no complaints at this time. Awaiting hepatitis B core lab tests before chair time will be approved by dialysis. Dialysis catheter has been adjusted by interventional radiology yesterday. Objective - Vital Signs Vital signs: Vital Signs Temp Pulse Resp BP Pulse Ox 03/14/18 07:54 98.3 F 78 18 181/79 91 03/14/18 03:31 98.2 F 81 18 181/80 95 03/13/18 23:20 98.7 F 88 18 187/81 96 03/13/18 18:52 98 F 93 17 178/89 95 03/13/18 16:42 98.2 F 82 18 167/69 96 03/13/18 11:43 98.4 F 79 18 160/78 97 Intake and Output 03/13/18 03/14/18 03/14/18 23:59 07:59 15:59 Intake Total 150 / 150 360 / 360 Output Total 300 / 300 150 / 150 Balance -150 / -150 -150 / -150 360 / 360 Intake: Oral 150 / 150 360 / 360 Output: Urine 300 / 300 150 / 150 Other: Meal Breakfast Percent of Meal Consumed 60% Stool Size Moderate Small Stool Consistency formed formed Stool Color Brown # Bowel Movements 1 1 Weight 151.6 kg Blood Glucose* 185 144 - General Appearance General appearance: Present: well-developed, well-nourished, appears started age EENT: Present: mucous membranes moist Neck: Present: supple Respiratory: Present: clear Cardiology: Present: edema (Mild bilateral), regular rate, regular rhythm Dialysis Vascular Access: Venous Catheter (Right-sided dialysis catheter) Gastrointestinal: Present: normoactive bowel sounds, no tenderness, no guarding Integumentary: Present: no rash, warm and dry Neurologic: Present: no focal deficit, no asterixis, alert and oriented x3 Musculoskeletal: Present: no deformities Psychiatric: Present: mood/affect appropriate, cooperative - Lab 03/14/18 04:37 03/14/18 04:37 Most recent lab results Calcium 8.5 mg/dL (8.6-10.3) L 03/14/18 04:37 Consult Discharge Plan - Plan Referrals: Bill Candelaria MD [Primary Care Provider] -
--- NOTE | 2018-03-14 17:58 | Internal Med Progress Note ---
Hospitalist Progress Note - Encounter Date of Encounter: 03/14/18 Time of Encounter: 17:53 - Subjective Interval History: Pt states she is constipated. Nurse states she has had colace 100 mg x 6 doses and still feels constipated. She denies vomiting but does report some nausea. She denies CP or SOB. She denies fever or chills. - Exam Vitals: Temp Pulse Resp BP Pulse Ox 98.7 F 92 18 165/81 93 03/14/18 16:24 03/14/18 16:24 03/14/18 16:24 03/14/18 16:24 03/14/18 16:24 Exam: Physical exam: Gen.: Non-acute distress, alert and oriented 3 ENT: Mucosal membranes moist Respiratory: Lungs are clear to auscultation bilaterally without any wheezing rhonchi or rales Cardiovascular: Normal S1 and S2 regular rate rhythm no murmurs rubs or gallops Abdomen: Soft, non-tender and non-distended with positive bowel sounds Extremities: No lower extremity edema Skin: no rash, bumps, or bruises. - Assessment and Plan (1) Renal failure (ARF), acute on chronic Current Visit: No Status: Chronic Assessment and Plan: Patient with acute on chronic CKD4 in addition to UTI Patient status post perm-a-cath placement on 03/09/18 and hemodialysis started on 03/09/18 Renal function continued to improve status post dialysis but Cr bumped today 03/12/2018 but down again 03/13/2018. Nephrology following and appreciate recommendations. Pt awaiting dialysis chair to be set up. Possible DC in am bif chair has been set up. (2) Benign hypertension with chronic kidney disease, stage III Current Visit: No Status: Acute Assessment and Plan: Controlled; continue clonidine, losartan and amlodipine. (3) Type 2 diabetes mellitus with diabetic chronic kidney disease Current Visit: No Status: Acute Assessment and Plan: Continue holding home dose of sulfonylurea. Pt's glucose has been stable. Has coverage with low-dose sliding scale insulin. (4) ESBL (extended spectrum beta-lactamase) producing bacteria infection Current Visit: Yes Status: Acute Assessment and Plan: Patient's urine culture positive for ESBL which is resistant to ceftriaxone Ceftriaxone was discontinued and pt was tarted on Zosyn which bacteria is sensitive to Discussed with pharmacy and was switched to Ertapenem but after discussion with ID he recommends Fosfomycin instead. Appreciate medical recommendation from infectious disease for Fosfomycin 1 packet Q 48 hours disp 3 to be given at discharge. (5) Anemia Current Visit: No Status: Chronic Assessment and Plan: Hemoglobin 8.8 this morning Suspect secondary to chronic kidney disease. Iron 17 L, % saturation 6% L, Ferritin 175 H, transferrin 192 L. (6) Acute cystitis Current Visit: Yes Status: Acute Assessment and Plan: Patient's urine culture positive for ESBL which is resistant to ceftriaxone Ceftriaxone was discontinued and pt was tarted on Zosyn which bacteria is sensitive to Discussed with pharmacy and was switched to Ertapenem but after discussion with ID he recommends Fosfomycin at discharge. Appreciate medical recommendation from infectious disease for Fosfomycin 1 packet Q 48 hours disp 3 to be given at discharge. DVT Prophylaxis: Heparin - Summary of Assessment and Plan Summary of Assessment and Plan: Susannah Rubin is an 82 year old female with a PMH of HTN, DM, gout, depression, and knee replacement who presented as a transfer from [facility] to [facility] on 02/13 08/30. Patient initially presented to [facility] for headache and body aches. Patient also complained of progressive weakness of several days duration. Known history of stage IV CKD; seen by nephrology in [place]. Patient is supposed to undergo dialysis training, and possibly start dialysis in the near future. Patient still produces urine with incontinence. Patient reports a headache, and feels like she has a fluid due to body aches. Patient denied having any other symptoms. No exacerbating or relieving factors. Vitals on presentation to [facility] were as follows: Blood pressure 145/70, temperature 97.9, pulse 90 bpm, respiratory rate 20/m, O2 saturation 95% on room air. Labs demonstrated a hemoglobin of 8.8. Platelets were low at 75. Creatinine was elevated at 4.41. Alkaline phosphatase elevated at 134. Influenza a and B were both negative. Patient was seen and examined at bedside; patient reports that she feels generalized weakness, and complains of a headache that has been present since her arrival. Patient describes headache as bilateral, located in's temporal area. Denies having any associated visual changes or lightheadedness. Pain is not exacerbated by bright lights. She denies having any fever, chills, nausea, vomiting, diarrhea, numbness, tingling, or paresthesias. No further complaints at this time. - Time Spent with Patient Total time spent is greater than 50% in coordination of care (as documented) at patient's floor/unit and/or counseling patient: less than 15 minutes Plan of Care Discussed with: patient Internal Medicine: Result - Labs CBC & Chem 7: 03/14/18 04:37 03/14/18 04:37 Labs: Short CBC 03/14/18 Range/Units 04:37 WBC 11.1 (4.3-11.1) K/mcL Hgb 8.8 L (11.5-15.4) g/dL Hct 27.1 L (35.3-44.9) % Plt Count 93 L (140-400) K/mcL BMP 03/14/18 04:37 Sodium 138 Potassium 4.0 Chloride 102 Carbon Dioxide 25 BUN 34 H Creatinine 4.16 H Glucose 121 H Calcium 8.5 L - ABG Interpretation ABG results: PT/INR, D-dimer PT 12.9 Seconds (9.4-12.1) H 03/07/18 23:08 - Impressions Impressions Head CT 03/08/18 03:00 IMPRESSION: No acute intracranial abnormality. Extensive chronic white matter microangiopathic ischemic changes. D/ / 03/08/2018 07:38:28 Bud Young MD / Shelby Nguyen Interpreting Provider: Bud Young MD Consult Discharge Plan - Plan Referrals: Bill Candelaria MD [Primary Care Provider] - (1) Renal failure (ARF), acute on chronic Qualifiers: Acute renal failure type: unspecified Chronic kidney disease stage: stage 4 (severe) Qualified Code(s): N17.9 - Acute kidney failure, unspecified; N18.4 - Chronic kidney disease, stage 4 (severe) (3) Type 2 diabetes mellitus with diabetic chronic kidney disease Qualifiers: Diabetes mellitus mcc insulin use: with mcc use Chronic kidney disease stage: stage 3 (moderate) Qualified Code(s): E11.22 - Type 2 diabetes mellitus with diabetic chronic kidney disease; N18.3 - Chronic kidney disease, stage 3 (moderate); Z79.4 - retirement (current) use of insulin (5) Anemia Qualifiers: Anemia type: due to chronic kidney disease Chronic kidney disease stage: stage 4 (severe) Qualified Code(s): N18.4 - Chronic kidney disease, stage 4 (severe); D63.1 - Anemia in chronic kidney disease
[2018-03-15] MEDS ORDERED: Desitin (Zinc Oxide) 56 GM TUBE TP PRN (04:35)
[2018-03-15 06:05] LABS: Mean Platelet Volume 10.1 fL (9.4-12.4); Red Cell Distribution Width 13.9 % (11.5-14.5)
[2018-03-15 06:07] LABS: Hematocrit 27.8 % (35.3-44.9); Mean Corpuscular HGB Conc 32.4 g/dL (31.6-35.5); Mean Corpuscular Hemoglobin 29.3 pg (28.0-33.3); Mean Corpuscular Volume 90.6 fL (83.0-100.0); Red Blood Count 3.07 M/mcL (3.82-4.97)
[2018-03-15 06:25] LABS: Calcium 8.7 mg/dL (8.6-10.3); Potassium 3.8 mEq/L (3.5-5.1)
[2018-03-15] MEDS: *HR* Heparin 5,000 UNIT/ML VIAL SQ SCH ×2 (06:52→17:33)
[2018-03-15] MEDS: Acetaminophen 325 MG TABLET PO PRN (10:13)
[2018-03-15] MEDS: Insulin LISPRO 300 UNITS/3 ML VIAL SQ SCH ×3 (10:13→17:33)
[2018-03-15] MEDS: amLODIPine 5 MG TABLET PO SCH (10:13)
[2018-03-15] MEDS: Aspirin Enteric Coated 81 MG Tablet PO SCH (10:13)
[2018-03-15] MEDS: cloNIDine HCl 0.1 MG TABLET PO SCH ×2 (10:13→17:32)
[2018-03-15] MEDS: Sennosides 8.6 MG TABLET PO SCH (10:14)
[2018-03-15] MEDS ORDERED: Lactobacillus 1 EACH CAP.SPRINK PO SCH (11:15)
--- NOTE | 2018-03-15 11:23 | Nephrology Progress Note ---
Date of Encounter: 03/15/18 Time of Encounter: 11:21 - Assessment and Plan (1) Acute on chronic kidney failure Current Visit: Yes Status: Acute She has dialysis dependent SAUL but given her pre-existing advanced CKD she may have also just progressed into ESRD. Waiting for chair time at [facility] Interestingly she shares that our group took care of her brother when he was going to [facility] for dilaysis Renal diet-ordered Continue strict I/Os Avoid nephrotoxins if possible Qualifiers: Acute renal failure type: unspecified Chronic kidney disease stage: stage 4 (severe) Qualified Code(s): N17.9 - Acute kidney failure, unspecified; N18.4 - Chronic kidney disease, stage 4 (severe) (2) HTN (hypertension) Current Visit: Yes Status: Chronic 186/83 per primary team Qualifiers: Qualified Code(s): I10 - Essential (primary) hypertension (3) UTI (urinary tract infection) Current Visit: No Status: Acute per primary team Qualifiers: Urinary tract infection type: acute cystitis Hematuria presence: without hematuria Qualified Code(s): N30.00 - Acute cystitis without hematuria Subjective Principal diagnosis: Acute chronic renal failure Interval history: Patient seen and examined. States she is switching from Dr Posey to our group and will be going to [facility] for her outpatient dialysis. Objective - Vital Signs Vital signs: Vital Signs Temp Pulse Resp BP Pulse Ox 03/15/18 06:37 98.4 F 90 16 186/83 95 03/15/18 04:11 97.8 F 87 16 177/82 96 03/14/18 23:29 98.5 F 88 16 165/82 90 03/14/18 19:40 98.1 F 83 16 173/82 92 03/14/18 16:24 98.7 F 92 18 165/81 93 03/14/18 12:52 98.1 F 18 152/81 03/14/18 12:30 147/81 03/14/18 12:15 135/84 03/14/18 12:00 161/96 03/14/18 11:45 177/101 03/14/18 11:30 165/96 Intake and Output 03/14/18 03/15/18 03/15/18 23:59 07:59 15:59 Other: Stool Size Large Large Stool Consistency loose loose liquid liquid Stool Color Brown Brown # Bowel Movements 1 # Bowel Movement Diapers 1 1 Weight 152.3 kg Blood Glucose* 124 129 - General Appearance General appearance: Present: well-developed, well-nourished, obese EENT: Present: ATNC, mucous membranes moist, hearing intact, vision intact Neck: Present: supple Respiratory: Present: clear Cardiology: Present: no edema, normal S1, normal S2 Dialysis Vascular Access: Venous Catheter Gastrointestinal: Present: no tenderness, no guarding Integumentary: Present: warm and dry Neurologic: Present: alert and oriented x3 Psychiatric: Present: mood/affect appropriate, cooperative - Lab 03/15/18 05:50 03/15/18 05:50 Most recent lab results Calcium 8.7 mg/dL (8.6-10.3) 03/15/18 05:50 Consult Discharge Plan - Plan Referrals: Bill Candelaria MD [Primary Care Provider] -
[2018-03-15 15:23] VITALS: BP 156/75
--- NOTE | 2018-03-15 15:25 | Event Note ---
Date of Encounter: 03/15/18 Time of Encounter: 15:20 Evaluated and examined patient earlier today. She was lying down in bed. Had eaten breakfast. Complains of diarrhea. She had previously been constipated and received laxatives. Does have some abdominal cramps. No nausea or vomiting. No chest pain or palpitations. On exam, patient is awake and alert. Abdomen is soft, nontender. Hyperactive bowel sounds audible. S1 and S2 normal. Patient has decreased breath sounds at both bases. Mild pedal edema. Acute on chronic renal failure now with end-stage renal disease on hemodialysis: Continue dialysis per nephrology recommendations. Awaiting outpatient dialysis care set up. Essential hypertension: Blood pressure remains elevated. Patient is on amlodipine, losartan, clonidine. We will increase losartan dosage. ESBL Escherichia coli UTI: Patient is receiving ertapenem. Plan to discharge on Fosamax when she is stable to be discharged. Diarrhea: Although patient has been on antibiotics, she is also been receiving laxatives. This likely contributed to her diarrhea. We will stop laxatives. Place patient on lactobacillus. Anemia: Stable. Hemoglobin 9. Due to chronic kidney disease. Thrombocytopenia: Chronic. Platelet count 98. Moderate risk for complications.
--- NOTE | 2018-03-15 15:33 | Discharge Summary ---
<Le Maurer E - Last Filed: 03/15/18 16:11> Orders not resulted at time of discharge: Pending orders 03/12/18 19:04 Hepatitis B Core Ab Total Routine 03/16/18 04:00 Basic Metabolic Panel AM 0400 CBC no Diff [Complete Blood Count w/o Diff] [HEME] AM 0400 Date of Encounter: 03/15/18 Time of Encounter: 09:00 - Discharge Diagnosis (1) End stage renal disease Priority: Secondary Status: Chronic (2) T2DM (type 2 diabetes mellitus) Priority: Secondary Status: Chronic Qualifiers: Qualified Code(s): E11.22 - Type 2 diabetes mellitus with diabetic chronic kidney disease; N18.6 - End stage renal disease; Z99.2 - Dependence on renal dialysis (3) Acute cystitis Priority: Primary Status: Acute Qualifiers: Qualified Code(s): N30.00 - Acute cystitis without hematuria (4) ESBL (extended spectrum beta-lactamase) producing bacteria infection Priority: Primary Status: Acute (5) Anemia Priority: Secondary Status: Chronic Qualifiers: Anemia type: due to chronic kidney disease Chronic kidney disease stage: stage 4 (severe) Qualified Code(s): N18.4 - Chronic kidney disease, stage 4 (severe); D63.1 - Anemia in chronic kidney disease (6) Hypertension Priority: Secondary Status: Chronic Qualifiers: Hypertension type: essential hypertension Qualified Code(s): I10 - Essential (primary) hypertension Hospital course: Ms. Rubin is a 77 year old female with a PMH of HTN, DM, gout, depression, and knee replacement who presented as a transfer from [facility] to [facility] on 03/07/18. Patient initially presented to [facility] for headache and body aches. Patient also complained of progressive weakness of several days duration. Known history of stage IV CKD; seen by nephrology in [place]. She began receiving dialysis on 02/17. She has been receiving Ertapenem for ESBL will start fosfomycin 3g Q48 for 3 doses. She had some diarrhea in the morning but this has resolved after discontinuing constipation medications. She was also started on lactobacillous and will be sent home with some PRN medications for her occational constipation. She now has a chair time at [facility] in [place], awaiting transport. Discharge discussed with: patient - Time Spent with Patient Total time spent providing and/or coordinating discharge services: - Discharge Medications Prescriptions: Docusate Sodium [Colace] 100 mg PO PRN PRN #14 capsule PRN Reason: Constipation Fosfomycin Tromethamine [Monurol] 3 gm PO Q48H #3 packet Lactobacillus [Culturelle] 1 each PO BID #20 cap.sprink Home Medications: Allopurinol [Zyloprim 100 MG] 200 mg PO DAILY 05/13/15 [History] amLODIPine [Norvasc] 5 mg PO DAILY 05/13/15 [History] GlipiZIDE XL (24 HR) [Glucotrol XL] 2.5 mg PO DAILY 03/22/16 [History] Lovastatin [Mevacor] 40 mg PO HS 03/22/16 [History] [place]-3/Dha/Epa/Fish Oil [Fish Oil 1,000 mg Softgel] 1 cap PO DAILY 03/22/16 [History] Venlafaxine [Effexor] 75 mg PO BID 03/22/16 [History] Aspirin Enteric Coated [Aspirin EC] 81 mg PO DAILY #30 tablet.dr 03/25/16 [Rx] cloNIDine HCl [CloNIDine HCl] 0.1 mg PO BID 06/24/17 [History] Cetirizine HCl 10 mg PO DAILY 06/25/17 [History] HYDROcodone/Acet 5/325 mg [[place] 5-325 mg] 1 tab PO Q8H PRN 06/25/17 [History] Ferrous Sulfate 325 mg PO BIDWM #60 tablet 06/27/17 [Rx] Omeprazole [PriLOSEC] 40 mg PO DAILY #30 cap 06/27/17 [Rx] Cholecalciferol (D-3) [Vitamin D] 1,000 unit PO DAILY 03/08/18 [History] Losartan [Cozaar] 25 mg PO DAILY 03/08/18 [History] Docusate Sodium [Colace] 100 mg PO PRN PRN #14 capsule 03/15/18 [Rx] Fosfomycin Tromethamine [Monurol] 3 gm PO Q48H #3 packet 03/15/18 [Rx] Lactobacillus [Culturelle] 1 each PO BID #20 cap.sprink 03/15/18 [Rx] Allergies/Adverse Reactions: Allergy/AdvReac Type Severity Reaction Status Date / Time No Known Allergies Allergy Verified 03/08/18 15:00 Date of admission: 03/08/18 16:44 Primary care physician: Bill Candelaria MD Consults: 03/08/18 02:56 Consult to Nephrology [CONS] Routine Consulting Provider: Kidney Salud/LISSA/TIFFANIE/ORI Reason for Consult: acute on chronic renal failure Call Completed: No 03/09/18 07:11 Consult to Interventional Radiology [CONS] Routine Consulting Provider: Radiology Interventional Cols Reason for Consult: Please evaluate for placement of a Permacath. Thank you Call Completed: No 03/09/18 07:15 Consult to Dialysis [CONS] ONCE 03/10/18 07:30 Consult to Dialysis [CONS] ONCE 03/12/18 06:45 Consult to Dialysis [CONS] ONCE 03/12/18 09:08 Consult to 2[employer] Grade Teacher [CONS] Routine Reason for SW Consult: pt needs chair time, new HD 03/12/18 20:23 Consult to Interventional Radiology [CONS] Routine Consulting Provider: Radiology Interventional Cols Reason for Consult: Patient had x-ray done as precursor for dialysis chair time. Radiology called to inform that there is a slight interval retraction of the tunneled dialysis catheter that is now terminating in the superior vena cava and will need to be replaced positionally by IR Call Completed: Yes 03/14/18 07:30 Consult to Dialysis [CONS] ONCE Discharging clinician: Tisha Deleon Anticipated date of discharge: 03/15/18 - Constitutional Vitals: Temp Pulse Resp BP Pulse Ox 99.3 F 82 16 156/75 97 03/15/18 15:22 03/15/18 15:22 03/15/18 15:22 03/15/18 15:22 03/15/18 15:22 Exam: General: AAOx3, answers questions appropriately CArdio: RRR, no murmurs, rubs, or gallops Pulm: CTAB, no wheezes, or rales Extremities: no pedal edema, pulses equal bialterally Skin: warm, dry, intact - Patient Status Disposition: Home, Self-Care Condition: Good Functional capacity at discharge: independent ambulation Overall status at discharge: patient is progressing back to baseline - Discharge Instructions Instructions: End-Stage Kidney Disease (GEN) Follow Up With: Yves Dobbins MD [Partnered Physician] - (follow up on your Dialysis days) Bill Candelaria MD [Primary Care Provider] - (Please call and schedule a hospit al follow up for 5-7 days ) Additional Instructions: Take antibiotic as prescribed Take lactobacillous as prescribed Colase for constipation as needed Follow up with Nephrology adn your Rachel Santacruz for dialysis. - Diet and Activity Activity: increase activity as tolerated Diet: advance to your usual diet <Tisha Deleon - Last Filed: 03/15/18 16:46> - NOTES TO OUTPATIENT PROVIDER Notes to Outpatient Provider: Patient hospitalized for acute kidney injury on chronic kidney disease stage IV. Had progression of chronic kidney disease and was started on hemodialysis per nephrology recommendations. She is now stable to be discharged home and will continue dialysis after discharge. She also developed acute cystitis with ESBL Escherichia coli. Was started on ertapenem here but per infectious disease recommendations will be discharged on fosfomycin. Patient has had uncontrolled hypertension here in her antihypertensive regimen has been adjusted accordingly. She will now be discharged on amlodipine 10 mg daily along with Klonopin 0.1 mg 3 times a day and losartan 100 mg daily. She will follow up with nephrology as outpatient for further management. Orders not resulted at time of discharge: Pending orders 03/12/18 19:04 Hepatitis B Core Ab Total Routine 03/16/18 04:00 Basic Metabolic Panel AM 0400 CBC no Diff [Complete Blood Count w/o Diff] [HEME] AM 0400 Date of Encounter: 03/15/18 Time of Encounter: 16:42 - Discharge Diagnosis (1) Renal failure (ARF), acute on chronic Status: Chronic Qualifiers: Acute renal failure type: unspecified Chronic kidney disease stage: stage 4 (severe) Qualified Code(s): N17.9 - Acute kidney failure, unspecified; N18.4 - Chronic kidney disease, stage 4 (severe) (2) Anemia Status: Chronic Qualifiers: Anemia type: due to chronic kidney disease Chronic kidney disease stage: stage 4 (severe) Qualified Code(s): N18.4 - Chronic kidney disease, stage 4 (severe); D63.1 - Anemia in chronic kidney disease (3) Benign hypertension with chronic kidney disease, stage III Status: Acute (4) Type 2 diabetes mellitus with diabetic chronic kidney disease Status: Acute Qualifiers: Diabetes mellitus local intermodal truck driver insulin use: with local intermodal truck driver use Chronic kidney disease stage: stage 3 (moderate) Qualified Code(s): E11.22 - Type 2 diabetes mellitus with diabetic chronic kidney disease; N18.3 - Chronic kidney disease, stage 3 (moderate); Z79.4 - jail (current) use of insulin (5) ESBL (extended spectrum beta-lactamase) producing bacteria infection Status: Acute (6) Acute cystitis Status: Acute Qualifiers: Qualified Code(s): N30.00 - Acute cystitis without hematuria Hospital course: Ms. Rubin is a 77 year old female - Time Spent with Patient Total time spent providing and/or coordinating discharge services: Date of admission: 03/08/18 16:44 Primary care physician: Bill Candelaria MD Consults: 03/08/18 02:56 Consult to Nephrology [CONS] Routine Consulting Provider: Kidney Salud/LISSA/TIFFANIE/ORI Reason for Consult: acute on chronic renal failure Call Completed: No 03/09/18 07:11 Consult to Interventional Radiology [CONS] Routine Consulting Provider: Radiology Interventional Cols Reason for Consult: Please evaluate for placement of a Permacath. Thank you Call Completed: No 03/09/18 07:15 Consult to Dialysis [CONS] ONCE 03/10/18 07:30 Consult to Dialysis [CONS] ONCE 03/12/18 06:45 Consult to Dialysis [CONS] ONCE 03/12/18 09:08 Consult to [employer] Grade Teacher [CONS] Routine Reason for SW Consult: pt needs chair time, new HD 03/12/18 20:23 Consult to Interventional Radiology [CONS] Routine Consulting Provider: Radiology Interventional Cols Reason for Consult: Patient had x-ray done as precursor for dialysis chair time. Radiology called to inform that there is a slight interval retraction of the tunneled dialysis catheter that is now terminating in the superior vena cava and will need to be replaced positionally by IR Call Completed: Yes 03/14/18 07:30 Consult to Dialysis [CONS] ONCE - Constitutional Vitals: Temp Pulse Resp BP Pulse Ox 99.3 F 82 16 156/75 97 03/15/18 15:22 03/15/18 15:22 03/15/18 15:22 03/15/18 15:22 03/15/18 15:22 - Attending Attestation I saw evaluated and examined this patient and my medical decision-making was reviewed with the Resident Physician, Le Maurer. I agree with the documented findings, disposition and treatment plan as described except to any changes set forth below. We independently had [id number] contact with the patient. Patient is awake and alert. Abdomen is soft, nontender. Patient has right IJ tunneled catheter. Mild bilateral pedal edema.
== END 2018-03-15 19:18 | disposition home or self-care (01) | DRG 674 ==
LOC: 2ANU → SUATTDRO 22:23
PROVIDERS: ADMIT Internal Medicine; ATTEND Internal Medicine
PROC: IRPERMA (2018-03-09 12:00)

== ENCOUNTER 2018-09-03 20:27 | Inpatient (IN) ==
[2018-09-04 02:32] LABS: Potassium 4.7 mEq/L (3.5-5.1)
[2018-09-04] MEDS ORDERED: D5% in Water 1,000 ML IVC PRN (03:08)
[2018-09-04] MEDS ORDERED: *HR* Dextrose 50 % in Water (Syg) 50 ML SYRINGE IVP PRN (03:08)
[2018-09-04] MEDS ORDERED: Naloxone 0.4 MG/ML INJ IVP PRN (03:08)
[2018-09-04] MEDS ORDERED: Dextrose Gel 15 GM/37.5 ML TUBE PO PRN ×2 (03:08)
[2018-09-04] MEDS ORDERED: Acetaminophen 325 MG TABLET PO PRN (03:09)
[2018-09-04] MEDS ORDERED: Ondansetron 4 MG/2 ML VIAL IVP PRN (03:09)
[2018-09-04] MEDS ORDERED: *HR* HYDROcodone/Acet 5/325 mg TABLET PO PRN (03:09)
--- NOTE | 2018-09-04 03:31 | Internal Med History&Physical ---
Date of Encounter: 09/04/18 Time of Encounter: 02:05 Internal Medicine - H&P: HPI Chief complaint: abdominal pain; missed dialysis Admitted From: Hospital to Hospital Transfer Plans for Post Hospital Care: Home History of present illness: Ms. Rubin is a 77 year old female who presents in transfer from [facility] for concerns of colitis, hyperkalemia, and missed dialysis. Upon my assessment of the patient shortly after she arrived, she is lying in bed comfortably. She is a very poor historian and offers very little history. I asked her repeatedly if she had any abdominal pain, nausea, vomiting, diarrhea, constipation, poor appetite and fluid intake, or any generalized pain. She denied all the above. I inquired as to why she came in the hospital and she could not elaborate. I then started to examine her and she informed me that she had severe pain in her side pointing to her left lower quadrant of her abdomen. I asked her if this was why she was seen at [facility], and she said yes. She then went on to state that she has not had a bowel movement in a few days and has been constipated. She has had increasing pain in her side/abdomen on the left side. She states she missed her dialysis on Monday because she did not feel well. She feels as though she is getting fluid overloaded. She denies any chest pain or shortness of breath presently. No further history can be obtained from the patient. Upon review of the [facility] records, she had a CAT scan performed of her abdomen, which revealed diffuse inflammatory changes of the colon on the descending and sigmoid colon with concern for possible peritonitis. Radiology also is concerned that this could be an inflammatory malignancy. Past Med Surg Social Fam HX - Past Medical History Source: patient, old records reviewed, other (limited [facility] records) Medical history: diabetes, hyperlipidemia, hypertension, renal disease Additional medical history: CKD. PELVIC MASS. ANEMIA. CATARACTS. GOUT Psychiatric history: depression - Past Surgical History Surgical History: appendectomy, cataract, cholecystectomy, hysterectomy, knee replacement, orthopedic, other Additional surgical history: cataract surg bilateral eyes - Social History Smoking Status: Never smoker Smokeless Tobacco Status: No Alcohol use: none Drug use: none Current living situation: Home - Family History Mother Living Status: Hx Family Endocrine Disorder: Yes (DM) Father Living Status: Internal Medicine - H&P: Meds Allopurinol [Zyloprim 100 MG] 200 mg PO DAILY 05/13/15 [History] GlipiZIDE XL (24 HR) [Glucotrol XL] 2.5 mg PO DAILY 03/22/16 [History] Lovastatin [Mevacor] 40 mg PO HS 03/22/16 [History] [place]-3/Dha/Epa/Fish Oil [Fish Oil 1,000 mg Softgel] 1 cap PO DAILY 03/22/16 [History] Venlafaxine [Effexor] 75 mg PO BID 03/22/16 [History] Aspirin Enteric Coated [Aspirin EC] 81 mg PO DAILY #30 tablet. 03/25/16 [Rx] Cetirizine HCl 10 mg PO DAILY 06/25/17 [History] HYDROcodone/Acet 5/325 mg [[place] 5-325 mg] 1 tab PO Q8H PRN 06/25/17 [History] Ferrous Sulfate 325 mg PO BIDWM #60 tablet 06/27/17 [Rx] Omeprazole [PriLOSEC] 40 mg PO DAILY #30 cap 06/27/17 [Rx] Cholecalciferol (D-3) [Vitamin D] 1,000 unit PO DAILY 03/08/18 [History] CloNIDine HCl [Kapvay] 0.1 mg PO Q8H #90 tab.er.12h 03/15/18 [Rx] Docusate Sodium [Colace] 100 mg PO PRN PRN #14 capsule 03/15/18 [Rx] Fosfomycin Tromethamine [Monurol] 3 gm PO Q48H #3 packet 03/15/18 [Rx] Lactobacillus [Culturelle] 1 each PO BID #20 cap.sprink 03/15/18 [Rx] Losartan Potassium [Cozaar] 100 mg PO DAILY #30 tab 03/15/18 [Rx] amLODIPine [Norvasc] 10 mg PO DAILY #30 tablet 03/15/18 [Rx] Allergy/AdvReac Type Severity Reaction Status Date / Time No Known Allergies Allergy Verified 03/08/18 15:00 Review of systems: ROS seems unreliable but detailed anyway - Constitutional Constitutional: chills, no fever(s), no night sweats - EENT Eyes: no change in vision Ears: no ear pain Nose, mouth and throat: no nasal congestion, no sore throat - Cardiovascular Cardiovascular ROS IM: edema, no chest pain, no dyspnea, no dyspnea on exertion - Respiratory Respiratory: no cough, no chest congestion - Gastrointestinal Gastrointestinal: abdominal pain, constipation, nausea, no diarrhea, no hematemesis, no hematochezia, no melena, no vomiting - Musculoskeletal Musculoskeletal ROS IM: no arthralgias, no back pain - Integumentary Integumentary IM: no rash, no jaundice - Neurological Neurological ROS: no dizziness, no focal weakness, no frequent falls, no head ache(s) - Psychiatric Psychiatric: no anxiety, no depression - Endocrine Endocrine IM: no cold intolerance, no heat intolerance, no polydipsia, no polyuria - Allergic/Immunologic Allergic/Immunologic: no GI upset with certain foods - Constitutional Vitals: Temp Pulse Resp BP Pulse Ox 98.7 F 86 18 135/68 92 09/04/18 00:14 09/04/18 00:14 09/04/18 00:14 09/04/18 00:14 09/04/18 00:14 General appearance: Present: cooperative, A&O X 3, pleasant, answers questions appropriately Exam: appears to be in no acute distress - Head Head exam: Present: atraumatic, normal inspection - Eye Eye exam: Present: EOMI, PERRL. Absent: scleral icterus Pupils: Present: normal accommodation - ENT ENT exam: Present: mucous membranes dry, normal exam, normal oropharynx - Neck Neck exam general surgery: Present: full ROM, supple, trachea midline. Absent: tenderness, nuchal rigidity, thyromegaly - Respiratory Respiratory exam: Present: CTAB. Absent: chest wall tenderness, rales, rhonchi, wheezes - Cardiovascular Cardiovascular exam: Present: distant heart sounds, RRR, +S1, +S2. Absent: diastolic murmur, systolic murmur - GI/Abdominal GI/Abdominal exam: Present: normal bowel sounds, soft, tenderness (minimal LLQ pain upon palpation), no peritoneal signs. Absent: guarding, hepatomegaly, rebound, splenomegaly - Extremities Exam Extremities exam: Present: full ROM, tenderness (1-2+), warm, radial pulses palpable and symmetrical. Absent: calf tenderness, pedal edema - Back Exam Back exam: Absent: CVA tenderness (L), CVA tenderness (R) - Neurological Exam Neurological exam: Present: alert, CN II-XII intact, oriented X3, no focal deficits, strengths equal and symetr throughout - Psychiatric Psychiatric exam: Present: normal affect, normal mood - Skin Skin exam: Present: dry, intact, warm Internal Med - H&P Results - Labs CBC & Chem 7: 09/04/18 01:19 Labs: BMP 09/04/18 01:19 Sodium 137 Potassium 4.7 Chloride 98 Carbon Dioxide 26 BUN 74 H Creatinine 6.72 H Glucose 176 H Calcium 9.0 I reviewed her labs from [facility] and include the following: Sodium 137 Potassium 5.5 Chloride 99 CO2 28 BUN 73 Glucose 92 Creatinine 6.76 WBC 9.4 Hemoglobin 9.2 Hematocrit 21.9 Platelets 166 - Assessment and Plan (1) Colitis Current Visit: Yes Status: Acute Assessment and plan: 1. Will order blood cultures and stool GI panel. 2. Patient admits to concurrent antibiotic use (Keflex) but is unsure why she is taking it. 3. Will order IV Flagyl and Cipro (renal dosing) to cover GI davey. 4. Consult GI for follow up and colonoscopy when clinically indicated. (2) ESRD (end stage renal disease) on dialysis Current Visit: Yes Status: Chronic Assessment and plan: 1. Monitor electrolytes and renal function closely. 2. Consult nephrology for dialysis needs. 3. Clinically, patient appears to be mildly fluid overloaded but in no respiratory distress. (3) Diabetes mellitus Current Visit: Yes Status: Chronic Assessment and plan: 1. Hold oral home meds. 2. Will order SSI and monitor glucose closely. 3. Patient may need basal insulin as well. Qualifiers: Diabetes mellitus type: type 2 Diabetes mellitus detention insulin use: unspecified detention insulin use status Diabetes mellitus complication status: with unspecified complications Qualified Code(s): E11.8 - Type 2 diabetes mellitus with unspecified complications (4) HTN (hypertension) Current Visit: Yes Status: Chronic Assessment and plan: 1. Need to verify home meds and resume as appropriate. 2. Will order Hydralazine PRN for BP control. Qualifiers: Hypertension type: essential hypertension Qualified Code(s): I10 - Essential (primary) hypertension (5) DVT prophylaxis Current Visit: Yes Status: Acute Assessment and plan: 1. Heparin SQ.
[2018-09-04] MEDS: Insulin LISPRO 300 UNITS/3 ML VIAL SQ SCH ×3 (06:06→18:09)
[2018-09-04] MEDS: Pantoprazole 40 MG VIAL IVP SCH (06:06)
[2018-09-04] MEDS: *HR* Heparin 5,000 UNIT/ML VIAL SQ SCH ×2 (06:06→16:50)
[2018-09-04 07:29] LABS: Basophils % 0.4 %; Eosinophils # 0.3 K/mcL (0.0-0.6); Eosinophils % 4.2 %; Hematocrit 28.9 % (35.3-44.9); Hemoglobin 8.9 g/dL (11.5-15.4); Immature Granulocytes % 0.5 % (0-4); Lymphocytes # 1.2 K/mcL (0.6-4.6); Lymphocytes % 14.5 %; Mean Corpuscular HGB Conc 30.8 g/dL (31.6-35.5); Mean Corpuscular Volume 94.1 fL (83.0-100.0); Mean Platelet Volume 9.5 fL (9.4-12.4); Monocytes % 12.3 %; Neutrophils # 5.4 K/mcL (1.6-8.9); Platelet Count 153 K/mcL (140-400); Red Blood Count 3.07 M/mcL (3.82-4.97); Red Cell Distribution Width 15.2 % (11.5-14.5); Segmented Neutrophils % 68.1 %
[2018-09-04 07:40] LABS: INR 1.1; Prothrombin Time 12.3 Seconds (9.4-12.1)
[2018-09-04 07:43] LABS: Activated Partial Thrombo Time 31.3 Seconds (26.0-36.0)
[2018-09-04 08:31] LABS: Hepatitis B Surface Antibody < 3.10 mIU/mL
[2018-09-04] MEDS ORDERED: 0.9 % Sodium Chloride 250 ML IVC PRN (08:41)
[2018-09-04 08:42] LABS: Hepatitis B Surface Antigen Nonreactive (Nonreactive)
[2018-09-04] MEDS ORDERED: 0.9 % Sodium Chloride 1,000 ML PRIME SCH (08:45)
[2018-09-04 09:04] LABS: Estimated Average Glucose 126 mg/dl
[2018-09-04] MEDS: MetroNIDAZOLE 500 MG/100 ML 500 MG/100 ML BAG IVPB SCH ×3 (09:05→16:51)
--- NOTE | 2018-09-04 13:12 | Event Note ---
Date of Encounter: 09/04/18 Time of Encounter: 13:10 Patient was examined and reviewed the note. She missed dialysis yesterday that she get at [place] that because she was not feeling good because of abdominal pain. Consulted nephrology. Also consulted GI specialist with abnormal CT abdomen. Will continue to have treat patient with supportively with IV fluids antiemetic and antibiotics. GI panel ordered.
--- NOTE | 2018-09-04 15:42 | Nephrology Consult Note ---
Date of Encounter: 09/04/18 Time of Encounter: 15:42 Assessment and Plan (1) ESRD (end stage renal disease) on dialysis Current Visit: Yes Status: Chronic HD MWF. Renal vitamins. Renal dose medications. Renal diet. Additional dialysis and ultrafiltration as needed. 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 Araiza is a 77-year-old woman with a history of end-stage renal disease who presents secondary to abdominal pain. She was admitted for concern for colitis. For additional details see the admission H&P. The patient was seen on dialysis. She denies chest pain or shortness of breath. Past Med Surg Social Fam HX - Past Medical History Medical history: diabetes, hyperlipidemia, hypertension, renal disease Additional medical history: CKD. PELVIC MASS. ANEMIA. CATARACTS. GOUT Psychiatric history: depression - Past Surgical History Surgical History: appendectomy, cataract, cholecystectomy, hysterectomy, knee replacement, orthopedic, other Additional surgical history: cataract surg bilateral eyes - Social History Smoking Status: Never smoker Smokeless Tobacco Status: No Alcohol use: none Drug use: none - Family History Mother Living Status: Hx Family Endocrine Disorder: Yes (DM) Father Living Status: Medications and Allergies Allopurinol [Zyloprim 100 MG] 200 mg PO DAILY 05/13/15 [History] GlipiZIDE XL (24 HR) [Glucotrol XL] 2.5 mg PO DAILY 03/22/16 [History] Venlafaxine [Effexor] 75 mg PO TIDWM 03/22/16 [History] Aspirin Enteric Coated [Aspirin EC] 81 mg PO DAILY #30 tablet.dr 03/25/16 [Rx] Cetirizine HCl 10 mg PO DAILY 06/25/17 [History] HYDROcodone/Acet 5/325 mg [[place] 5-325 mg] 1 tab PO Q8H PRN 06/25/17 [History] Ferrous Sulfate 325 mg PO BIDWM #60 tablet 06/27/17 [Rx] Omeprazole [PriLOSEC] 40 mg PO DAILY #30 cap 06/27/17 [Rx] Lactobacillus [Culturelle] 1 each PO BID #20 cap.sprink 03/15/18 [Rx] Cholecalciferol (Vitamin D3) [Dialyvite Vitamin D] 10,000 unit PO DAILY 09/04/18 [History] Docusate Sodium [Colace] 100 mg PO DAILY PRN 09/04/18 [History] Losartan Potassium 25 mg PO DAILY 09/04/18 [History] Lovastatin 40 mg PO DAILY 09/04/18 [History] amLODIPine [Norvasc] 5 mg PO DAILY 09/04/18 [History] cloNIDine HCl [CloNIDine HCl] 0.1 mg PO BID 09/04/18 [History] Allergy/AdvReac Type Severity Reaction Status Date / Time No Known Allergies Allergy Verified 09/04/18 13:13 Review of Systems All Systems: reviewed and no additional remarkable complaints except as stated (As per history of present illness) Exam - Vital Signs Vital signs: Initial Vital Signs Temp Pulse Resp BP Pulse Ox 98.7 F 86 18 135/68 92 09/04/18 00:14 09/04/18 00:14 09/04/18 00:14 09/04/18 00:14 09/04/18 00:14 Intake and Output 09/03/18 09/04/18 09/04/18 23:59 07:59 15:59 Intake Total 0 / 0 0 / 0 Output Total 0 / 0 Balance 0 / 0 0 / 0 Intake: Oral 0 / 0 0 / 0 Output: Urine 0 / 0 Other: Meal npo Percent of Meal Consumed 0% Stool Size Large Stool Consistency formed Stool Characteristics Normal for Patient Stool Color Brown # Voids 2 # Bowel Movements 1 Weight 139.4 kg Blood Glucose* 170 Patient Weight 09/04/18 23:59 Weight 139.4 kg - General Appearance General appearance: well-developed, well-nourished EENT: ATNC Neck: supple Respiratory: course breath sounds Cardiology: edema, regular rate Integumentary: warm and dry Neurologic: alert and oriented x3 Musculoskeletal: no cyanosis Psychiatric: mood/affect appropriate Results - Lab Results 09/05/18 Unknown 09/05/18 Unknown Most recent lab results Calcium 9.0 mg/dL (8.6-10.3) 09/04/18 01:19 Consult Discharge Plan - Plan Referrals: Bill Candelraia MD [Primary Care Provider] -
--- NOTE | 2018-09-04 16:43 | Event Note ---
Date of Encounter: 09/04/18 Time of Encounter: 13:00 Attempted to see patient several times today, but patient was out of room Reviewed chart with Dr. Orozco. CT A/P at [facility] showed inflammatory changes in descending and sigmoid colon concerning for peritonitis vs inflammatory malignancy. Continue Cipro and Flagyl. Start clear liquid diet. Will hold on colonoscopy for now. Full consult tomorrow.
[2018-09-04] MEDS: cloNIDine HCl 0.1 MG TABLET PO SCH ×2 (16:51→21:20)
[2018-09-05] MEDS: Insulin LISPRO 300 UNITS/3 ML VIAL SQ SCH ×4 (00:18→18:19)
[2018-09-05] MEDS: MetroNIDAZOLE 500 MG/100 ML 500 MG/100 ML BAG IVPB SCH ×3 (00:20→18:34)
[2018-09-05 04:06] LABS: Basophils % 0.4 %; Eosinophils # 0.3 K/mcL (0.0-0.6); Eosinophils % 3.8 %; Hematocrit 28.2 % (35.3-44.9); Hemoglobin 8.7 g/dL (11.5-15.4); Immature Granulocytes % 0.3 % (0-4); Lymphocytes # 1.6 K/mcL (0.6-4.6); Lymphocytes % 23.5 %; Mean Corpuscular HGB Conc 30.9 g/dL (31.6-35.5); Mean Corpuscular Hemoglobin 28.6 pg (28.0-33.3); Mean Corpuscular Volume 92.8 fL (83.0-100.0); Mean Platelet Volume 9.4 fL (9.4-12.4); Monocytes # 0.9 K/mcL (0.0-1.3); Monocytes % 12.3 %; Neutrophils # 4.1 K/mcL (1.6-8.9); Platelet Count 153 K/mcL (140-400); Red Blood Count 3.04 M/mcL (3.82-4.97); Red Cell Distribution Width 14.8 % (11.5-14.5); Segmented Neutrophils % 59.7 %
[2018-09-05 04:27] LABS: Calcium 8.7 mg/dL (8.6-10.3); Potassium 4.5 mEq/L (3.5-5.1)
[2018-09-05] MEDS: Pantoprazole 40 MG VIAL IVP SCH (06:02)
[2018-09-05] MEDS: *HR* Heparin 5,000 UNIT/ML VIAL SQ SCH ×2 (06:03→18:34)
[2018-09-05] MEDS ORDERED: 0.9 % Sodium Chloride 250 ML IVC PRN (07:43)
[2018-09-05] MEDS ORDERED: 0.9 % Sodium Chloride 1,000 ML PRIME SCH (07:45)
[2018-09-05] MEDS ORDERED: *HR* HYDROcodone/Acet 5/325 mg TABLET PO PRN (08:01)
[2018-09-05] MEDS ORDERED: 0.9 % Sodium Chloride 2,000 ML ONE (08:09)
[2018-09-05 10:28] LABS: Hematocrit 29.7 % (35.3-44.9); Hemoglobin 9.4 g/dL (11.5-15.4); Mean Corpuscular HGB Conc 31.6 g/dL (31.6-35.5); Mean Corpuscular Volume 91.7 fL (83.0-100.0); Mean Platelet Volume 9.4 fL (9.4-12.4); Platelet Count 156 K/mcL (140-400); Red Blood Count 3.24 M/mcL (3.82-4.97); Red Cell Distribution Width 14.6 % (11.5-14.5)
--- NOTE | 2018-09-05 12:50 | Internal Med Progress Note ---
Hospitalist Progress Note - Encounter Date of Encounter: 09/05/18 Time of Encounter: 10:00 - Subjective Interval History: H&P reviewed. Patient with history of ESRD on dialysis MWF was admitted for the concern of colitis. CT scan done at the outside facility showed diffuse inflammatory changes of the colon on the descending and sigmoid colon. Pt had la rge, solid BM yesterday and states that her pain is somewhat better afterward. It was sent for further testing but was rejected due to stool being formed/hard. No fever overnight - Exam Vitals: Temp Pulse Resp BP Pulse Ox 98.4 F 91 16 118/66 97 09/05/18 12:30 09/05/18 12:30 09/05/18 12:30 09/05/18 12:30 09/05/18 12:30 Exam: General: Alert and oriented, not in acute distress. Cardiovascular:Normal S1 & S2, No JVD. Pulse regular. Lungs: clear to auscultation, no wheezes/rales Abdomen:Soft, mild LLQ tenderness without rebound/guarding/rigidity. Extremities:No deformity or swelling Neurological:Normal cognition and motor skills. Non-focal - Assessment and Plan (1) Colitis Current Visit: Yes Status: Acute Assessment and Plan: Patient reports immediate relief after having bowel movement yesterday, which was hard and formed Specimen rejected for further testing due to its consistency Nevertheless, patient was also started on antibiotics and initial CT was concerning for inflammatory changes on the areas of the colon corresponding to her tenderness on exam. will continue cipro/flagyl, will discuss with GI whether there is a plan on any further intervention monitor stool output (2) ESRD (end stage renal disease) on dialysis Current Visit: Yes Status: Chronic Assessment and Plan: Hemodialysis per nephrology. Appreciate input (3) Diabetes mellitus Current Visit: Yes Status: Chronic Assessment and Plan: well-controlled, hold off on glipizide and cover with sliding scale insulin (4) HTN (hypertension) Current Visit: Yes Status: Chronic Assessment and Plan: Continue home meds (5) DVT prophylaxis Current Visit: Yes Status: Acute Assessment and Plan: Subcutaneous heparin - Time Spent with Patient Total time spent is greater than 50% in coordination of care (as documented) at patient's floor/unit and/or counseling patient: 25 - 35 minutes Plan of Care Discussed with: patient ([facility], awaiting for response) Internal Medicine: Result - Labs CBC & Chem 7: 09/05/18 Unknown 09/05/18 Unknown Labs: Short CBC 09/05/18 09/05/18 Range/Units 10:06 Unknown WBC 6.6 6.9 (4.3-11.1) K/mcL Hgb 9.4 L 8.7 L (11.5-15.4) g/dL Hct 29.7 L 28.2 L (35.3-44.9) % Plt Count 156 153 (140-400) K/mcL Neutrophils # 4.1 (1.6-8.9) K/mcL BMP 09/05/18 Unknown Sodium 138 Potassium 4.5 Chloride 100 Carbon Dioxide 30 H BUN 36 H Creatinine 4.25 H Glucose 113 H Calcium 8.7 - ABG Interpretation ABG results: PT/INR, D-dimer PT 12.3 Seconds (9.4-12.1) H 09/04/18 06:58 Consult Discharge Plan - Plan Referrals: Bill Candelaria MD [Primary Care Provider] - (3) Diabetes mellitus Qualifiers: Diabetes mellitus type: type 2 Diabetes 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
[2018-09-05] MEDS: amLODIPine 5 MG TABLET PO SCH (13:25)
[2018-09-05] MEDS: Loratadine 10 MG TABLET PO SCH (13:42)
[2018-09-05] MEDS: Lactobacillus 1 EACH CAP.SPRINK PO SCH ×2 (13:42→22:14)
[2018-09-05] MEDS: cloNIDine HCl 0.1 MG TABLET PO SCH ×2 (13:43→22:15)
[2018-09-05] MEDS: Aspirin Enteric Coated 81 MG Tablet PO SCH (13:43)
--- NOTE | 2018-09-05 14:00 | Gastroenterology Consult Note ---
Date of Encounter: 09/05/18 Time of Encounter: 11:10 - Assessment and plan (1) Colitis Current Visit: Yes Status: Acute Assessment and plan: CT A/P at [facility] showed inflammatory changes in descending and sigmoid colon concerning for peritonitis vs inflammatory malignancy. Infectious colitis vs ischemic colitis. Patient stated her BP dropped during dialysis recently. Continue Cipro and Flagyl to cover for infectious colitis. Plan for colonoscopy in 6-8 weeks as outpatient. (2) ESRD (end stage renal disease) on dialysis Current Visit: Yes Status: Chronic Assessment and plan: Management per Nephrology. (3) Constipation Current Visit: Yes Status: Acute Assessment and plan: Start daily fiber supplement. Qualifiers: Constipation type: unspecified constipation type Qualified Code(s): K59.00 - Constipation, unspecified - Time Spent With Patient Total time spent is greater than 50% in coordination of care (as documented) at patient's floor/unit and/or counseling patient: GI History of Present Illness - Data of Consult Patient: new to practice Consult date: 09/05/18 Requesting Physician: Chao Mccain MD - Consult Narrative Reason for consult: Colitis History of present illness: Ms. Rubin is a 77 year old female with PMHx of DM, HLD, HTN, ESRD, who presents in transfer from [facility] ED for concerns of colitis, hyperkalemia, and missed dialysis. She reports LLQ abdominal pain that was present for about 1 week, but states the pain is now nearly resolved. She reports no BM for several days prior to admission and had large BM 09/04 and has felt "much better" since that time. CT A/P at [facility] showed inflammatory changes in descending and sigmoid colon concerning for peritonitis vs inflammatory malignancy. She was started on Cipro and Flagyl on admisison. Patient does report her BP dropped during dialysis 1-2 weeks ago. Procedures: Colonoscopy 09/07/2017 Dr. Reagan: Two 4-6mm tubular adenomas. NSAIDs: ASA Anticoagulation: None Past Med Surg Social Fam HX - Past Medical History Medical history: diabetes, hyperlipidemia, hypertension, renal disease Additional medical history: CKD. PELVIC MASS. ANEMIA. CATARACTS. GOUT Psychiatric history: depression - Past Surgical History Surgical History: appendectomy, cataract, cholecystectomy, hysterectomy, knee replacement, orthopedic, other Additional surgical history: cataract surg bilateral eyes - Social History Smoking Status: Never smoker Smokeless Tobacco Status: No Alcohol use: none Drug use: none - Family History Mother Living Status: Hx Family Endocrine Disorder: Yes (DM) Father Living Status: - Gastrointestinal Gastrointestinal: Present: as per HPI - Constitutional Constitutional: as per HPI - EENT Eyes: as per HPI Ears: Present: as per HPI Nose, mouth and throat: Present: as per HPI - Cardiovascular Cardiovascular ROS: Present: as per HPI - Respiratory Respiratory IM: Present: as per HPI - Genitourinary Genitourinary: Absent: change in color, Urinary frequency - Neurological ROS Neurological GI: Present: as per HPI - Hematologic/Lymphatic Hematologic/Lymphatic pediatric: Present: as per HPI - Musculoskeletal Musculoskeletal ROS GI: Present: as per HPI - Integumentary Integumentary GI: Present: as per HPI - Psychiatric ROS Psychiatric GI: Present: as per HPI - Endocrine Endocrine IM: Present: as per HPI - Constitutional Vitals: Temp Pulse Resp BP Pulse Ox 98.4 F 91 16 118/66 97 09/05/18 12:30 09/05/18 12:30 09/05/18 12:30 09/05/18 12:30 09/05/18 12:30 General appearance: Present: cooperative, A&O X 3, no acute distress, answers questions appropriately - Head Head exam: Present: atraumatic, normocephalic - Eye Eye exam: Present: normal appearance, sclera anicteric - ENT ENT exam: Present: mucous membranes moist - Neck Neck exam general surgery: Present: normal inspection, trachea midline - Respiratory Respiratory exam: Present: CTAB. Absent: rales, rhonchi - Cardiovascular Cardiovascular exam: Present: RRR, +S1, +S2 - GI/Abdominal GI/Abdominal exam: Present: soft, tenderness (mild LLQ tenderness), no peritoneal signs. Absent: distended, firm, guarding - Rectal Rectal exam: Present: deferred - Extremities Exam Extremities exam: Present: warm - Neurological Exam Neurological exam: Present: no focal deficits - Psychiatric Psychiatric exam: Present: normal affect, normal mood - Skin Skin exam: Present: dry, intact, normal color, warm Results - Labs CBC & Chem 7: 09/05/18 Unknown 09/05/18 Unknown Labs: Last Result Calcium 8.7 mg/dL (8.6-10.3) 09/05/18 Unknown Entire Visit Hgb 8.7 g/dL (11.5-15.4) L 09/05/18 Unknown Hct 28.2 % (35.3-44.9) L 09/05/18 Unknown PT 12.3 Seconds (9.4-12.1) H 09/04/18 06:58 - ABG ABG results: PT/INR, D-dimer PT 12.3 Seconds (9.4-12.1) H 09/04/18 06:58 Consult Discharge Plan - Plan Referrals: Bill Candelaria MD [Primary Care Provider] -
--- NOTE | 2018-09-05 16:17 | Nephrology Progress Note ---
Date of Encounter: 09/05/18 Time of Encounter: 16:17 - Assessment and Plan (1) ESRD (end stage renal disease) on dialysis Current Visit: Yes Status: Chronic HD MWF. Renal vitamins. Renal dose medications. Renal diet. Additional dialysis and ultrafiltration as needed. 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 Objective - Vital Signs Vital signs: Vital Signs Temp Pulse Resp BP Pulse Ox 09/05/18 15:34 98.7 F 93 16 113/68 92 09/05/18 12:30 98.4 F 91 16 118/66 97 09/05/18 12:20 96.9 F L 17 125/64 09/05/18 12:10 115/47 09/05/18 11:55 122/54 09/05/18 11:40 111/58 09/05/18 11:25 123/64 09/05/18 11:10 124/50 09/05/18 10:55 142/77 09/05/18 10:40 155/77 09/05/18 10:25 137/62 09/05/18 10:10 156/61 09/05/18 09:55 144/63 09/05/18 09:40 133/60 09/05/18 09:25 164/74 09/05/18 09:00 92 09/05/18 07:57 98.8 F 92 16 139/70 92 09/05/18 03:59 98.3 F 83 16 124/71 92 09/05/18 00:15 98.6 F 95 16 143/72 91 09/04/18 19:34 98.4 F 92 18 145/70 92 Intake and Output 09/05/18 09/05/18 09/05/18 07:59 15:59 23:59 Intake Total 100 / 100 120 / 120 Output Total 0 / 0 3600 / 3600 Balance 100 / 100 -3480 / -3480 Intake: IV Fluids 100 / 100 Flagyl Premix 500 MG/100 ML 500 100 / 100 mg In 100 ml @ 100 mls/hr IVPB Q8HR [facility] Rx#:[id number] Oral 0 / 0 120 / 120 Output: Urine 0 / 0 0 / 0 Total Dialysis (HD) Output 3600 / 3600 Other: # Voids 1 0 # Urine Diapers 1 Weight 135.5 kg Blood Glucose* 99 110 Hemodialysis Net Fluid Removed 3000 (mL) Patient Weight 09/05/18 23:59 Weight 135.5 kg - General Appearance General appearance: Present: well-developed, well-nourished EENT: Present: ATNC Neck: Present: supple Cardiology: Present: regular rate Neurologic: Present: alert and oriented x3 Psychiatric: Present: mood/affect appropriate - Lab 09/05/18 Unknown 09/05/18 Unknown Most recent lab results Calcium 8.7 mg/dL (8.6-10.3) 09/05/18 Unknown Consult Discharge Plan - Plan Referrals: Bill Candelaria MD [Primary Care Provider] -
[2018-09-06] MEDS: MetroNIDAZOLE 500 MG/100 ML 500 MG/100 ML BAG IVPB SCH ×2 (01:27→08:19)
[2018-09-06 05:54] LABS: Hematocrit 32.1 % (35.3-44.9); Hemoglobin 9.9 g/dL (11.5-15.4); Mean Corpuscular HGB Conc 30.8 g/dL (31.6-35.5); Mean Corpuscular Hemoglobin 28.9 pg (28.0-33.3); Mean Corpuscular Volume 93.6 fL (83.0-100.0); Mean Platelet Volume 9.6 fL (9.4-12.4); Platelet Count 169 K/mcL (140-400); Red Blood Count 3.43 M/mcL (3.82-4.97); Red Cell Distribution Width 14.6 % (11.5-14.5)
[2018-09-06] MEDS: *HR* Heparin 5,000 UNIT/ML VIAL SQ SCH (06:39)
[2018-09-06 06:48] LABS: Calcium 9.4 mg/dL (8.6-10.3); Potassium 3.9 mEq/L (3.5-5.1)
[2018-09-06] MEDS: Aspirin Enteric Coated 81 MG Tablet PO SCH (08:19)
[2018-09-06] MEDS: Lactobacillus 1 EACH CAP.SPRINK PO SCH (08:19)
[2018-09-06] MEDS: cloNIDine HCl 0.1 MG TABLET PO SCH (08:20)
[2018-09-06] MEDS: Loratadine 10 MG TABLET PO SCH (08:20)
[2018-09-06] MEDS: amLODIPine 5 MG TABLET PO SCH (08:20)
[2018-09-06] MEDS: Insulin LISPRO 300 UNITS/3 ML VIAL SQ SCH (08:20)
[2018-09-06 10:34] VITALS: BP 134/72
--- NOTE | 2018-09-06 11:55 | Discharge Summary ---
- NOTES TO OUTPATIENT PROVIDER Notes to Outpatient Provider: Follow-up with GI (or surgery if she desires) in 6-8 weeks for colonoscopy Orders not resulted at time of discharge: Pending orders 09/04/18 03:09 ECG 12 lead ECG [ECG] Routine 09/04/18 06:50 Culture,Blood [BC] Stat 09/07/18 04:00 Basic Metabolic Panel AM 0400 CBC no Diff [Complete Blood Count w/o Diff] [HEME] AM 04009/08/18 04:00 Basic Metabolic Panel AM 0400 CBC no Diff [Complete Blood Count w/o Diff] [HEME] AM 04009/09/18 04:00 Basic Metabolic Panel AM 0400 CBC no Diff [Complete Blood Count w/o Diff] [HEME] AM 04009/10/18 04:00 Basic Metabolic Panel AM 0400 CBC no Diff [Complete Blood Count w/o Diff] [HEME] AM 04009/11/18 04:00 Basic Metabolic Panel AM 0400 CBC no Diff [Complete Blood Count w/o Diff] [HEME] AM 04009/12/18 04:00 Basic Metabolic Panel AM 0400 CBC no Diff [Complete Blood Count w/o Diff] [HEME] AM 0400 09/13/18 04:00 Basic Metabolic Panel AM 0400 CBC no Diff [Complete Blood Count w/o Diff] [HEME] AM 04009/14/18 04:00 Basic Metabolic Panel AM 0400 CBC no Diff [Complete Blood Count w/o Diff] [HEME] AM 0400 Date of Encounter: 09/06/18 Time of Encounter: 08:15 - Discharge Diagnosis (1) Colitis Priority: Primary Status: Acute (2) ESRD (end stage renal disease) on dialysis Priority: Secondary Status: Chronic (3) Diabetes mellitus Priority: Secondary Status: Chronic Qualifiers: Diabetes mellitus type: type 2 Diabetes 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 Scottie is a 77 year old female history of ESRD on dialysis MWF who was admitted for the concern of colitis. CT scan done at the outside facility showed diffuse inflammatory changes of the colon on the descending and sigmoid colon. ?ischemic vs. infectious colitis. Interestingly, patient's symptom significantly improved after bowel movement, which was not watery for sampling. Regardless, after evaluation by GI, it was felt that it would be reasonable to treat as per infectious etiology with a total of 7 days course of abx and follow up with GI in 6-8 weeks for colonoscopy. Patient states that she has had prior colonoscopy done with surgery and will choose who she will contact for repeat procedure. Discharge discussed with: patient, nurse, healthcare economics consultant - Time Spent with Patient Total time spent providing and/or coordinating discharge services: 32 mins - Discharge Medications Prescriptions: New Ciprofloxacin [Cipro] 500 mg PO DAILY #5 tablet metroNIDAZOLE [Flagyl] 500 mg PO TID 5 Days #15 tablet Continue Allopurinol [Zyloprim 100 MG] 200 mg PO DAILY Venlafaxine [Effexor] 75 mg PO TIDWM GlipiZIDE XL (24 HR) [Glucotrol XL] 2.5 mg PO DAILY Aspirin Enteric Coated [Aspirin EC] 81 mg PO DAILY #30 tablet. Cetirizine HCl 10 mg PO DAILY HYDROcodone/Acet 5/325 mg [[place] 5-325 mg] 1 tab PO Q8H PRN PRN Reason: Mild To Moderate Pain Ferrous Sulfate 325 mg PO BIDWM #60 tablet Omeprazole [PriLOSEC] 40 mg PO DAILY #30 cap Lactobacillus [Culturelle] 1 each PO BID #20 cap.sprink amLODIPine [Norvasc] 5 mg PO DAILY Cholecalciferol (Vitamin D3) [Dialyvite Vitamin D] 10,000 unit PO DAILY cloNIDine HCl [CloNIDine HCl] 0.1 mg PO BID Losartan Potassium 25 mg PO DAILY Lovastatin 40 mg PO DAILY Docusate Sodium [Colace] 100 mg PO DAILY PRN PRN Reason: Constipation Home Medications: Allopurinol [Zyloprim 100 MG] 200 mg PO DAILY 05/13/15 [History] GlipiZIDE XL (24 HR) [Glucotrol XL] 2.5 mg PO DAILY 03/22/16 [History] Venlafaxine [Effexor] 75 mg PO TIDWM 03/22/16 [History] Aspirin Enteric Coated [Aspirin EC] 81 mg PO DAILY #30 tablet. 03/25/16 [Rx] Cetirizine HCl 10 mg PO DAILY 06/25/17 [History] HYDROcodone/Acet 5/325 mg [[place] 5-325 mg] 1 tab PO Q8H PRN 06/25/17 [History] Ferrous Sulfate 325 mg PO BIDWM #60 tablet 06/27/17 [Rx] Omeprazole [PriLOSEC] 40 mg PO DAILY #30 cap 06/27/17 [Rx] Lactobacillus [Culturelle] 1 each PO BID #20 cap.sprink 03/15/18 [Rx] Cholecalciferol (Vitamin D3) [Dialyvite Vitamin D] 10,000 unit PO DAILY 09/04/18 [History] Docusate Sodium [Colace] 100 mg PO DAILY PRN 09/04/18 [History] Losartan Potassium 25 mg PO DAILY 09/04/18 [History] Lovastatin 40 mg PO DAILY 09/04/18 [History] amLODIPine [Norvasc] 5 mg PO DAILY 09/04/18 [History] cloNIDine HCl [CloNIDine HCl] 0.1 mg PO BID 09/04/18 [History] Ciprofloxacin [Cipro] 500 mg PO DAILY #5 tablet 09/06/18 [Rx] metroNIDAZOLE [Flagyl] 500 mg PO TID 5 Days #15 tablet 09/06/18 [Rx] Allergies/Adverse Reactions: Allergy/AdvReac Type Severity Reaction Status Date / Time No Known Allergies Allergy Verified 09/04/18 13:13 Date of admission: 09/04/18 03:08 Primary care physician: Bill Candelaria MD Consults: 09/04/18 03:09 Consult to Nephrology [CONS] Routine Consulting Provider: Kidney Salud/LISSA/TIFFANIE/ORI Reason for Consult: ESRD on dialysis Call Completed: No 09/04/18 03:11 Consult to Physician [CONS] Routine Consulting Provider: Jonah Crook Reason for Consult: colitis; ? inflammatory malignancy per CT report Call Completed: No 09/04/18 08:45 Consult to Dialysis [CONS] ONCE 09/05/18 07:43 Consult to Dialysis [CONS] Stat - Constitutional Vitals: Temp Pulse Resp BP Pulse Ox 97.9 F 88 18 134/72 92 09/06/18 10:32 09/06/18 10:32 09/06/18 10:32 09/06/18 10:32 09/06/18 10:32 General appearance: Present: cooperative, A&O X 3, pleasant, answers questions appropriately Exam: General: Alert and oriented, not in acute distress. Cardiovascular:Normal S1 & S2, No JVD. Pulse regular. Lungs: clear to auscultation, no wheezes/rales Abdomen:Soft, nontender Extremities:No deformity or swelling Neurological:Normal cognition and motor skills. Non-focal - Patient Status Disposition: Home Health Service Condition: Fair Functional capacity at discharge: independent ambulation Overall status at discharge: patient is progressing back to baseline - Discharge Instructions Instructions: Diabetes Mellitus Type 2 in Adults (DC), Chronic Hypertension (DC) Follow Up With: Bill Candelaria MD [Primary Care Provider] - Raudel Reagan DO [Partnered Physician] - Mathew Orozco MD [Partnered Physician] - Additional Instructions: Complete a course of Cipro/Flagyl Follow-up with GI/surgery for colonoscopy in 6-8 weeks per pt's preference. - Diet and Activity Activity: resume usual activities as tolerated Diet: advance to your usual diet
--- NOTE | 2018-09-06 11:59 | Physician Discharge Referral ---
Home Health/Hosp Referral Info Transfer to: Home Health Provider in Charge Post Discharge: PCP - Diagnosis (1) Colitis Priority: Primary Status: Acute (2) ESRD (end stage renal disease) on dialysis Priority: Secondary Status: Chronic (3) Diabetes mellitus Priority: Secondary Status: Chronic (4) HTN (hypertension) Priority: Secondary Status: Chronic (5) DVT prophylaxis Priority: Secondary Status: Acute - Respiratory Orders Smoking Cessation: Smoking cessation has been advised. For more information, call the [place] Tobacco Quit Line at 7-034-MVKQ-NOW. - Services Needed Following services are medically necessary services: Nursing, Home Health Aide - Transfer Medications Prescriptions: Ciprofloxacin [Cipro] 500 mg PO DAILY #5 tablet metroNIDAZOLE [Flagyl] 500 mg PO TID 5 Days #15 tablet Home Medications: Allopurinol [Zyloprim 100 MG] 200 mg PO DAILY 05/13/15 [History] GlipiZIDE XL (24 HR) [Glucotrol XL] 2.5 mg PO DAILY 03/22/16 [History] Venlafaxine [Effexor] 75 mg PO TIDWM 03/22/16 [History] Aspirin Enteric Coated [Aspirin EC] 81 mg PO DAILY #30 tablet. 03/25/16 [Rx] Cetirizine HCl 10 mg PO DAILY 06/25/17 [History] HYDROcodone/Acet 5/325 mg [[place] 5-325 mg] 1 tab PO Q8H PRN 06/25/17 [History] Ferrous Sulfate 325 mg PO BIDWM #60 tablet 06/27/17 [Rx] Omeprazole [PriLOSEC] 40 mg PO DAILY #30 cap 06/27/17 [Rx] Lactobacillus [Culturelle] 1 each PO BID #20 cap.sprink 03/15/18 [Rx] Cholecalciferol (Vitamin D3) [Dialyvite Vitamin D] 10,000 unit PO DAILY 09/04/18 [History] Docusate Sodium [Colace] 100 mg PO DAILY PRN 09/04/18 [History] Losartan Potassium 25 mg PO DAILY 09/04/18 [History] Lovastatin 40 mg PO DAILY 09/04/18 [History] amLODIPine [Norvasc] 5 mg PO DAILY 09/04/18 [History] cloNIDine HCl [CloNIDine HCl] 0.1 mg PO BID 09/04/18 [History] Ciprofloxacin [Cipro] 500 mg PO DAILY #5 tablet 09/06/18 [Rx] metroNIDAZOLE [Flagyl] 500 mg PO TID 5 Days #15 tablet 09/06/18 [Rx] Allergies/Adverse Reactions: Allergy/AdvReac Type Severity Reaction Status Date / Time No Known Allergies Allergy Verified 09/04/18 13:13 Certification: Further, I certify that my clinical findings support that this patient is homebound (i.e. absences from home require considerable and taxing effort and are for medical reasons or orthodoxy services or infrequently or short duration when for other reasons) because: Homebound Reason: Patient requires assistance of a person or device to safely leave home Attestation: My signature below is to certify that this patient is under my care and that I, or nurse practitioner, or a physician's court assistant working with me, has a [id number] encounter with this patient.
--- NOTE | 2018-09-06 15:16 | Nephrology Progress Note ---
Date of Encounter: 09/06/18 Time of Encounter: 15:15 - Assessment and Plan (1) ESRD (end stage renal disease) on dialysis Current Visit: Yes Status: Chronic (2) Colitis Current Visit: Yes Status: Acute (3) Constipation Current Visit: Yes Status: Acute Qualifiers: Constipation type: unspecified constipation type Qualified Code(s): K59.00 - Constipation, unspecified (4) Diabetes mellitus Current Visit: Yes Status: Chronic Qualifiers: Diabetes mellitus type: type 2 Diabetes mellitus chcf insulin use: unspecified chcf insulin use status Diabetes mellitus complication status: with unspecified complications Qualified Code(s): E11.8 - Type 2 diabetes mellitus with unspecified complications Subjective Principal diagnosis: esrd Interval history: Patient seen no new complaint. Objective - Vital Signs Vital signs: Vital Signs Temp Pulse Resp BP Pulse Ox 09/06/18 10:32 97.9 F 88 18 134/72 92 09/06/18 08:00 92 09/06/18 06:23 98.1 F 81 18 129/54 94 09/06/18 04:46 98.6 F 80 16 127/72 95 09/05/18 19:52 98.9 F 90 16 116/70 95 09/05/18 15:34 98.7 F 93 16 113/68 92 Intake and Output 09/05/18 09/06/18 09/06/18 23:59 07:59 15:59 Intake Total 100 / 100 100 / 100 490 / 490 Output Total 0 / 0 Balance 100 / 100 100 / 100 490 / 490 Intake: IV Fluids 100 / 100 100 / 100 Flagyl Premix 500 MG/100 ML 500 100 / 100 100 / 100 mg In 100 ml @ 100 mls/hr IVPB Q8HR [facility] Rx#:[id number] Oral 0 / 0 490 / 490 Output: Urine 0 / 0 Other: Meal Breakfast Percent of Meal Consumed 100% # Urine Diapers 1 Weight 133.2 kg Blood Glucose* 138 125 192 Patient Weight 09/06/18 23:59 Weight 133.2 kg - Lab 09/06/18 04:38 09/06/18 04:38 Most recent lab results Calcium 9.4 mg/dL (8.6-10.3) 09/06/18 04:38 Consult Discharge Plan - Plan Instructions: Diabetes Mellitus Type 2 in Adults (DC), Chronic Hypertension (DC) Additional Instructions: Complete a course of Cipro/Flagyl Follow-up with GI/surgery for colonoscopy in 6-8 weeks per pt's preference. Referrals: Raudel Reagan DO [Partnered Physician] - 09/11/18 1:40 pm (Consultation for Colonoscopy in 6-8 weeks.) Prescriptions: Ciprofloxacin [Cipro] 500 mg PO DAILY #5 tablet metroNIDAZOLE [Flagyl] 500 mg PO TID 5 Days #15 tablet
== END 2018-09-06 16:50 | disposition home health service (06) | DRG 391 ==
LOC: 3ANU → SUATTDRO 09-04 03:08
PROVIDERS: ADMIT Family Medicine; ATTEND Internal Medicine

== ENCOUNTER 2020-04-26 12:25 | Observation (INO) ==
[2020-04-26] MEDS ORDERED: Naloxone 0.4 MG/ML INJ IVP PRN (15:39)
[2020-04-26] MEDS ORDERED: MOM Conc 10 ML UD.LIQ PO PRN (15:39)
[2020-04-26] MEDS ORDERED: D5% in Water 1,000 ML IVC PRN (15:44)
[2020-04-26] MEDS ORDERED: *HR* Dextrose 50 % in Water (Vial) 50 ML VIAL IVP PRN (15:44)
[2020-04-26] MEDS ORDERED: Dextrose Gel 15 GM/37.5 ML TUBE PO PRN ×2 (15:44)
[2020-04-26] MEDS ORDERED: Bisacodyl 10 MG RECTAL SUPPOSITORY RC PRN (15:46)
[2020-04-26] MEDS ORDERED: Morphine Sulfate 2 MG/ML SYRINGE IVP PRN (15:48)
[2020-04-26 16:35] LABS: Basophils % 0.4 %; Red Blood Count 3.13 M/mcL (3.82-4.97); Red Cell Distribution Width 13.8 % (11.5-14.5); Segmented Neutrophils % 68.8 %
[2020-04-26 16:37] LABS: Basophils # 0.1 K/mcL (0.0-0.2); Eosinophils # 0.3 K/mcL (0.0-0.6); Eosinophils % 2.1 %; Hematocrit 29.6 % (35.3-44.9); Hemoglobin 9.8 g/dL (11.5-15.4); Immature Granulocytes % 0.5 % (0-4); Immature Platelets 2.4 % (1.1-6.1); Lymphocytes # 2.1 K/mcL (0.6-4.6); Lymphocytes % 17.9 %; Mean Corpuscular HGB Conc 33.1 g/dL (31.6-35.5); Mean Corpuscular Hemoglobin 31.3 pg (28.0-33.3); Mean Corpuscular Volume 94.6 fL (83.0-100.0); Mean Platelet Volume 10.2 fL (9.4-12.4); Monocytes # 1.2 K/mcL (0.0-1.3); Monocytes % 10.3 %; White Blood Count 11.7 K/mcL (4.3-11.1)
[2020-04-26] MEDS: MetroNIDAZOLE 500 MG/100 ML 500 MG/100 ML BAG IVPB SCH (16:47)
[2020-04-26] MEDS: 0.9 % Sodium Chloride 1,000 ML IVC SCH (16:48)
[2020-04-26] MEDS: Insulin LISPRO 300 UNITS/3 ML VIAL SQ SCH (16:51)
[2020-04-26] MEDS: *HR* Heparin 5,000 UNIT/ML VIAL SQ SCH (16:51)
[2020-04-26 16:52] LABS: Calcium 8.7 mg/dL (8.6-10.3); Potassium 5.8 mEq/L (3.5-5.1)
[2020-04-26 17:32] LABS: Neutrophils # 8.1 K/mcL (1.6-8.9)
[2020-04-26 17:34] LABS: Platelet Count 91 K/mcL (140-400)
[2020-04-26] MEDS: cloNIDine HCL 0.1 MG TABLET PO SCH (20:27)
[2020-04-26] MEDS: Ondansetron 4 MG/2 ML VIAL IVP PRN (23:23)
[2020-04-27] MEDS: 0.9 % Sodium Chloride 1,000 ML IVC SCH (03:18)
[2020-04-27] MEDS: MetroNIDAZOLE 500 MG/100 ML 500 MG/100 ML BAG IVPB SCH ×3 (03:18→15:32)
[2020-04-27] MEDS: Insulin LISPRO 300 UNITS/3 ML VIAL SQ SCH ×5 (03:27→22:42)
[2020-04-27] MEDS: *HR* Heparin 5,000 UNIT/ML VIAL SQ SCH ×2 (06:20→18:42)
[2020-04-27] MEDS ORDERED: 0.9 % Sodium Chloride 250 ML IVC PRN (07:21)
[2020-04-27] MEDS ORDERED: 0.9 % Sodium Chloride 1,000 ML PRIME SCH (07:30)
[2020-04-27] MEDS: Aspirin Enteric Coated 81 MG Tablet PO SCH (07:39)
[2020-04-27] MEDS: cloNIDine HCL 0.1 MG TABLET PO SCH ×2 (07:39→22:39)
[2020-04-27 09:24] LABS: Estimated Average Glucose 148 mg/dl; Hemoglobin A1C 6.8 %
[2020-04-27 09:26] LABS: Hepatitis B Surface Antibody < 3.10 mIU/mL
[2020-04-27 09:37] LABS: Hepatitis B Surface Antigen Nonreactive (Nonreactive)
[2020-04-27] MEDS ORDERED: 0.9 % Sodium Chloride 1,000 ML IVC SCH (10:00)
[2020-04-27] MEDS ORDERED: *HR* HYDROcodone/Acet 5/325 mg TABLET PO PRN (11:41)
[2020-04-28 07:10] LABS: Basophils % 0.7 %; Hematocrit 27.1 % (35.3-44.9); Immature Granulocytes % 0.2 % (0-4); Mean Corpuscular Volume 94.4 fL (83.0-100.0); Mean Platelet Volume 10.4 fL (9.4-12.4); Red Blood Count 2.87 M/mcL (3.82-4.97)
[2020-04-28 07:12] LABS: Eosinophils # 0.5 K/mcL (0.0-0.6); Eosinophils % 8.3 %; Hemoglobin 8.9 g/dL (11.5-15.4); Lymphocytes # 1.4 K/mcL (0.6-4.6); Lymphocytes % 25.7 %; Mean Corpuscular HGB Conc 32.8 g/dL (31.6-35.5); Monocytes # 0.7 K/mcL (0.0-1.3); Monocytes % 12.2 %; Platelet Count 82 K/mcL (140-400); Red Cell Distribution Width 13.6 % (11.5-14.5); Segmented Neutrophils % 52.9 %; White Blood Count 5.6 K/mcL (4.3-11.1)
[2020-04-28] MEDS: *HR* Heparin 5,000 UNIT/ML VIAL SQ SCH ×2 (07:43→16:46)
[2020-04-28 07:44] LABS: Calcium 8.7 mg/dL (8.6-10.3); Potassium 4.2 mEq/L (3.5-5.1)
[2020-04-28] MEDS: MetroNIDAZOLE 500 MG/100 ML 500 MG/100 ML BAG IVPB SCH ×4 (09:40→22:49)
[2020-04-28] MEDS: Aspirin Enteric Coated 81 MG Tablet PO SCH (09:48)
[2020-04-28] MEDS: cloNIDine HCL 0.1 MG TABLET PO SCH ×2 (09:48→20:39)
[2020-04-28] MEDS: Ondansetron 4 MG/2 ML VIAL IVP PRN ×2 (09:48→22:48)
[2020-04-28] MEDS: Insulin LISPRO 300 UNITS/3 ML VIAL SQ SCH ×4 (09:49→20:39)
[2020-04-29] MEDS: Ondansetron 4 MG/2 ML VIAL IVP PRN (06:19)
[2020-04-29] MEDS: *HR* Heparin 5,000 UNIT/ML VIAL SQ SCH ×2 (06:20→16:41)
[2020-04-29] MEDS ORDERED: 0.9 % Sodium Chloride 250 ML IVC PRN (07:41)
[2020-04-29] MEDS: cloNIDine HCL 0.1 MG TABLET PO SCH ×2 (08:09→20:19)
[2020-04-29] MEDS: Aspirin Enteric Coated 81 MG Tablet PO SCH (08:09)
[2020-04-29] MEDS: MetroNIDAZOLE 500 MG/100 ML 500 MG/100 ML BAG IVPB SCH (08:09)
[2020-04-29] MEDS: Insulin LISPRO 300 UNITS/3 ML VIAL SQ SCH ×4 (08:10→20:19)
[2020-04-29] MEDS ORDERED: Sennosides/Docusate Sodium TABLET PO ONE (08:17)
[2020-04-29] MEDS: metroNIDAZOLE 500 MG TABLET PO SCH (20:19)
[2020-04-30] MEDS: *HR* Heparin 5,000 UNIT/ML VIAL SQ SCH (05:28)
[2020-04-30 07:36] VITALS: BP 138/71
[2020-04-30] MEDS: Aspirin Enteric Coated 81 MG Tablet PO SCH (08:42)
[2020-04-30] MEDS: cloNIDine HCL 0.1 MG TABLET PO SCH (08:42)
[2020-04-30] MEDS ORDERED: Ondansetron ODT 4 MG TAB.RAPDIS SL PRN (08:45)
[2020-04-30] MEDS: Insulin LISPRO 300 UNITS/3 ML VIAL SQ SCH ×2 (08:46→11:53)
[2020-04-30] MEDS: metroNIDAZOLE 500 MG TABLET PO SCH (08:49)
[2020-04-30] MEDS ORDERED: amLODIPine 5 MG TABLET PO SCH (09:00)
[2020-04-30 11:49] LABS: Calcium 9.2 mg/dL (8.6-10.3); Potassium 4.4 mEq/L (3.5-5.1)
== END 2020-04-30 13:31 | disposition home or self-care (01) ==
LOC: 2ANU → SUATTDRO 14:38
PROVIDERS: ADMIT Internal Medicine; ATTEND Student in an Organized Health Care Education/Training Program